=== PATIENT | male | born 1945 | race Caucasian/White ===

== ENCOUNTER 2017-12-27 14:37 | Inpatient (IN) | payer OTHER ==
[~2017-12-27] VITALS: Ht 177.8 cm; Wt 113.0 kg
[~2017-12-27 14:37] MED LIST: ALL300 PO; ASPEC81 PO; ATEN-175 PO; CRS20 PO; FRS/40 PO; LRTUNK PO; LVT/20 PO; OMEP40CA PO; POTA10CA28 PO; RNXER500 PO; XNX25 PO
--- NOTE | 2017-12-27 15:09 | DIAGNOSTIC IMAGING REPORT ---
SINGLE VIEW CHEST CLINICAL HISTORY: Atypical chest pain. FINDINGS: An AP, portable, upright chest radiograph is obtained. No prior studies are available for comparison at the time of dictation. The examination is degraded by portable technique and patient rotation. The patient is status post midline sternotomy. The heart is enlarged and there is atherosclerotic calcification of the thoracic aorta. There is pulmonary vascular congestion. Bilateral airspace opacities are identified, greatest in the right midlung. Small pleural effusions are suspected. No pneumothorax is seen. The skeletal structures are osteopenic. Advanced arthritic change is seen in the shoulders and thoracic spine. There is chronic posttraumatic deformity of the right clavicle. IMPRESSION: 1. Cardiomegaly with evidence of congestive failure. 2. There are bilateral airspace opacities, asymmetrically greater on the right. This could represent a component of interstitial edema versus superimposed pneumonia. Clinical correlation will be required. 3. Suspect small pleural effusions. Electronically signed by: Rafa Boyd M.D. 12/27/2017 3:08 PM Dictated Date/Time: 12/27/2017 3:06 PM
[2017-12-27] MEDS ORDERED: ASPIRIN 81 MG CHEW PO STA (15:18)
[2017-12-27 15:24] LABS: BASO % 0.2 %; BASO ABS # 0.03 K/uL (0-0.2); EOS % 0.1 %; EOS ABS # 0.01 K/uL (0-0.5); HEMATOCRIT 37.5 % (42-52); HEMOGLOBIN 13.4 g/dL (14.0-18.0); IG# 0.07 K/uL (0.00-0.02); LYMPH % 7.7 %; LYMPH ABS # 1.14 K/uL (1.2-3.4); MEAN CELL VOLUME 90.1 fL (80-100); MEAN CORPUSCULAR HEMOGLOBIN 32.2 pg (25-34); MEAN CORPUSCULAR HGB CONC 35.7 g/dl (32-36); MEAN PLATELET VOLUME 9.6 fL (7.4-10.4); MONO % 8.4 %; MONO ABS # 1.24 K/uL (0.11-0.59); NEUT % 83.1 %; NEUT ABS # 12.26 K/uL (1.4-6.5); PLATELET COUNT 223 K/uL (130-400); RED CELL DISTRIBUTION WIDTH CV 13.6 % (11.5-14.5); RED CELL DISTRIBUTION WIDTH SD 44.3 fL (36.4-46.3); WHITE BLOOD COUNT 14.75 K/uL (4.8-10.8)
[2017-12-27 15:40] LABS: BLOOD UREA NITROGEN 16 mg/dl (7-18); CALCIUM 9.4 mg/dl (8.5-10.1); CARBON DIOXIDE 28 mmol/L (21-32); CREATININE 1.37 mg/dl (0.60-1.40); GLUCOSE 162 mg/dl (70-99); POTASSIUM 3.1 mmol/L (3.5-5.1); SODIUM 132 mmol/L (136-145)
[2017-12-27] MEDS ORDERED: COEN30CA8 PO (15:44)
[2017-12-27] MEDS ORDERED: ROSU40TA PO (15:44)
[2017-12-27] MEDS ORDERED: ASPI-232 PO (15:44)
[2017-12-27] MEDS ORDERED: ALL300 PO (15:44)
[2017-12-27] MEDS ORDERED: ALPR0.25 PO (15:44)
[2017-12-27] MEDS ORDERED: OMEP40CA41 PO (15:44)
[2017-12-27] MEDS ORDERED: ATEN50TA PO ×2 (15:44)
[2017-12-27] MEDS ORDERED: RNXER500 PO (15:44)
[2017-12-27] MEDS ORDERED: HYDR-5803 PO (15:44)
[2017-12-27 15:45] LABS: CKMB < 0.5 ng/ml (0.5-3.6)
[2017-12-27] MEDS ORDERED: LEVAQUIN 750MG / 150ML D5W IV STA (16:07)
[2017-12-27] MEDS ORDERED: SODIUM CHLORIDE 0.9% 1000ML 1,000 ML IV STA (16:07)
[2017-12-27] MEDS ORDERED: OPTIRAY 320 IV PRN (16:30)
--- NOTE | 2017-12-27 17:21 | DIAGNOSTIC IMAGING REPORT ---
CT ANGIOGRAM OF THE CHEST CLINICAL HISTORY: Atypical chest pain. COMPARISON STUDY: Chest x-ray dated 12/27/2017. TECHNIQUE: Following the IV administration of 97 cc of Optiray 320, CT angiogram of the chest was performed from the upper abdomen to the thoracic inlet utilizing the pulmonary embolus protocol. Images are reviewed in the axial, sagittal, and coronal planes. 3-D MIPS images are created and assessed. IV contrast was administered without complication. A dose lowering technique was utilized adhering to the principles of ALARA. The examination is degraded by streak artifact from the left arm which could not be elevated above the chest. CT DOSE: 671.53 mGy.cm FINDINGS: Thyroid: Imaged portions of the thyroid gland are normal in size and attenuation. Thoracic aorta: There is atherosclerotic calcification of the thoracic aorta, which is normal in caliber and demonstrates bovine variant arch anatomy. No dissection is seen. Pulmonary vasculature: The pulmonary trunk is normal in caliber. There are no filling defects identified in main, lobar, or segmental pulmonary branches to suggest pulmonary embolus. Heart: The patient is status post midline sternotomy. The heart is enlarged and without pericardial effusion. The coronary arteries are densely calcified. Lungs and pleural spaces: Advanced emphysema is identified. The trachea and central airways are clear. No pleural effusion is seen. There is multifocal groundglass consolidation seen throughout the right lung as well as in the left upper lobe. A more nodular focus of consolidation is seen at the right lung base on image #75 and measures up to 1.4 cm. Mediastinum: There are scattered subcentimeter mediastinal lymph nodes. These are not pathologically enlarged by size criteria. Ava: Mildly enlarged right hilar nodes measure up to 14 mm in short axis. Axillae: There is no axillary lymphadenopathy. Upper abdomen: There is a small hiatal hernia. Partially visualized upper abdominal viscera is otherwise within normal limits. Gynecomastia is noted. Skeletal structures: The skeletal structures are osteopenic. Degenerative change and hyperkyphosis are noted in the thoracic spine. No lytic or blastic bony lesions are seen. Advanced arthritic change is noted in the left shoulder. There is chronic posttraumatic deformity of the right clavicle. IMPRESSION: 1. There is no evidence of pulmonary embolus in the main, lobar, or segmental pulmonary arteries. 2. Cardiomegaly and advanced emphysema. 3. There is multifocal groundglass consolidation seen throughout the right lung and in the left upper lobe. The appearance is most typical for an infectious/inflammatory pneumonitis. Edema or hemorrhage is considered less likely. Clinical correlation will be required. 4. There is a more nodular focus of consolidative change at the right lung base measuring up to 1.4 cm. Again, this is likely on an infectious/inflammatory basis. A follow-up chest CT in 3-4 months is recommended to document resolution. 5. A mildly enlarged right hilar node is likely on a reactive basis. 6. Additional findings as above. Electronically signed by: Rafa Boyd M.D. 12/27/2017 5:19 PM Dictated Date/Time: 12/27/2017 5:12 PM
--- NOTE | 2017-12-27 17:51 | EMERGENCY ROOM VISIT NOTE ---
History Report prepared by Sheila: Suzi Carroll Under the Supervision of: Dr. Fernando Mcnamara D.O. First contact with patient: 14:47 Chief Complaint: SHORTNESS OF BREATH Stated Complaint: SHORTNESS OF BREATH History of Present Illness The patient is a 72 year old male who presents to the Emergency Room with complaints of intermittent shortness of breath beginning Wednesday, six days ago. The patient reports his shortness of breath worsens with exertion. He also notes intermittent left sided chest pressure beginning 6 months ago which has more recently been worsening with exertion. His pain is relieved with resting. Presently, The patient reports a history of stable angina. The patient has a history of a heart attack and stents in 1999. He also notes a cough which is been present for the past 2 days. He has been coughing up a green productive sputum. No fevers. He denies any new swelling in his legs. The patient takes a baby aspirin daily. Pt denies headache, change in vision, fevers, nausea, vomiting, diarrhea, pain with urination, and melena. Source of History: patient Onset: 6 days ago Position: other (generalized) Quality: other (shortness of breath) Timing: intermittent Modifying Factors (Worsening): exertion Associated Symptoms: + cough, + chest pain, + SOB, No fevers, No nausea, No vomiting, No diarrhea, No urinary symptoms Review of Systems See HPI for pertinent positives & negatives. A total of 10 systems reviewed and were otherwise negative. Past Medical & Surgical Medical Problems: (1) Heart attack Surgical Problems: (1) H/O heart artery stent Family History Patient reports no known family medical history. Social History Smoking Status: Former Smoker Marital Status: Housing Status: lives with significant other Occupation Status: retired Current/Historical Medications Scheduled Allopurinol (Allopurinol), 1 TAB PO DAILY Aspirin (Aspir-81), 1 TAB PO DAILY Atenolol (Tenormin), 1 TAB PO PM Atenolol (Tenormin), 100 MG PO QAM Coenzyme Q10 (Ubidecarenone) (Coq-10), 120 MG PO DAILY Furosemide (Lasix), 40 MG PO DAILY Omeprazole (Prilosec), 40 MG PO DAILY Potassium Chloride (Micro-K Ext Rel), 10 MEQ PO DAILY Ranolazine (Ranexa), 1 TAB PO BID Rosuvastatin Calcium (Crestor), 40 MG PO DAILY Vardenafil (Levitra), 20 MG PO DIRECTED Scheduled PRN Alprazolam (Xanax), 0.25 MG PO TID PRN for Anxiety Hydrocodone-Acetaminophen (Hydrocodone Bitartrate/AC 7.5-325 mg), 1 TAB PO Q6H PRN for Pain Allergies Coded Allergies: Sulfa Drugs (Verified Allergy, Unknown, 12/27/17) Physical Exam Vital Signs Date Time Temp Pulse Resp B/P (MAP) Pulse Ox O2 Delivery O2 Flow Rate FiO2 12/27/17 16:40 74 17 112/58 91 Room Air 12/27/17 14:44 36.7 86 20 127/79 91 Room Air Physical Exam GENERAL: Sitting up in bed, alert, ill appearing, well nourished, no distress, non-toxic EYE EXAM: normal conjunctiva. OROPHARYNX: no exudate, no erythema, lips, buccal mucosa, and tongue normal and mucous membranes are moist NECK: supple, no nuchal rigidity, no adenopathy, non-tender LUNGS: Clear to auscultation. Normal chest wall mechanics HEART: no murmurs, S1 normal and S2 normal ABDOMEN: abdomen soft, non-tender, normo-active bowel sounds, no masses, no rebound or guarding. BACK: Back is symmetrical on inspection and there is no deformity, no midline tenderness, no CVA tenderness. SKIN: no rashes and no bruising UPPER EXTREMITIES: upper extremities are grossly normal. LOWER EXTREMITIES: No pitting edema. Calves equal bilaterally. NEURO EXAM: Normal sensorium, cranial nerves II-XII grossly intact, normal speech, no gross weakness of arms, no gross weakness of legs. Medical Decision & Procedures ER Provider Diagnostic Interpretation: Radiology results as stated below per my review and the radiologist's interpretation: SINGLE VIEW CHEST FINDINGS: An AP, portable, upright chest radiograph is obtained. No prior studies are available for comparison at the time of dictation. The examination is degraded by portable technique and patient rotation. The patient is status post midline sternotomy. The heart is enlarged and there is atherosclerotic calcification of the thoracic aorta. There is pulmonary vascular congestion. Bilateral airspace opacities are identified, greatest in the right midlung. Small pleural effusions are suspected. No pneumothorax is seen. The skeletal structures are osteopenic. Advanced arthritic change is seen in the shoulders and thoracic spine. There is chronic posttraumatic deformity of the right clavicle. IMPRESSION: 1. Cardiomegaly with evidence of congestive failure. 2. There are bilateral airspace opacities, asymmetrically greater on the right. This could represent a component of interstitial edema versus superimposed pneumonia. Clinical correlation will be required. 3. Suspect small pleural effusions. Electronically signed by: Rafa Boyd M.D. CT ANGIOGRAM OF THE CHEST FINDINGS: Thyroid: Imaged portions of the thyroid gland are normal in size and attenuation. Thoracic aorta: There is atherosclerotic calcification of the thoracic aorta, which is normal in caliber and demonstrates bovine variant arch anatomy. No dissection is seen. Pulmonary vasculature: The pulmonary trunk is normal in caliber. There are no filling defects identified in main, lobar, or segmental pulmonary branches to suggest pulmonary embolus. Heart: The patient is status post midline sternotomy. The heart is enlarged and without pericardial effusion. The coronary arteries are densely calcified. Lungs and pleural spaces: Advanced emphysema is identified. The trachea and central airways are clear. No pleural effusion is seen. There is multifocal groundglass consolidation seen throughout the right lung as well as in the left upper lobe. A more nodular focus of consolidation is seen at the right lung base on image #75 and measures up to 1.4 cm. Mediastinum: There are scattered subcentimeter mediastinal lymph nodes. These are not pathologically enlarged by size criteria. Ava: Mildly enlarged right hilar nodes measure up to 14 mm in short axis. Axillae: There is no axillary lymphadenopathy. Upper abdomen: There is a small hiatal hernia. Partially visualized upper abdominal viscera is otherwise within normal limits. Gynecomastia is noted. Skeletal structures: The skeletal structures are osteopenic. Degenerative change and hyperkyphosis are noted in the thoracic spine. No lytic or blastic bony lesions are seen. Advanced arthritic change is noted in the left shoulder. There is chronic posttraumatic deformity of the right clavicle. IMPRESSION: 1. There is no evidence of pulmonary embolus in the main, lobar, or segmental pulmonary arteries. 2. Cardiomegaly and advanced emphysema. 3. There is multifocal groundglass consolidation seen throughout the right lung and in the left upper lobe. The appearance is most typical for an infectious/inflammatory pneumonitis. Edema or hemorrhage is considered less likely. Clinical correlation will be required. 4. There is a more nodular focus of consolidative change at the right lung base measuring up to 1.4 cm. Again, this is likely on an infectious/inflammatory basis. A follow-up chest CT in 3-4 months is recommended to document resolution. 5. A mildly enlarged right hilar node is likely on a reactive basis. 6. Additional findings as above. Electronically signed by: Rafa Boyd M.D. Laboratory Results 12/27/17 15:13 Red Blood Count 4.16, Mean Corpuscular Volume 90.1, Mean Corpuscular Hemoglobin 32.2, Mean Corpuscular Hemoglobin Concent 35.7, Mean Platelet Volume 9.6, Neutrophils (%) (Auto) 83.1, Lymphocytes (%) (Auto) 7.7, Monocytes (%) (Auto) 8.4, Eosinophils (%) (Auto) 0.1, Basophils (%) (Auto) 0.2, Neutrophils # (Auto) 12.26, Lymphocytes # (Auto) 1.14, Monocytes # (Auto) 1.24, Eosinophils # (Auto) 0.01, Basophils # (Auto) 0.03 12/27/17 15:13 Test 12/27/17 15:13 White Blood Count 14.75 K/uL (4.8-10.8) Red Blood Count 4.16 M/uL (4.7-6.1) Hemoglobin 13.4 g/dL (14.0-18.0) Hematocrit 37.5 % (42-52) Mean Corpuscular Volume 90.1 fL (80-100) Mean Corpuscular Hemoglobin 32.2 pg (25-34) Mean Corpuscular Hemoglobin Concent 35.7 g/dl (32-36) Platelet Count 223 K/uL (130-400) Mean Platelet Volume 9.6 fL (7.4-10.4) Neutrophils (%) (Auto) 83.1 % Lymphocytes (%) (Auto) 7.7 % Monocytes (%) (Auto) 8.4 % Eosinophils (%) (Auto) 0.1 % Basophils (%) (Auto) 0.2 % Neutrophils # (Auto) 12.26 K/uL (1.4-6.5) Lymphocytes # (Auto) 1.14 K/uL (1.2-3.4) Monocytes # (Auto) 1.24 K/uL (0.11-0.59) Eosinophils # (Auto) 0.01 K/uL (0-0.5) Basophils # (Auto) 0.03 K/uL (0-0.2) RDW Standard Deviation 44.3 fL (36.4-46.3) RDW Coefficient of Variation 13.6 % (11.5-14.5) Immature Granulocyte % (Auto) 0.5 % Immature Granulocyte # (Auto) 0.07 K/uL (0.00-0.02) D-Dimer 1530 ug/L FEU (0-500) Anion Gap 12.0 mmol/L (3-11) Estimated GFR () 60.1 Estimated GFR (Non- 51.9 BUN/Creatinine Ratio 11.9 (10-20) Calcium Level 9.4 mg/dl (8.5-10.1) Total Creatine Kinase 46 U/L (39-308) Creatine Kinase MB < 0.5 ng/ml (0.5-3.6) Creatine Kinase MB Ratio (0-3.0) Troponin I < 0.015 ng/ml (0-0.045) Laboratory results per my review. Medications Administered Medications (Trade) Dose Ordered Sig/Janine Route Start Time Stop Time Status Last Admin Dose Admin Aspirin (Aspirin Chew) 324 mg NOW STAT PO 12/27/17 15:18 12/27/17 15:19 DC 12/27/17 15:33 324 MG Sodium Chloride 1,000 ml @ 999 mls/hr Q1H1M STAT IV 12/27/17 16:07 12/27/17 17:07 DC 12/27/17 16:44 999 MLS/HR Levofloxacin (Levaquin / D5W) 750 mg NOW STAT IV 12/27/17 16:07 12/27/17 16:08 DC 12/27/17 16:45 750 MG ECG Per My Interpretation Indication: SOB/dyspnea Rate (beats per minute): 84 Rhythm: sinus rhythm Findings: T-wave inversion (Anterior and inferior), other (prolonged QT) Comparison ECG Date: 02/16/06 Change: changes are new ED Course ED COURSE: Vital signs were reviewed and showed hypoxic The patients medical record was reviewed The above diagnostic studies were performed and reviewed. ED treatments and interventions as stated above. 1448: The patient was evaluated in room C4. A complete history and physical examination was performed. 1518: Ordered Aspirin 324 mg PO. 1605: The patient is now reporting a green productive cough over past two days. 1607: Ordered Levofloxacin 750 mg IV, Sodium Chloride 1000 ml @ 999 mls/hr IV. 1722: I reviewed the patient's case with Paulette Echavarria. She will evaluate the patient for further management. 1726: Upon reevaluation, the patient is resting comfortably.I discussed my findings with the patient and he understands and agrees with the treatment plan. Based on the patients age, coexisting illnesses, exam and lab findings the decision to treat as an inpatient was made. The patient remained stable while under my care. The patient will be evaluated for further management. Medical Decision Differential diagnoses includes but is not limited to acute coronary syndrome, myocardial infarction, pericarditis, pulmonary embolus, aortic dissection, pneumonia, pneumothorax, musculoskeletal, shingles, esophageal. Patient is a 72-year-old male that presents to ER for shortness of breath with exertion associated with worsening chest pain with exertion over the past 6 months. CBC shows a mild leukocytosis of 14,000. BMP shows a potassium of 3.1. Troponin was negative. Chest x-ray shows likely bilateral pneumonia. Patient was given IV antibiotics with. With the elevated d-dimer and slight hypoxia with pulse ox of 89-91% patient was sent for CT PE which did show bilateral pneumonia. Updated patient at bedside. Discussed with internal medicine. He was admitted for further workup. EKG did show new T-wave changes which I do favor secondary to infection. Medication Reconcilliation Current Medication List: was personally reviewed by me Blood Pressure Screening Patient's blood pressure: Normal blood pressure Consults Time Called: 171 Consulting Physician: Paulette Echavarria Returned Call: [phone] I reviewed the patient's case with Paulette Echavarria. She will evaluate the patient for further management. Impression Primary Impression: Bilateral pneumonia Additional Impression: Hypoxia Scribe Attestation The scribe's documentation has been prepared under my direction and personally reviewed by me in its entirety. I confirm that the note above accurately reflects all work, treatment, procedures, and medical decision making performed by me. Departure Information Dispostion Being Evaluated By Hospitalist Referrals Hernando Arroyo D.O. (PCP) Patient Instructions My [facility] Problem Qualifiers Primary Impression: Bilateral pneumonia Pneumonia type: due to unspecified organism Lung location: unspecified part of lung Qualified Codes: J18.9 - Pneumonia, unspecified organism
[2017-12-27] MEDS ORDERED: ACETAMINOPHEN 325 MG TAB PO PRN (18:30)
[2017-12-27] MEDS ORDERED: ONDANSETRON INJ 2 MG/ML 2 ML VIAL IV PRN (18:30)
[2017-12-27] MEDS ORDERED: ALUMINUM/MAGNESIUM/SIMETH (MAALOX MAX) 30 ML UDC PO PRN (18:30)
[2017-12-27] MEDS ORDERED: ALBUT/IPRATROP 3MG/0.5MG NEB 3 ML VIAL INH PRN (18:30)
[2017-12-27] MEDS ORDERED: POLYETHYLENE (MIRALAX) 17 GM PACK PO PRN (18:30)
[2017-12-27] MEDS ORDERED: HYDR-5688 PO (18:34)
[2017-12-27] MEDS ORDERED: ALPR0.5T PO (18:34)
[2017-12-27] MEDS ORDERED: OMEP20CA9 PO (18:51)
[2017-12-27] MEDS ORDERED: CLR10 PO (18:51)
[2017-12-27] MEDS ORDERED: METO2.5T PO (18:51)
[2017-12-27] MEDS ORDERED: DEXT30TA7 PO (18:51)
[2017-12-27] MEDS ORDERED: SILD100T PO (18:51)
[2017-12-27] MEDS ORDERED: CHOL1TAB79 PO (18:51)
[2017-12-27] MEDS ORDERED: HYDROCODONE/ACETAMIN 5/325MG TAB PO PRN (19:00)
[2017-12-27] MEDS ORDERED: LORATADINE 10 MG TAB PO PRN (19:00)
[2017-12-27] MEDS ORDERED: GUAIFENESIN 600 MG TABCR PO PRN (19:00)
[2017-12-27] MEDS ORDERED: ALPRAZOLAM 0.5 MG TAB PO PRN (19:00)
--- NOTE | 2017-12-27 19:03 | History and Physical ---
History & Physical Date & Time of Service: Dec 27, 2017 at 18:54 Chief Complaint: Shortness Of Breath Primary Care Physician: Hernando Arroyo D.O. History of Present Illness Source: patient, clinic records, hospital records Patient is a 72-year-old male with the PMH of mixed systolic and diastolic CHF, CAD (CABG in ', stents in '), stable angina, h/o bladder cancer and other medical problems listed below who presents with worsening SOB 2 weeks. Patient is normally able to climb a flight of stairs without becoming SOB but has been unable to do that over the past few weeks. Endorses low-grade fever, chills and productive cough with green sputum over the past few days. Feels fatigued and endorses orthopnea. Denies weight gain, PND or LE swelling. Does not require home O2. Has been taking all medications as prescribed. Has been experiencing intermittent left-sided chest pain with exertion that is relieved with rest. States that this pain is no different than bouts of stable angina experienced in the past. Currently denies fever, chills, lightheadedness, headache, near syncope, visual changes, chest pain, palpitations, abdominal pain , nausea, vomiting, bowel or bladder changes or LE swelling. Past Medical/Surgical History Medical Problems: (1) Anxiety Status: Chronic (2) CAD (coronary artery disease) Permanent Comment: s/p CABG x 3 in 1993, stents x 3 in 1999, 2009 cardiac cath without worsening disease Status: Chronic (3) Gout Status: Chronic (4) H/O carcinoma of bladder Status: Chronic (5) HLD (hyperlipidemia) Status: Chronic (6) Left carotid stenosis Status: Chronic (7) Osteoarthritis Status: Chronic (8) Systolic and diastolic CHF, chronic Status: Chronic Surgical Problems: (1) H/O heart artery stent Status: Chronic Family History Diabetes mellitus FH: heart disease Social History Smoking Status: Former Smoker Alcohol Use: none Marital Status: Housing status: lives with significant other Occupational Status: retired Immunizations History of Tetanus Vaccine?: 2004 History of Pneumococcal: 2002 History of Hepatitis B Vaccine: No Allergies Coded Allergies: Sulfa Antibiotics (Verified Allergy, Unknown, ., 12/27/17) Home Medications Scheduled Allopurinol (Allopurinol), 1 TAB PO DAILY Aspirin (Aspir-81), 1 TAB PO DAILY Atenolol (Tenormin), 1 TAB PO PM Atenolol (Tenormin), 100 MG PO QAM Cholecalciferol (D3 2000), 1 TAB PO HS Coenzyme Q10 (Ubidecarenone) (Coq-10), 120 MG PO DAILY Furosemide (Lasix), 40 MG PO DAILY Metolazone (Zaroxolyn), 2.5 MG PO Black Omeprazole (Prilosec), 20 MG PO DAILY Potassium Chloride (Micro-K Ext Rel), 10 MEQ PO BID Ranolazine (Ranexa), 1 TAB PO BID Rosuvastatin Calcium (Crestor), 40 MG PO HS Sildenafil Citrate (Viagra), 100 MG PO PRN Scheduled PRN Alprazolam (Xanax), 1 TAB PO TID PRN for Anxiety/Insomnia Dextromethorphan-Guaifenesin (Mucinex Dm), 1 TAB PO Q12 PRN for Cough Hydrocodone/Acetaminophen 5MG/325MG (Whatley 5MG/325MG), 1 TABLET PO Q6H PRN for Pain Loratadine (Claritin), 10 MG PO DAILY PRN for Seasonal Allergies Review of Systems Constitutional: + fever, + chills, + fatigue Eyes: No worsening of vision, No diplopia ENT: + nasal symptoms, No hearing loss, No sore throat, No tinnitus Respiratory: + cough, + sputum, + wheezing, + shortness of breath, + dyspnea on exertion, No dyspnea at rest Cardiovascular: + orthopnea, No chest pain, No PND, No edema, No palpitations Abdomen: No pain, No nausea, No vomiting, No diarrhea, No constipation Genitourinary - Male: No hematuria, No dysuria Neurologic: No weakness, No numbness/tingling Integumentary: No rash, No itch, No new/changing skin lesions Physical Exam Vital Signs Date Time Temp Pulse Resp B/P (MAP) Pulse Ox O2 Delivery O2 Flow Rate FiO2 12/27/17 18:24 74 20 113/52 90 Room Air 12/27/17 16:40 74 17 112/58 91 Room Air 12/27/17 14:44 36.7 86 20 127/79 91 Room Air General Appearance: WD/WN, no apparent distress Head: normocephalic, atraumatic Eyes: normal inspection, PERRL, sclerae normal ENT: normal ENT inspection, hearing grossly normal, pharynx normal (dry mucous membranes ), + nasal congestion Neck: supple, thyroid normal, no JVD, trachea midline Respiratory/Chest: chest non-tender, no respiratory distress, no accessory muscle use, + crackles (bibasilar crackles. No wheezing or rhonchi ), + pertinent finding (Normal O2 saturation on room air ) Cardiovascular: regular rate, rhythm, no murmur, normal peripheral pulses, + pertinent finding (Trace BLE edema) Abdomen/GI: non tender, soft, no organomegaly Back: normal inspection Extremities/Musculoskelatal: normal inspection, no calf tenderness, no pedal edema Neurologic/Psych: no motor/sensory deficits, alert, normal mood/affect, oriented x 3 Skin: normal color, warm/dry Diagnostics Laboratory Results Results Past 24 Hours Test 12/27/17 15:13 12/27/17 18:44 Range/Units White Blood Count 14.75 4.8-10.8 K/uL Red Blood Count 4.16 4.7-6.1 M/uL Hemoglobin 13.4 14.0-18.0 g/dL Hematocrit 37.5 42-52 % Mean Corpuscular Volume 90.1 80-100 fL Mean Corpuscular Hemoglobin 32.2 25-34 pg Mean Corpuscular Hemoglobin Concent 35.7 32-36 g/dl Platelet Count 223 130-400 K/uL Mean Platelet Volume 9.6 7.4-10.4 fL Neutrophils (%) (Auto) 83.1 % Lymphocytes (%) (Auto) 7.7 % Monocytes (%) (Auto) 8.4 % Eosinophils (%) (Auto) 0.1 % Basophils (%) (Auto) 0.2 % Neutrophils # (Auto) 12.26 1.4-6.5 K/uL Lymphocytes # (Auto) 1.14 1.2-3.4 K/uL Monocytes # (Auto) 1.24 0.11-0.59 K/uL Eosinophils # (Auto) 0.01 0-0.5 K/uL Basophils # (Auto) 0.03 0-0.2 K/uL RDW Standard Deviation 44.3 36.4-46.3 fL RDW Coefficient of Variation 13.6 11.5-14.5 % Immature Granulocyte % (Auto) 0.5 % Immature Granulocyte # (Auto) 0.07 0.00-0.02 K/uL D-Dimer 1530 0-500 ug/L FEU Sodium Level 132 136-145 mmol/L Potassium Level 3.1 3.5-5.1 mmol/L Chloride Level 92 98-107 mmol/L Carbon Dioxide Level 28 21-32 mmol/L Anion Gap 12.0 3-11 mmol/L Blood Urea Nitrogen 16 7-18 mg/dl Creatinine 1.37 0.60-1.40 mg/dl Estimated GFR () 60.1 Estimated GFR (Non- 51.9 BUN/Creatinine Ratio 11.9 10-20 Random Glucose 162 70-99 mg/dl Calcium Level 9.4 8.5-10.1 mg/dl Total Creatine Kinase 46 39-308 U/L Creatine Kinase MB < 0.5 0.5-3.6 ng/ml Creatine Kinase MB Ratio 0-3.0 Troponin I < 0.015 0-0.045 ng/ml Pro-B-Type Natriuretic Peptide 1147 0-900 pg/ml Procalcitonin 0.11 0-0.5 ng/ml Microbiology Results 12/27/17 Blood Culture, Ordered Pending 12/27/17 Blood Culture, Ordered Pending Diagnostic Radiology CXR: IMPRESSION: 1. Cardiomegaly with evidence of congestive failure. 2. There are bilateral airspace opacities, asymmetrically greater on the right. This could represent a component of interstitial edema versus superimposed pneumonia. Clinical correlation will be required. 3. Suspect small pleural effusions. Chest/thorax CTA: IMPRESSION: 1. There is no evidence of pulmonary embolus in the main, lobar, or segmental pulmonary arteries. 2. Cardiomegaly and advanced emphysema. 3. There is multifocal groundglass consolidation seen throughout the right lung and in the left upper lobe. The appearance is most typical for an infectious/inflammatory pneumonitis. Edema or hemorrhage is considered less likely. Clinical correlation will be required. 4. There is a more nodular focus of consolidative change at the right lung base measuring up to 1.4 cm. Again, this is likely on an infectious/inflammatory basis. A follow-up chest CT in 3-4 months is recommended to document resolution. 5. A mildly enlarged right hilar node is likely on a reactive basis. 6. Additional findings as above. EKG Normal sinus rhythm, Nonspecific ST and T wave abnormality, Prolonged QT Impression Assessment and Plan Patient is a 72-year-old male with the PMH of mixed systolic and diastolic CHF, CAD (CABG in , stents in ), stable angina, h/o bladder cancer and other medical problems listed below who presents with worsening SOB 2 weeks. Community acquired bilateral PNA: -Chest/thorax CTA with multifocal ground glass consolidation seen throughout the right lung and in the left upper lobe most consistent with infectious/inflammatory pneumonitis -Leukocytosis of 12.86. Afebrile, vitals are stable -Procalcitonin wnl. Lactate pending -Rocephin and azithromycin -Blood and sputum cultures pending -Nebs, mucinex PRN Mixed systolic and diastolic CHF: -Compensated on exam -Follows with Dr. Payan in clinic -Most recent echo in 2015 -EF 50-54% -Mid and apical septum hypokinesis -Grade I diastolic dysfunction -Repeat echo -Continue home diuretics CAD, stable angina: -CABG in , stents in -Cardiac cath in 2009 without progression of disease -Reports recent stable angina but no CP on exam -Repeat EKG in AM -Trop negative. Repeat x 1 -Cont Ranexa HLD: -Cont statin Gout: -Cont allopurinol H/o bladder cancer: -Follows with urology for annual maintenance cystoscopy Anxiety: -Stable -Xanax PRN Chronic MSK pain: -Whatley PRN Pulmonary nodule: -Finding on CTA chest/thorax. -Nodular focus of 1.4cm consolidative change at the right lung. Likely on an infectious/inflammatory basis. -Follow-up chest CT in 3-4 months is recommended to document resolution. DVT Ppx: SQ heparin Code status: FULL PCP: Cruz Dispo: Admit to telemetry. Plan to return home once medically stable. Patient seen in collaboration with Dr. Ruvalcaba. Please see addendum. Attending Note: Patient is a 72 yr male with PMH of CHF, CAD S/P CABG, COPD and other problems presents with history of worsening SOB with minimal exertion since 2 weeks duration. Reports associated low grade fever, chills, cough with greenish sputum , diaphoresis. Has chronic Orthopnea. Denies weight gain and states his legs swelling is well controlled when compared to his previous state. Denies sick contacts. Reports chronic anginal symptoms. CTA is suggestive of multifocal consolidation. Physical Exam: Vitals signs as noted above General Appearance:Moderately built and nourished, no apparent distress Head: normocephalic, Atraumatic Eyes: normal inspection, EOMI, PERRL Neck: supple, Trachea midline Respiratory/Chest: Normal breath sounds, Minimal Basal creps Cardiovascular: S1, S2, No murmur Abdomen/GI:Soft, Non tender, Bowel sounds present Extremities/Musculoskelatal:normal inspection, trace edema Neurologic/Psych:AAOX3, grossly no focal neurological deficits Skin:normal color,warm, Post CABG scar on chest Assessment and Plan: Multifocal Pneumonia: Clinically looks dehydrated though CXR suggestive of mild congestion IV Abx, Cultures ordered Gentle IV fluids given H/O CHF check lactate levels Hypokalemia: Replace and monitor check Mag levels I personally reviewed the record. Patient is interviewed and examined at bedside. Patient's care is coordinated with Paulette Cisneros PA-C. Please refer to the documentation above for details of patient's presentation and for discussion of other issues. Resuscitation Status VTE Prophylaxis Will order VTE Prophylaxis: Yes
--- NOTE | 2017-12-27 19:22 | DIAGNOSTIC IMAGING REPORT ---
BILATERAL LOWER EXTREMITY VENOUS DOPPLER CLINICAL HISTORY: r/o DVT COMPARISON STUDY: No previous studies for comparison. TECHNIQUE: Sonography of the deep venous system of the bilateral lower extremities was performed. Compression and augmentation were evaluated. FINDINGS: The common femoral, superficial femoral and popliteal veins were compressible. Augmentation was normal. Flow was shown within the deep calf vessels. Slow flow is incidentally noted. IMPRESSION: No evidence of deep venous thrombus within the bilateral lower extremities. Electronically signed by: Lele Vora M.D. 12/27/2017 7:21 PM Dictated Date/Time: 12/27/2017 7:19 PM
[2017-12-27 20:00] VITALS: BP 123/50; TEMP 36.6; O2SAT 96; Ht 177.8 cm; Wt 113.0 kg
[2017-12-27] MEDS ORDERED: POTASSIUM CHLORIDE 20 MEQ TABCR PO ONE (20:00)
[2017-12-27 20:07] VITALS: BP 123/50; PULSE 75; TEMP 36.6; O2SAT 96
[2017-12-27] MEDS: CEFTRIAXONE SOD INJ 2,000 MG in DEXTROSE 5% 50ML 50 ML IV SCH (20:11)
[2017-12-27] MEDS: AZITHROMYCIN IV 500 MG in DEXTROSE 5% 250ML 250 ML IV SCH (20:13)
[2017-12-27] MEDS: RANOLAZINE 500 MG ER TAB PO SCH (20:14)
[2017-12-27] MEDS: CHOLECALCIFEROL 1000 INTER.UNIT TAB PO SCH (20:16)
[2017-12-27] MEDS: ROSUVASTATIN CALCIUM 20 MG TAB PO SCH (20:16)
[2017-12-27 21:58] LABS: INR 1.3 (0.9-1.1)
[2017-12-27] MEDS: HEPARIN SOD 5000 UNIT/0.5 ML CARP SQ SCH (22:00)
[2017-12-27 23:47] VITALS: BP 106/46; PULSE 76; TEMP 36.8; O2SAT 91
[2017-12-28] VITALS (8 sets, daily range): BP systolic 118–136; BP diastolic 55–72; PULSE 65–79; TEMP 36.3–37.1; O2SAT 91–98
[2017-12-28] MEDS ORDERED: SODIUM CHLORIDE 0.9% 1000ML 500 ML IV ONE (00:15)
[2017-12-28] MEDS: HEPARIN SOD 5000 UNIT/0.5 ML CARP SQ SCH ×3 (05:47→21:26)
[2017-12-28 05:57] LABS: HEMOGLOBIN 11.9 g/dL (14.0-18.0); MEAN CELL VOLUME 91.2 fL (80-100); MEAN CORPUSCULAR HEMOGLOBIN 31.9 pg (25-34); PLATELET COUNT 195 K/uL (130-400); RED CELL DISTRIBUTION WIDTH CV 13.7 % (11.5-14.5); RED CELL DISTRIBUTION WIDTH SD 45.2 fL (36.4-46.3); WHITE BLOOD COUNT 10.73 K/uL (4.8-10.8)
[2017-12-28 06:32] LABS: CALCIUM 8.9 mg/dl (8.5-10.1); CREATININE 1.12 mg/dl (0.60-1.40); POTASSIUM 3.4 mmol/L (3.5-5.1)
[2017-12-28] MEDS: PANTOprazole SOD 40 MG TAB PO SCH (07:55)
[2017-12-28] MEDS: ALLOPURINOL 300 MG TAB PO SCH (07:56)
[2017-12-28] MEDS: FUROSEMIDE 40 MG TAB PO SCH (07:56)
[2017-12-28] MEDS ORDERED: PERFLUTREN LIPID MICROSPHERE (DEFINITY) IV ONE (07:56)
[2017-12-28] MEDS: RANOLAZINE 500 MG ER TAB PO SCH ×2 (07:57→20:22)
[2017-12-28] MEDS: POTASSIUM CHLORIDE 10 MEQ TABCR PO SCH ×2 (07:57→20:24)
[2017-12-28] MEDS: ASPIRIN 81 MG ECTAB PO SCH (07:57)
--- NOTE | 2017-12-28 08:56 | ECHOCARDIOGRAM REPORT ---
*NOTICE TO RECEIVING DEMOCRAT AGENCY This information is strictly Confidential and protected under [place] law. [place] law prohibits you from making any further disclosure of this information unless further disclosure is expressly permitted by the written consent of the person to whom it pertains or is authorized by law. A general authorization for the release of medical or other information is not sufficient for this purpose. Hospital accepts no responsibility if the information is made available to any other person, INCLUDING THE PATIENT. Interpretation Summary * Name: ZINA SHAFER Study Date: 12/28/2017 06:40 AM BP: 119/55 mmHg * Patient Location: C.2E\S\E206\S\1 HR: 65 * : 1945 (M/d/yyyy) Gender: Male Height: 72 in * Age: 72 yrs Ethnicity: [place] Weight: 250 lb * Ordering Physician: Paulette Cisneros * Referring Physician: Hernando Arroyo D.O. * Performed By: Miriam Brar RCS * * Reason For Study: CHF * BSA: 2.3 m2 * -- Conclusions -- * No significant change compared to previous study of 11/18/15. * Normal LV chamber size with mild concentric LVH. * Low normal LV systolic function with hypokinesis of the mid to apical anteroseptal and inferoseptal watkins, EF 50-55%. * Grade II diastolic dysfunction. * Aortic valve sclerosis mild, without significant aortic valvular stenosis. * Mild mitral regurgitaiton. * Moderate left atrial enlargement. Procedure Details * A complete two-dimensional transthoracic echocardiogram was performed (2D, M-mode, Doppler and color flow Doppler). * A contrast injection of Definity was performed to improve assessment of LV function. * Contrast was injected into an intravenous site in the left arm. * One vial of Definity ultrasound contrast was diluted in normal saline to a total volume of 10 ml. A total of '1' ml of solution was administered during imaging. * Lot # [id number] of Definity utilized for procedure. * Expiration date 1APR19. * The attending nurse who injected the contrast agent was Solis Bro RN. Left Ventricle * The left ventricle is normal in size. * There is mild concentric left ventricular hypertrophy. * Ejection Fraction = 50-55%. * Left ventricular systolic function is normal. * No segmental left ventricular wall motion abnormalities are noted. * The left ventricular wall motion is normal. Right Ventricle * The right ventricular cavity size is normal (basal dimension <4.2 cm in right ventricular apical 4-chamber view). * The right ventricular systolic function is normal as assessed by tricuspid annular plane systolic excursion (TAPSE) (normal >1.5 cm). Atria * The left atrium is moderately dilated. * Right atrial size is normal. * No ASD detected; PFO is not assessed. Mitral Valve * The mitral valve anatomy is normal. * There is no mitral valve stenosis. * There is mild mitral regurgitation. Tricuspid Valve * The tricuspid valve is normal in structure and function. Aortic Valve * The aortic valve is trileaflet. * Aortic valve sclerosis mild, without significant aortic valvular stenosis. * There is no significant aortic regurgitation. Pulmonic Valve * The pulmonary valve is not well seen, but the Doppler examination is normal without significant regurgitation or stenosis. Great Vessels * The aortic root and proximal ascending aorta are normal sized. Pericardium/Pleural * There is no pericardial effusion. Left Ventricular Diastolic Function * Diastolic dysfunction, Grade II (pseudonormalization pattern). MMode 2D Measurements and Calculations IVSd 1.0 cm IVSs 1.3 cm LVIDd 6.4 cm LVIDs 5.4 cm LVPWd 1.0 cm LVPWs 1.3 cm IVS/LVPW 1.0 FS 16.1 % EDV(Teich) 207.2 ml ESV(Teich) 138.7 ml EF(Teich) 33.1 % EDV(cubed) 259.9 ml ESV(cubed) 153.7 ml EF(cubed) 40.9 % % IVS thick 23.2 % % LVPW thick 27.7 % LV mass(C)d 281.0 grams LV mass(C)dI 120.0 grams/m\S\2 LV mass(C)s 284.8 grams LV mass(C)sI 121.6 grams/m\S\2 SV(Teich) 68.5 ml SI(Teich) 29.2 ml/m\S\2 SV(cubed) 106.2 ml SI(cubed) 45.3 ml/m\S\2 Ao root diam 3.7 cm Ao root area 10.7 cm\S\2 ACS 1.6 cm LA dimension 5.2 cm asc Aorta Diam 3.7 cm LA/Ao 1.4 EDV(MOD-sp4) 90.4 ml ESV(MOD-sp4) 60.2 ml EF(MOD-sp4) 33.4 % EDV(MOD-sp2) 77.3 ml ESV(MOD-sp2) 43.0 ml EF(MOD-sp2) 44.3 % SV(MOD-sp4) 30.1 ml SI(MOD-sp4) 12.9 ml/m\S\2 SV(MOD-sp2) 34.2 ml SI(MOD-sp2) 14.6 ml/m\S\2 Doppler Measurements and Calculations MV E max magdalene 89.0 cm/sec MV A max magdalene 77.5 cm/sec MV E/A 1.1 MV P1/2t max magdalene 97.4 cm/sec MV P1/2t 80.9 msec MVA(P1/2t) 2.7 cm\S\2 MV dec slope 352.4 cm/sec\S\2 MV dec time 0.20 sec Ao V2 max 122.2 cm/sec Ao max PG 6.0 mmHg Ao max PG (full) 2.1 mmHg LV V1 max PG 3.8 mmHg LV V1 max 97.9 cm/sec PA V2 max 110.1 cm/sec PA max PG 4.8 mmHg PI max magdalene 244.8 cm/sec PI max PG 24.0 mmHg PI dec slope 241.9 cm/sec\S\2 PI P1/2t 296.4 msec TR max magdalene 314.4 cm/sec
--- NOTE | 2017-12-28 10:55 | Progress Note ---
Medicine Progress Note Date & Time of Visit: Dec 28, 2017 at 10:47. Subjective 72-year-old man admitted for treatment of pneumonia. Patient denies fevers, chills, breathing issues and is not on supplemental oxygen this morning. He reports overall clinical improvement since yesterday. He denies any sick contacts or recent travel history. He is tolerating p.o. He reports ambulating without assistance device at baseline Objective Last 8 Hrs Date Time Temp Pulse Resp B/P (MAP) Pulse Ox O2 Delivery O2 Flow Rate FiO2 12/28/17 08:29 37.0 79 18 118/63 (81) 98 12/28/17 08:00 Room Air 12/28/17 04:00 96 Room Air 12/28/17 03:43 37.1 65 18 119/55 (76) 91 Room Air Physical Exam: GEN: WNWD, in no acute distress, alert and appropriate HEENT: NC/AT, pupils are equal and round bilaterally, normal sclerae, MMM CARDIO: reg rate, S1/2 heard without m/g/r LUNGS: coarse rhonchi scattered, good air movement auscultated. ABD: soft, non-tender, non-distended, no rebound or guarding, +BS EXTREMITY: RP and DP palpable 2+ bilat, no LE swelling or edema, extremities are warm and well-perfused NEURO: CN 2-12 grossly intact, no gross focal deficits. MUSC: 5/5 strength throughout, no gross focal deficits SKIN: warm and dry Laboratory Results: 12/28/17 05:48 12/28/17 05:48 Test 12/27/17 15:13 12/27/17 21:12 12/28/17 05:48 Immature Granulocyte % (Auto) 0.5 % White Blood Count 14.75 K/uL (4.8-10.8) Red Blood Count 4.16 M/uL (4.7-6.1) 3.73 M/uL (4.7-6.1) Hemoglobin 13.4 g/dL (14.0-18.0) Hematocrit 37.5 % (42-52) Mean Corpuscular Volume 90.1 fL (80-100) 91.2 fL (80-100) Mean Corpuscular Hemoglobin 32.2 pg (25-34) 31.9 pg (25-34) Mean Corpuscular Hemoglobin Concent 35.7 g/dl (32-36) 35.0 g/dl (32-36) Platelet Count 223 K/uL (130-400) Mean Platelet Volume 9.6 fL (7.4-10.4) 9.0 fL (7.4-10.4) Neutrophils (%) (Auto) 83.1 % Lymphocytes (%) (Auto) 7.7 % Monocytes (%) (Auto) 8.4 % Eosinophils (%) (Auto) 0.1 % Basophils (%) (Auto) 0.2 % Neutrophils # (Auto) 12.26 K/uL (1.4-6.5) Lymphocytes # (Auto) 1.14 K/uL (1.2-3.4) Monocytes # (Auto) 1.24 K/uL (0.11-0.59) Eosinophils # (Auto) 0.01 K/uL (0-0.5) Basophils # (Auto) 0.03 K/uL (0-0.2) Immature Granulocyte # (Auto) 0.07 K/uL (0.00-0.02) D-Dimer 1530 ug/L FEU (0-500) Total Creatine Kinase 46 U/L (39-308) Creatine Kinase MB < 0.5 ng/ml (0.5-3.6) Creatine Kinase MB Ratio (0-3.0) Pro-B-Type Natriuretic Peptide 1147 pg/ml (0-900) Procalcitonin 0.11 ng/ml (0-0.5) Prothrombin Time 13.1 SECONDS (9.0-12.0) Prothromb Time International Ratio 1.3 (0.9-1.1) Troponin I < 0.015 ng/ml (0-0.045) RDW Standard Deviation 45.2 fL (36.4-46.3) RDW Coefficient of Variation 13.7 % (11.5-14.5) Anion Gap 9.0 mmol/L (3-11) Est Creatinine Clear Calc Drug Dose 77.3 ml/min Estimated GFR () 76.7 Estimated GFR (Non- 66.2 BUN/Creatinine Ratio 14.1 (10-20) Lactic Acid Level 1.6 mmol/L (0.4-2.0) Calcium Level 8.9 mg/dl (8.5-10.1) Magnesium Level 1.9 mg/dl (1.8-2.4) Date/Time Source Procedure Growth Status 12/27/17 21:21 Blood Blood Culture Pending Received Last 24 Hours Test 12/27/17 15:13 12/27/17 21:12 12/28/17 05:48 White Blood Count 14.75 K/uL 10.73 K/uL Red Blood Count 4.16 M/uL 3.73 M/uL Hemoglobin 13.4 g/dL 11.9 g/dL Hematocrit 37.5 % 34.0 % Mean Corpuscular Volume 90.1 fL 91.2 fL Mean Corpuscular Hemoglobin 32.2 pg 31.9 pg Mean Corpuscular Hemoglobin Concent 35.7 g/dl 35.0 g/dl Platelet Count 223 K/uL 195 K/uL Mean Platelet Volume 9.6 fL 9.0 fL Neutrophils (%) (Auto) 83.1 % Lymphocytes (%) (Auto) 7.7 % Monocytes (%) (Auto) 8.4 % Eosinophils (%) (Auto) 0.1 % Basophils (%) (Auto) 0.2 % Neutrophils # (Auto) 12.26 K/uL Lymphocytes # (Auto) 1.14 K/uL Monocytes # (Auto) 1.24 K/uL Eosinophils # (Auto) 0.01 K/uL Basophils # (Auto) 0.03 K/uL RDW Standard Deviation 44.3 fL 45.2 fL RDW Coefficient of Variation 13.6 % 13.7 % Immature Granulocyte % (Auto) 0.5 % Immature Granulocyte # (Auto) 0.07 K/uL D-Dimer 1530 ug/L FEU Sodium Level 132 mmol/L 135 mmol/L Potassium Level 3.1 mmol/L 3.4 mmol/L Chloride Level 92 mmol/L 99 mmol/L Carbon Dioxide Level 28 mmol/L 28 mmol/L Anion Gap 12.0 mmol/L 9.0 mmol/L Blood Urea Nitrogen 16 mg/dl 16 mg/dl Creatinine 1.37 mg/dl 1.12 mg/dl Estimated GFR () 60.1 76.7 Estimated GFR (Non- 51.9 66.2 BUN/Creatinine Ratio 11.9 14.1 Random Glucose 162 mg/dl 133 mg/dl Calcium Level 9.4 mg/dl 8.9 mg/dl Total Creatine Kinase 46 U/L Creatine Kinase MB < 0.5 ng/ml Creatine Kinase MB Ratio Troponin I < 0.015 ng/ml < 0.015 ng/ml Pro-B-Type Natriuretic Peptide 1147 pg/ml Procalcitonin 0.11 ng/ml Prothrombin Time 13.1 SECONDS Prothromb Time International Ratio 1.3 Lactic Acid Level 2.2 mmol/L 1.6 mmol/L Est Creatinine Clear Calc Drug Dose 77.3 ml/min Magnesium Level 1.9 mg/dl Date/Time Source Procedure Growth Status 12/27/17 21:21 Blood Blood Culture Pending Received 12/27/17 21:13 Blood Blood Culture Pending Received Assessment & Plan 72-year-old man admitted for treatment of pneumonia. Patient denies fevers, chills, breathing issues and is not on supplemental oxygen this morning. He reports overall clinical improvement since yesterday. He denies any sick contacts or recent travel history. He is tolerating p.o. He reports ambulating without assistance device at baseline 1. Immune acquired bilateral pneumonia-leukocytosis has resolved with antibiotics. Continue Rocephin and azithromycin pending blood and sputum cultures. Lactate resolved to normal. 2. Chronic diastolic CHF-compensated. Follows with Dr. Payan in clinic. Repeat echo reveals EF 50-55% with grade 2 diastolic dysfunction. Continue Lasix 40 mg p.o. daily 3. CAD status post CABG and PCI-stable continue medical management with aspirin 81, atenolol 50 every afternoon, 100 2 AM, Crestor 40 nightly, Ranexa ER 500 p.o. twice daily. Of note patient has history of stable angina which is unchanged. Of note patient had a negative serial troponin, and EKG revealing sinus rhythm at 81 bpm, telemetry review overnight revealed sinus rhythm rhythm in the 70s. 4. Gout-continue allopurinol for chronic prophylaxis. 5. History of bladder cancer-follows with urology for annual maintenance cystoscopy 6. Anxiety-stable. Xanax as needed 7. Chronic muscular skeletal pain-[place] as needed 8. Pulmonary [id number] chest CT in 3-4 months recommended as outpatient DVT prophylaxis- heparin Full code Disposition to home in next 1-2 days Мария Russ DO [facility] hospitalist Current Inpatient Medications: Current Inpatient Medications Medications (Trade) Dose Ordered Sig/Janine Route Start Time Stop Time Status Last Admin Dose Admin Ioversol (Optiray 320) 111 ml UD PRN IV 12/27/17 16:30 12/31/17 16:29 Heparin Sodium (Porcine) (Heparin Sq 5000 Unit/0.5ml) 5,000 unit Q8 SQ 12/27/17 22:00 01/26/18 21:59 12/28/17 05:47 5,000 UNIT Acetaminophen (Tylenol Tab) 650 mg Q4H PRN PO 12/27/17 18:30 01/26/18 18:29 Al Hydrox/Mg Hydrox/Simethicone (Maalox Max Susp) 15 ml Q4H PRN PO 12/27/17 18:30 01/26/18 18:29 Ondansetron HCl (Zofran Inj) 4 mg Q6H PRN IV 12/27/17 18:30 01/26/18 18:29 Polyethylene (Miralax Powder Packet) 17 gm DAILY PRN PO 12/27/17 18:30 01/26/18 18:29 Ceftriaxone Sodium 2000 mg/ Dextrose 70 ml @ 100 mls/hr Q24H IV 12/27/17 20:00 01/03/18 19:59 12/27/17 20:11 100 MLS/HR Azithromycin 500 mg/Dextrose 255 ml @ 250 mls/hr Q24H IV 12/27/17 21:00 01/01/18 20:59 12/27/17 20:13 250 MLS/HR Albuterol/ Ipratropium (Duoneb) 3 ml Q4R PRN INH 12/27/17 18:30 01/26/18 18:29 Allopurinol (Zyloprim Tab) 300 mg DAILY PO 12/28/17 09:00 01/27/18 08:59 12/28/17 07:56 300 MG Alprazolam (Xanax Tab) 0.5 mg TID PRN PO 12/27/17 19:00 01/26/18 18:59 Aspirin (Ecotrin Tab) 81 mg DAILY PO 12/28/17 09:00 01/27/18 08:59 12/28/17 07:57 81 MG Atenolol (Tenormin Tab) 50 mg PM PO 12/27/17 21:00 01/26/18 20:59 Atenolol (Tenormin Tab) 100 mg QAM PO 12/28/17 09:00 01/27/18 08:59 12/28/17 07:56 100 MG Furosemide (Lasix Tab) 40 mg DAILY PO 12/28/17 09:00 01/27/18 08:59 12/28/17 07:56 40 MG Acetaminophen/ Hydrocodone Bitart ([place] 5/325 Tab) 1 tab Q6H PRN PO 12/27/17 19:00 01/10/18 18:59 Loratadine (Claritin Tab) 10 mg DAILY PRN PO 12/27/17 19:00 01/26/18 18:59 Potassium Chloride (Klor-Con M10) 10 meq BID PO 12/28/17 09:00 01/27/18 08:59 12/28/17 07:57 10 MEQ Ranolazine (Ranexa ER Tab) 500 mg BID PO 12/27/17 21:00 01/26/18 20:59 12/28/17 07:57 500 MG Rosuvastatin Calcium (Crestor Tab) 40 mg HS PO 12/27/17 21:00 01/26/18 20:59 12/27/17 20:16 40 MG Cholecalciferol (Vitamin D Tab) 2,000 inter.unit HS PO 12/27/17 21:00 01/26/18 20:59 12/27/17 20:16 2,000 INTER.UNIT Pantoprazole Sodium (Protonix Tab) 40 mg QAM PO 12/28/17 09:00 01/27/18 08:59 12/28/17 07:55 40 MG Guaifenesin (Mucinex Contr Rel Tab) 600 mg Q12 PRN PO 12/27/17 19:00 01/26/18 18:59
[2017-12-28] MEDS: CEFTRIAXONE SOD INJ 2,000 MG in DEXTROSE 5% 50ML 50 ML IV SCH (20:20)
[2017-12-28] MEDS: ROSUVASTATIN CALCIUM 20 MG TAB PO SCH (20:23)
[2017-12-28] MEDS: CHOLECALCIFEROL 1000 INTER.UNIT TAB PO SCH (20:23)
[2017-12-28] MEDS: AZITHROMYCIN IV 500 MG in DEXTROSE 5% 250ML 250 ML IV SCH (21:22)
[2017-12-29] MEDS: HEPARIN SOD 5000 UNIT/0.5 ML CARP SQ SCH ×2 (06:27→13:50)
[2017-12-29 07:17] VITALS: BP 105/55; PULSE 75; TEMP 37.5; O2SAT 90
[2017-12-29] MEDS: RANOLAZINE 500 MG ER TAB PO SCH (07:52)
[2017-12-29] MEDS: PANTOprazole SOD 40 MG TAB PO SCH (07:52)
[2017-12-29] MEDS: FUROSEMIDE 40 MG TAB PO SCH (07:52)
[2017-12-29] MEDS: ASPIRIN 81 MG ECTAB PO SCH (07:52)
[2017-12-29] MEDS: POTASSIUM CHLORIDE 10 MEQ TABCR PO SCH (07:52)
[2017-12-29] MEDS: ALLOPURINOL 300 MG TAB PO SCH (07:53)
[2017-12-29] MEDS ORDERED: METO2.5T PO (14:51)
[2017-12-29] MEDS ORDERED: LEVO-18 PO (14:51)
--- NOTE | 2017-12-29 15:02 | Discharge Summary ---
Discharge Summary Date of Service Dec 29, 2017. Discharge Summary Admission Date: Dec 27, 2017 at 18:13 Discharge Date: Dec 29, 2017 Discharge Disposition: Home Principal Diagnosis: CAP Procedures: TTE Pending Studies/Follow-Up: see instructions below Medication Reconciliation New Medications: Levofloxacin (Levaquin) 750 Mg Tab 750 MG PO DAILY for 5 Days, #5 TAB Changed Medications: Metolazone (Zaroxolyn) 2.5 Mg Tab 2.5 MG PO WK for 90 Days, #12 TAB (Changed from: Black) Take one every Wednesday Continued Medications: Allopurinol (Allopurinol) 300 Mg Tab 1 TAB PO DAILY Alprazolam (Xanax) 0.5 Mg Tab 1 TAB PO TID PRN for Anxiety/Insomnia for 30 Days, #90 TAB Aspirin (Aspir-81) 81 Mg Tab 1 TAB PO DAILY for 90 Days, #90 TAB 3 Refills Atenolol (Tenormin) 50 Mg Tab 1 TAB PO PM Atenolol (Tenormin) 50 Mg Tab 100 MG PO QAM, TAB Cholecalciferol (D3 2000) 2,000 Unit Tab 1 TAB PO HS Coenzyme Q10 (Ubidecarenone) (Coq-10) 30 Mg Cap 120 MG PO DAILY Furosemide (Lasix) 40 Mg Tab 40 MG PO DAILY, 0 Refills Hydrocodone/Acetaminophen 5MG/325MG ([place] 5MG/325MG) Tab 1 TABLET PO Q6H PRN for Pain, TAB Loratadine (Claritin) 10 Mg Tab 10 MG PO DAILY PRN for Seasonal Allergies, TAB Omeprazole (Prilosec) 20 Mg Cap 20 MG PO DAILY, CAP Potassium Chloride (Micro-K Ext Rel) 10 Meq Capcr 10 MEQ PO BID, 0 Refills Ranolazine (Ranexa) 500 Mg Tabcr 1 TAB PO BID Rosuvastatin Calcium (Crestor) 40 Mg Tab 40 MG PO HS, TAB Sildenafil Citrate (Viagra) 100 Mg Tab 100 MG PO PRN, TAB Discontinued Medications: Dextromethorphan-Guaifenesin (Mucinex Dm) 1 Tab Tab 1 TAB PO Q12 PRN for Cough for 10 Days, #20 TAB Admission Information HPI (per Admitting provider): Patient is a 72-year-old male with the PMH of mixed systolic and diastolic CHF, CAD (CABG in , stents in '00), stable angina, h/o bladder cancer and other medical problems listed below who presents with worsening SOB 2 weeks. Patient is normally able to climb a flight of stairs without becoming SOB but has been unable to do that over the past few weeks. Endorses low-grade fever, chills and productive cough with green sputum over the past few days. Feels fatigued and endorses orthopnea. Denies weight gain, PND or LE swelling. Does not require home O2. Has been taking all medications as prescribed. Has been experiencing intermittent left-sided chest pain with exertion that is relieved with rest. States that this pain is no different than bouts of stable angina experienced in the past. Currently denies fever, chills, lightheadedness, headache, near syncope, visual changes, chest pain, palpitations, abdominal pain , nausea, vomiting, bowel or bladder changes or LE swelling. Physical Exam (per Admitting): General Appearance: WD/WN, no apparent distress Head: normocephalic, atraumatic Eyes: normal inspection, PERRL, sclerae normal ENT: normal ENT inspection, hearing grossly normal, pharynx normal (dry mucous membranes ), + nasal congestion Neck: supple, thyroid normal, no JVD, trachea midline Respiratory/Chest: chest non-tender, no respiratory distress, no accessory muscle use, + crackles (bibasilar crackles. No wheezing or rhonchi ), + pertinent finding (Normal O2 saturation on room air ) Cardiovascular: regular rate, rhythm, no murmur, normal peripheral pulses, + pertinent finding (Trace BLE edema) Abdomen/GI: non tender, soft, no organomegaly Back: normal inspection Extremities/Musculoskelatal: normal inspection, no calf tenderness, no pedal edema Neurologic/Psych: no motor/sensory deficits, alert, normal mood/affect, oriented x 3 Skin: normal color, warm/dry Hospital Course 72-year-old man admitted for treatment of pneumonia. Patient denies fevers, chills, breathing issues and is not on supplemental oxygen this morning. He reports overall clinical improvement since yesterday. He denies any sick contacts or recent travel history. He is tolerating p.o. He reports ambulating without assistance device at baseline 1. Immune acquired bilateral pneumonia-leukocytosis has resolved with antibiotics. Continue Rocephin and azithromycin pending blood and sputum cultures. Lactate resolved to normal. 2. Chronic diastolic CHF-compensated. Follows with Dr. Payan in clinic. Repeat echo reveals EF 50-55% with grade 2 diastolic dysfunction. Continue Lasix 40 mg p.o. daily 3. CAD status post CABG and PCI-stable continue medical management with aspirin 81, atenolol 50 every afternoon, 100 2 AM, Crestor 40 nightly, Ranexa ER 500 p.o. twice daily. Of note patient has history of stable angina which is unchanged. Of note patient had a negative serial troponin, and EKG revealing sinus rhythm at 81 bpm, telemetry review overnight revealed sinus rhythm rhythm in the 70s. 4. Gout-continue allopurinol for chronic prophylaxis. 5. History of bladder cancer-follows with urology for annual maintenance cystoscopy 6. Anxiety-stable. Xanax as needed 7. Chronic muscular skeletal pain-[place] as needed 8. Pulmonary [id number] chest CT in 3-4 months recommended as outpatient DVT prophylaxis- heparin Full code Disposition to home in next 1-2 days Мария Russ DO [facility] hospitalist Total time spent on discharge = 60 minutes This includes examination of the patient, discharge planning, medication reconciliation, and communication with other providers. [place] [address] Discharge Medical Patient Name: Yinka Verdin Unit Number: [id number] Date of : 1945 Patient Status: Admitted Inpatient Attending Doctor: Мария Russ DO DI: Medical v5 Discharge Instructions Date of Service Dec 29, 2017. Admission Reason for Admission: Bilateral Pneumonia Discharge Discharge Diagnosis / Problem: CAP Discharge Goals Goal(s): Prevent Disease Progression Activity Recommendations Activity Limitations: per Instructions/Follow-up section . Instructions / Follow-Up Instructions / Follow-Up Please take all medications as instructed on discharge list. It is recommended that you get a repeat chest x-ray within 4-6 weeks to ensure complete resolution of pneumonia. This can be ordered by your primary care physician. The CT scan you underwent in the hospital revealed a nodular focus of consolidative change at the right lung base measuring up to 1.4 cm. A follow-up chest CT in 3-4 months is recommended to document resolution. This can be ordered by your primary care physician. You have a follow-up appointment with Dr. Arroyo on 01/05 @ 11:05am for follow-up from this hospitalization. It was a pleasure taking care of you! Call if you have any questions or problems. You can reach a [facility] hospitalist on duty at [facility] 24 hours a day by calling [phone]. Take care of yourself. Мария Russ DO [facility] Hospitalist Current Hospital Diet Patient's current hospital diet: AHA Diet (Heart Healthy) Discharge Diet Recommended Diet: AHA Diet (Heart Healthy) Procedures Procedures Performed: TTE Pending Studies Studies pending at discharge: yes List of pending studies: preliminary blood cultures are negative with final reading pending at discharge. Medical Emergencies . Who to Call and When: Medical Emergencies: If at any time you feel your situation is an emergency, please call 911 immediately. . Non-Emergent Contact Non-Emergency issues call your: Primary Care Provider . . "Provider Documentation" section prepared by Мария Russ. . Additional Copies To Hernando Arroyo D.O.
[2017-12-29 15:09] VITALS: BP 105/55; PULSE 75; TEMP 37.5; O2SAT 90
[2017-12-29] MEDS ORDERED: AZITHROMYCIN 250 MG TAB PO SCH (18:00)
== END 2017-12-29 15:25 | disposition home or self-care (01) | DRG 194 ==
LOC: C.EDB 14:39 → C.2E 18:13 → ENRESERV 18:22 → EDBEDREQ 18:36 → ENRESERV 12-28 11:27 → C.MS2W 12-28 13:18
PROVIDERS: ADMIT Internal Medicine; ATTEND Hospitalist
DX: J18.9 Pneumonia, unspecified organism (principal); I50.32 Chronic diastolic (congestive) heart failure; E87.6 Hypokalemia; Z88.2 Allergy status to sulfonamides; Z95.818 Presence of other cardiac implants and grafts; Z79.82 Long term (current) use of aspirin; R09.02 Hypoxemia; Z85.51 Personal history of malignant neoplasm of bladder; R91.1 Solitary pulmonary nodule; E78.5 Hyperlipidemia, unspecified; M19.90 Unspecified osteoarthritis, unspecified site; Z87.891 Personal history of nicotine dependence; I25.10 Atherosclerotic heart disease of native coronary artery without angina pectoris; M10.9 Gout, unspecified

== ENCOUNTER 2018-01-11 11:55 | Inpatient (IN) | payer OTHER ==
[2018-01-11] VITALS (8 sets, daily range): BP systolic 106–164; BP diastolic 62–89; PULSE 55–90; TEMP 36.6–36.8; O2SAT 93–96; Ht 177.8 cm; Wt 100.5 kg
[~2018-01-11] VITALS: Ht 177.8 cm; Wt 100.5 kg
[~2018-01-11 11:55] MED LIST changes: +ALPR0.5T PO; -ASPEC81 PO; +ASPI-232 PO; -ATEN-175 PO; +ATEN50TA PO; +CHOL1TAB79 PO; +CLR10 PO; +COEN30CA8 PO; -CRS20 PO; +HYDR-5688 PO; -LRTUNK PO; -LVT/20 PO; +METO2.5T PO; +OMEP20CA9 PO; -OMEP40CA PO; +ROSU40TA PO; +SILD100T PO; -XNX25 PO
[2018-01-11] MEDS ORDERED: ICU PROTOCOL FOR HYPERGLYCEMIA PRN (17:15)
[2018-01-11] MEDS ORDERED: FUROSEMIDE INJ 40 MG in SYRINGE 0 ML IV ONE (17:15)
--- NOTE | 2018-01-11 17:20 | History and Physical ---
History & Physical Date & Time of Service: Jan 11, 2018 at 17:19 Chief Complaint: Pneumonia W/ Hypoxia Primary Care Physician: Hernando Arroyo D.O. History of Present Illness Source: patient 72 year old M who was recently [facility] was treated for pneumonia with also echocardiogram of grade 2 diastolic dysfunction and discharged with oral antibiotic and patient reports that was was doing and finished antibiotic course when he became very short of breath. Patient then admitted to [facility] on 01/05/18 in the ICU setting for acute respiratory failure with hypoxia. Patient had echocardiogram there that also showed grade diastolic dysfunction. Patient was treated for acute on chronic congestive heart failure and also received antibiotics at [facility] for pneumonia coverage. Apparently the patient's oxygen requirements recently increased to need high flow nasal cannula and [facility] hospitalist was contacted to accept the patient to the ICU for additional pulmonary support services. [facility] hospitalist accepted the patient the ICU at [facility]. [facility] management of the patient. Patient seen and examined in the ICU and did not appear to be in acute respiratory distress and is on regular nasal cannula. The patient speaks comfortably and reports that he does not use oxygen at baseline. Lung exam significant for some crackles. Patient has some bilateral lower extremity edema. Patient agrees to further care in the [facility] ICU for now. Past Medical/Surgical History Medical Problems: (1) Acute respiratory failure with hypoxia (2) Anxiety (3) Bilateral pneumonia (4) CAD (coronary artery disease) (5) Gout (6) H/O carcinoma of bladder (7) HLD (hyperlipidemia) (8) Left carotid stenosis (9) Osteoarthritis (10) Systolic and diastolic CHF, chronic Surgical Problems: (1) H/O heart artery stent Family History Diabetes mellitus FH: heart disease Social History Smoking Status: Former Smoker Marital Status: Housing status: lives with significant other Occupational Status: retired Immunizations History of Tetanus Vaccine?: 2004 History of Pneumococcal: 2002 History of Hepatitis B Vaccine: No Allergies Coded Allergies: Sulfa Antibiotics (Verified Allergy, Unknown, ., 12/27/17) Home Medications Scheduled Allopurinol (Allopurinol), 1 TAB PO DAILY Aspirin (Aspir-81), 1 TAB PO DAILY Atenolol (Tenormin), 1 TAB PO PM Atenolol (Tenormin), 100 MG PO QAM Cholecalciferol (D3 2000), 1 TAB PO HS Coenzyme Q10 (Ubidecarenone) (Coq-10), 120 MG PO DAILY Furosemide (Lasix), 40 MG PO DAILY Metolazone (Zaroxolyn), 2.5 MG PO WK Omeprazole (Prilosec), 20 MG PO DAILY Potassium Chloride (Micro-K Ext Rel), 10 MEQ PO BID Ranolazine (Ranexa), 1 TAB PO BID Rosuvastatin Calcium (Crestor), 40 MG PO HS Sildenafil Citrate (Viagra), 100 MG PO PRN Scheduled PRN Alprazolam (Xanax), 1 TAB PO TID PRN for Anxiety/Insomnia Hydrocodone/Acetaminophen 5MG/325MG ([place] 5MG/325MG), 1 TABLET PO Q6H PRN for Pain Loratadine (Claritin), 10 MG PO DAILY PRN for Seasonal Allergies Review of Systems Constitutional: No fever Eyes: No worsening of vision, No eye pain, No redness, No discharge, No diplopia, No problem reported ENT: No hearing loss, No unusual epistaxis, No nasal symptoms, No sore throat, No tinnitus, No dental problems, No trouble swallowing, No problem reported Respiratory: + shortness of breath, No cough, No sputum, No wheezing, No hemoptysis Cardiovascular: + edema, No chest pain, No orthopnea, No PND, No claudication, No palpitations, No problem reported Abdomen: No pain, No nausea, No vomiting, No diarrhea, No constipation, No GI bleeding, No problem reported Genitourinary - Male: No hematuria, No dysuria, No urinary frequency, No urinary urgency, No urinary hesitancy, No urinary retention, No urinary incontinence, No penile discharge, No lesions, No impotence, No problem reported Neurologic: No memory loss, No paralysis, No weakness, No numbness/tingling, No vertigo, No balance problems, No problem reported Endocrine: No fatigue, No excessive thirst, No excessive urination, No problem reported Hematologic / Lymphatic: No abnormal bleeding/bruising, No clotting problems, No swollen lymph nodes, No night sweats, No problem reported Integumentary: No rash, No itch, No new/changing skin lesions, No color change , No bleeding, No problem reported Physical Exam Vital Signs Date Time Temp Pulse Resp B/P (MAP) Pulse Ox O2 Delivery O2 Flow Rate FiO2 01/11/18 16:45 36.8 90 18 164/73 93 Nasal Cannula 4.0 General Appearance: no apparent distress Head: normocephalic, atraumatic Eyes: normal inspection, EOMI, sclerae normal ENT: normal ENT inspection, hearing grossly normal, pharynx normal Neck: supple, no JVD, trachea midline Respiratory/Chest: chest non-tender, lungs clear, no respiratory distress, no accessory muscle use, + crackles Cardiovascular: regular rate, rhythm, no JVD, normal peripheral pulses, + pertinent finding (bilateral 1+ lower extremity edema of lower extremities) Abdomen/GI: normal bowel sounds, non tender, soft Back: normal inspection, no muscle spasm, normal range of motion Extremities/Musculoskelatal: normal inspection, no calf tenderness, non-tender , + pedal edema, + swelling (bilateral 1+ edema of lower extremities) Neurologic/Psych: alert, normal mood/affect, oriented x 3 Skin: normal color, warm/dry, no rash Diagnostics Laboratory Results Results Past 24 Hours Test 01/11/18 16:49 Range/Units Microbiology Results 01/11/18 MRSA DNA Surveillance Screen, Received Pending Impression Assessment and Plan 72 year old M who was recently discharged from [facility] on 12/29/17 under [facility] hospitalist group after he was treated for pneumonia with also echocardiogram of grade 2 diastolic dysfunction and discharged with oral antibiotic and transferred for [facility] for worsening acute respiratory failure and transferred to the ICU of [facility] and is being acutely treated for likely CHF exacerbation currently on nasal cannula grade 2 diastolic dysfunction on recent echocardiograms ICU physician to repeat echocardiogram ICU physician has ordered IV diuretics because patient has already been treated with multiple antibiotic for pneumonia coverage, agree with ICU physician that antibiotics is not needed at this time patient has smoking history in the past and a known Right lower lobe nodule in the superior segment measuring approximately less than a centimeter. Cardiac history of CAD with CABG and PCI -aspirin, atenolol, statin DVT ppx heparin Full Code family: Kristyn [phone], Advanced Directives Existing Living Will: No Existing Power of General Handling Supervisor: No Resuscitation Status VTE Prophylaxis Will order VTE Prophylaxis: Yes
--- NOTE | 2018-01-11 17:24 | Critical Care Consultation ---
Critical Care Consultation Date of Consultation: Jan 11, 2018. Attending Physician: Gee Vasquez MD. Reason for Consultation: Acute respiratory failure. History of Present Illness Dear Dr. Vasquez: Thank you for your kind referral Mr. Verdin to critical care service. This is 72-year-old gentleman with a history of coronary artery disease, status post CABG in 1993, two-vessel disease, the patient has been in his usual status of health, has not had a history of pneumonia ever, he quit smoking back in 1993, he does have a history of bladder CA, history of hypertension, unclear to me if the patient has history of daily alcohol drinking, the patient was seen in our institution and admitted on December 27, 2017 with diagnosis of pneumonia and treated with broad-spectrum antibiotics. The patient was discharged on Levaquin which he took the pill for 5 days according to him. Afterward the patient started having increasing shortness of breath accompanied with persistent cough nonproductive. No hemoptysis was reported. The patient noted increased swelling in his lower extremities. The patient was seen at [facility] [place]. And he was admitted on January 05, 2018. The diagnosis was incomplete treatment of pneumonia and he was started empirically on Vanco and Zosyn. Solu-Medrol was added due to persistent shortness of breath. The patient oxygen requirement has increased over the past few days to the point that they Place the patient on high flow oxygen. Due to the lack of pulmonary service at that institution they decided to transfer the patient to our institution. I have discussed the case with Dr. Romero and accepted the patient in the ICU. Patient was transferred to us for further management. When the patient arrived to our institution, he was appeared less short of breath, speaks in full sentences, his O2 saturation be reported at 94% on 4 L. He denies any persistent cough or shortness of breath. He did not require additional high flow oxygen. No fever was reported and his blood pressure was 160/90. He denies any nausea or vomiting, no epigastric pain, he feels that his leg edema has been reduced. No change in bowel movements or urine habits. All his data from the other institution as well as his imaging were reviewed personally. Family History Diabetes mellitus FH: heart disease Social History Smoking Status: Former Smoker Marital Status: Housing Status: lives with significant other Occupation Status: retired Allergies Coded Allergies: Sulfa Antibiotics (Verified Allergy, Unknown, ., 12/27/17) Home Medications Scheduled Allopurinol (Allopurinol), 1 TAB PO DAILY Aspirin (Aspir-81), 1 TAB PO DAILY Atenolol (Tenormin), 1 TAB PO PM Atenolol (Tenormin), 100 MG PO QAM Cholecalciferol (D3 2000), 1 TAB PO HS Coenzyme Q10 (Ubidecarenone) (Coq-10), 120 MG PO DAILY Furosemide (Lasix), 40 MG PO DAILY Metolazone (Zaroxolyn), 2.5 MG PO WK Omeprazole (Prilosec), 20 MG PO DAILY Potassium Chloride (Micro-K Ext Rel), 10 MEQ PO BID Ranolazine (Ranexa), 1 TAB PO BID Rosuvastatin Calcium (Crestor), 40 MG PO HS Sildenafil Citrate (Viagra), 100 MG PO PRN Scheduled PRN Alprazolam (Xanax), 1 TAB PO TID PRN for Anxiety/Insomnia Hydrocodone/Acetaminophen 5MG/325MG ([place] 5MG/325MG), 1 TABLET PO Q6H PRN for Pain Loratadine (Claritin), 10 MG PO DAILY PRN for Seasonal Allergies Current Inpatient Medications Current Inpatient Medications Medications (Trade) Dose Ordered Sig/Janine Route Start Time Stop Time Status Last Admin Dose Admin Furosemide 40 mg/ Syringe 4 ml @ 4 mls/min NOW ONCE IV 01/11/18 17:15 01/11/18 17:16 Allopurinol (Zyloprim Tab) 300 mg DAILY PO 01/12/18 09:00 02/11/18 08:59 Aspirin (Ecotrin Tab) 81 mg QAM PO 01/12/18 09:00 02/11/18 08:59 Atorvastatin Calcium (Lipitor Tab) 40 mg QAM PO 01/12/18 09:00 02/11/18 08:59 Atenolol (Tenormin Tab) 50 mg BID PO 01/11/18 21:00 02/11/18 08:59 UNV Ranolazine (Ranexa ER Tab) 500 mg BID PO 01/11/18 21:00 02/10/18 20:59 UNV Thiamine HCl (Vitamin B-1 Tab) 100 mg QAM PO 01/12/18 09:00 02/11/18 08:59 UNV Folic Acid (Folvite Tab) 1 mg QAM PO 01/12/18 09:00 02/11/18 08:59 UNV Review of Systems Constitutional: No fever, No chills, No sweats, No weight loss, No weakness, No fatigue, No problem reported Eyes: No worsening of vision, No eye pain, No redness, No discharge, No diplopia, No problem reported ENT: No hearing loss, No unusual epistaxis, No nasal symptoms, No sore throat, No tinnitus, No dental problems, No trouble swallowing, No problem reported Respiratory: + cough, + shortness of breath Cardiovascular: No chest pain, No orthopnea, No PND, No edema, No claudication , No palpitations, No problem reported Abdomen: No pain, No nausea, No vomiting, No diarrhea, No constipation, No GI bleeding, No problem reported Musculoskeletal: No joint pain, No muscle pain, No swelling, No calf pain, No problem reported Neurologic: No memory loss, No paralysis, No weakness, No numbness/tingling, No vertigo, No balance problems, No problem reported Psychiatric: No depression symptoms, No anhedonism, No anxiety, No insomnia, No substance abuse, No problem reported Hematologic / Lymphatic: No abnormal bleeding/bruising, No clotting problems, No swollen lymph nodes, No night sweats, No problem reported Physical Exam General Appearance: well-appearing, no apparent distress Eyes: PERRLA, EOMI Neck: trachea midline Respiratory: rales (Bilaterally) Cardiovasular: regular rate/rhythm (Occasional PVCs), normal S1S2, no M/G/R, no murmur Abdomen: non tender, no guarding Lower Extremities: edema (2+ bilaterally) Neuro: alert, oriented x 3, normal motor exam Psychiatric: normal affect Laboratory Results Last 24 Hours Test 01/11/18 16:49 Diagnostic Results All other records from the other institution has been reviewed including labs which showed leukocytosis, stable BUN/creatinine, there is a left shift with no bandemia, no micro-profile to reveal a pathogen, chest x-ray was consistent with CHF. Cardiomegaly and previous sternotomy from CABG. Assessment & Plan 1. CHF with exacerbation. The patient recently had pneumonia and likely had fluid retention. Also treated with steroids which increase the fluid retention. 2. In review of his previous CAT scan, the patient does have multiple fibrotic changes concerning for ongoing developing interstitial lung disease. 3. The patient treated with adequate courses of antibiotics at this point, and the pneumonia likely resolved. 4. Right lower lobe nodule in the superior segment measuring approximately less than a centimeter. 5. The patient had a history of smoking in the past with [id number] history only quit in 1993. 6. Hypertension. 7. CHF treated with Lasix and Zaroxolyn. 8. Possible non-ST elevation [place], cannot be excluded. 9. Bladder CA, I am not sure how far the workup and management is in this patient. Plan: 1. I would hold off on antibiotics. 2. Lasix 40 mg IV every 12 hours. 3. I will hold off on Zaroxolyn. 4. Obtain echocardiogram. Most recent echo showed EF of 55% with pulmonary artery pressure of 53. There is akinetic apex. 5. If the above did not resolve and patient improvement, evaluation for interstitial lung disease with high-resolution CAT scan of the chest. 6. DVT prophylaxis with subcu heparin. 7. If patient troponin returned elevated, I will start the patient on heparin drip instead. 8. Obtain proBNP and pro calcitonin. 9. I will hold off on steroids at this point. 10. CODE STATUS is a full code. 11. Discussed in details with the staff. 12. Critical care time spent with the patient was 45 minutes coordinating the above.
[2018-01-11] MEDS ORDERED: FUROSEMIDE 10 MG/ML 10 ML VIAL ONE (17:32)
[2018-01-11 18:02] LABS: BASO % 0.1 %; BASO ABS # 0.01 K/uL (0-0.2); EOS % 0.1 %; EOS ABS # 0.01 K/uL (0-0.5); HEMATOCRIT 41.2 % (42-52); HEMOGLOBIN 13.5 g/dL (14.0-18.0); IG# 0.13 K/uL (0.00-0.02); LYMPH % 8.1 %; LYMPH ABS # 1.34 K/uL (1.2-3.4); MEAN CELL VOLUME 93.8 fL (80-100); MEAN CORPUSCULAR HEMOGLOBIN 30.8 pg (25-34); MEAN CORPUSCULAR HGB CONC 32.8 g/dl (32-36); MONO % 4.2 %; NEUT % 86.7 %; NEUT ABS # 14.39 K/uL (1.4-6.5); PLATELET COUNT 212 K/uL (130-400); RED CELL DISTRIBUTION WIDTH CV 14.2 % (11.5-14.5); RED CELL DISTRIBUTION WIDTH SD 48.3 fL (36.4-46.3); WHITE BLOOD COUNT 16.58 K/uL (4.8-10.8)
[2018-01-11 18:23] LABS: ALBUMIN 2.4 gm/dl (3.4-5.0); CALCIUM 8.8 mg/dl (8.5-10.1); CREATININE 1.15 mg/dl (0.60-1.40); POTASSIUM 3.6 mmol/L (3.5-5.1)
[2018-01-11 18:25] LABS: TOTAL PROTEIN 8.6 gm/dl (6.4-8.2)
[2018-01-11] MEDS: RANOLAZINE 500 MG ER TAB PO SCH (20:50)
[2018-01-11] MEDS: HEPARIN SOD 5000 UNIT/0.5 ML CARP SQ SCH (20:51)
--- NOTE | 2018-01-11 21:54 | DIAGNOSTIC IMAGING REPORT ---
CHEST ONE VIEW PORTABLE CLINICAL HISTORY: Congestive failure COMPARISON STUDY: 12/27/2017 FINDINGS: The heart remains enlarged. There are postsurgical changes of midline sternotomy. There is diffuse interstitial thickening/edema with progressive right lung airspace opacities underlying emphysema is suspected. There are no significant pleural effusions.[ There is an old right clavicular fracture IMPRESSION: 1. Persistent cardiomegaly and interstitial thickening/edema 2. Progressive right lung airspace opacities 3. Emphysema Electronically signed by: Boris Graves M.D. 01/11/2018 9:53 PM Dictated Date/Time: 01/11/2018 9:51 PM
[2018-01-12] VITALS (32 sets, daily range): BP systolic 97–165; BP diastolic 53–93; PULSE 54–73; TEMP 36.3–36.7; O2SAT 79–98
[2018-01-12 01:13] LABS: CALCIUM 8.7 mg/dl (8.5-10.1); CREATININE 1.07 mg/dl (0.60-1.40); POTASSIUM 3.4 mmol/L (3.5-5.1)
[2018-01-12] MEDS ORDERED: POTASSIUM CHLR 10 MEQ / WTR 10 MEQ in PREMIXED WATER 100 ML IV STA (01:23)
[2018-01-12] MEDS ORDERED: POTASSIUM CHLORIDE 20 MEQ TABCR PO STA (01:23)
[2018-01-12 05:26] LABS: BASO % 0.1 %; BASO ABS # 0.01 K/uL (0-0.2); EOS % 0.1 %; EOS ABS # 0.02 K/uL (0-0.5); HEMATOCRIT 36.3 % (42-52); HEMOGLOBIN 11.7 g/dL (14.0-18.0); IG# 0.16 K/uL (0.00-0.02); LYMPH % 20.5 %; LYMPH ABS # 3.19 K/uL (1.2-3.4); MEAN CELL VOLUME 93.6 fL (80-100); MEAN CORPUSCULAR HEMOGLOBIN 30.2 pg (25-34); MEAN CORPUSCULAR HGB CONC 32.2 g/dl (32-36); MEAN PLATELET VOLUME 9.5 fL (7.4-10.4); MONO % 7.3 %; MONO ABS # 1.14 K/uL (0.11-0.59); NEUT ABS # 11.04 K/uL (1.4-6.5); PLATELET COUNT 192 K/uL (130-400); RED CELL DISTRIBUTION WIDTH CV 14.4 % (11.5-14.5); RED CELL DISTRIBUTION WIDTH SD 48.6 fL (36.4-46.3); WHITE BLOOD COUNT 15.56 K/uL (4.8-10.8)
[2018-01-12 05:55] LABS: ALBUMIN 2.1 gm/dl (3.4-5.0); CALCIUM 8.6 mg/dl (8.5-10.1); CREATININE 1.07 mg/dl (0.60-1.40)
[2018-01-12 06:11] LABS: PHOSPHORUS 3.6 mg/dl (2.5-4.9); TOTAL PROTEIN 7.1 gm/dl (6.4-8.2)
--- NOTE | 2018-01-12 06:32 | Critical Care Progress Note ---
Critical Care Progress Note Date of Service Jan 12, 2018. Critical Care Progress Note I was approached by nursing staff as the patient was having increasing frequency of PVCs. On review of patient's record, he had received intravenous Lasix with significant diuresis overnight. At this point, repeat labs were obtained which demonstrated a potassium of 3.4. Patient was repleted with 10 mg IV and 40 mg orally. He did have some significant improvement of frequent PVCs. We will continue to monitor for any ectopy.
[2018-01-12] MEDS ORDERED: PERFLUTREN LIPID MICROSPHERE (DEFINITY) IV ONE (07:04)
--- NOTE | 2018-01-12 07:13 | Clinical Documentation Query ---
ALEXANDER Bansal : CLINICAL DOCUMENTATION QUERY Patient is a 72 year old male accepted in transfer from outside acute care hospital for likely acute diastolic CHF exacerbation. Noted increased oxygen requirements prompting transfer to [facility]. Shortness of breath reported and noted tachypnea to 28 breaths/minute. Patient currently being provided 5 L/min supplemental O2, noting no oxygen use at baseline. As appropriate, consider documentation as suggested below in order to capture the acuity, severity of illness, and associated risk of mortality associated with this important clinical diagnosis. Thank you. In your clinical opinion is this patient being managed for: ( ) Acute respiratory failure with hypoxia on admission, resolved ( x) Not Agree ( ) Other explanation of clinical findings (Please Explain) ( ) Unable to determine (Please Define) ( ) Need to Discuss The patient arrived still needing oxygen and is therefore still hypoxic The medical record reflects the following clinical findings, treatment, and risk factors. 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 Terms such as "probable", "suspected", "likely", "questionable", "possible", or "still to be ruled out" are acceptable. IF IN AGREEMENT, YOU MUST DOCUMENT ABOVE DIAGNOSTIC STATEMENT IN DAILY PROGRESS NOTES AND DISCHARGE SUMMARY. This document is not part of the patient's record. Thank You, Benedict Hobson, CHASE [id number]
[2018-01-12] MEDS: RANOLAZINE 500 MG ER TAB PO SCH ×2 (07:44→19:59)
[2018-01-12] MEDS: ALLOPURINOL 300 MG TAB PO SCH (07:44)
[2018-01-12] MEDS: ASPIRIN 81 MG ECTAB PO SCH (07:44)
[2018-01-12] MEDS: PANTOprazole SOD 40 MG TAB PO SCH (07:45)
[2018-01-12] MEDS: HEPARIN SOD 5000 UNIT/0.5 ML CARP SQ SCH ×2 (07:46→20:00)
[2018-01-12] MEDS ORDERED: THIAMINE HCL 100 MG TAB PO SCH (09:00)
[2018-01-12] MEDS ORDERED: ATORVASTATIN 40 MG TAB PO SCH (09:00)
[2018-01-12] MEDS ORDERED: FUROSEMIDE 40 MG TAB PO SCH (09:00)
--- NOTE | 2018-01-12 09:21 | ECHOCARDIOGRAM REPORT ---
*NOTICE TO RECEIVING CONSTITUTION PARTY AGENCY This information is strictly Confidential and protected under [place] law. [place] law prohibits you from making any further disclosure of this information unless further disclosure is expressly permitted by the written consent of the person to whom it pertains or is authorized by law. A general authorization for the release of medical or other information is not sufficient for this purpose. Hospital accepts no responsibility if the information is made available to any other person, INCLUDING THE PATIENT. Interpretation Summary * Name: ZINA SHAFER Study Date: 01/12/2018 06:40 AM BP: 122/68 mmHg * Patient Location: .MSICU\S\E110\S\1 HR: 64 * : 1945 (M/d/yy) Gender: Male Height: 71 in * Age: 72 yrs Ethnicity: CA Weight: 220 lb * Ordering Physician: Isaac Dang * Referring Physician: No Doctor, Assigned * Performed By: Gaby Christine RDCS * * Reason For Study: CHF * BSA: 2.2 m2 * -- Conclusions -- * A focused study was performed for reassessment of biventricular systolic function, left ventricular wall motion, pulmonary hypertension, and diastolic indices. Patient had a recent previous full echocardiogram performed at this facility on 12/28/17. * Study was technically difficult and therefore technically limited. * Compared to the prior study dated 12/28/17, the anteroseptal wall motion abnormality is chronic and unchanged. The inferoseptal wall motion abnormality appears worse with hypokinesis to akinesis. There is a subtle decline in the overall left ventricular ejection fraction which is graded to be 50-55% on the prior study and 40-45% on the present study. * Doppler findings do not suggest pulmonary hypertension. Procedure Details * A contrast injection of Definity was performed to improve assessment of LV function. * Contrast was injected into an intravenous site in the left arm. * One vial of Definity ultrasound contrast was diluted in normal saline to a total volume of 10 ml. A total of '1' ml of solution was administered during imaging. * Lot # [id number] of Definity utilized for procedure. * Expiration date JAN 13. * The attending nurse who injected the contrast agent was CHASE CRISTOBAL. Left Ventricle * The left ventricle is normal in size. * There is mild concentric left ventricular hypertrophy. * Left ventricular systolic function is mildly reduced. * Ejection Fraction = 40-45%. * There is a moderate sized septal and anteroseptal wall motion abnormality with hypokinesis to akinesis of the segments. Right Ventricle * The right ventricular chamber size and systolic function are grossly normal on limited visualization. Atria * The left atrium is mildly dilated. Tricuspid Valve * Doppler findings do not suggest pulmonary hypertension. Left Ventricular Diastolic Function * Grade I diastolic dysfunction, (abnormal relaxation pattern). MMode 2D Measurements and Calculations IVSd 1.0 cm IVSs 1.3 cm LVIDd 4.9 cm LVIDs 3.8 cm LVPWd 1.5 cm LVPWs 2.0 cm IVS/LVPW 0.67 FS 22.2 % EDV(Teich) 111.5 ml ESV(Teich) 61.7 ml EF(Teich) 44.7 % EDV(cubed) 115.9 ml ESV(cubed) 54.6 ml EF(cubed) 52.9 % % IVS thick 22.5 % % LVPW thick 30.9 % LV mass(C)d 249.0 grams LV mass(C)dI 113.4 grams/m\S\2 LV mass(C)s 250.9 grams LV mass(C)sI 114.3 grams/m\S\2 SV(Teich) 49.8 ml SI(Teich) 22.7 ml/m\S\2 SV(cubed) 61.3 ml SI(cubed) 27.9 ml/m\S\2 LVAd ap4 37.0 cm\S\2 LVLd ap4 9.6 cm EDV(MOD-sp4) 118.5 ml EDV(sp4-el) 121.3 ml LVAs ap4 23.4 cm\S\2 LVLs ap4 7.9 cm ESV(MOD-sp4) 62.3 ml ESV(sp4-el) 58.7 ml EF(MOD-sp4) 47.4 % EF(sp4-el) 51.6 % LVAd ap2 35.4 cm\S\2 LVLd ap2 9.5 cm EDV(MOD-sp2) 111.8 ml EDV(sp2-el) 111.9 ml LVAs ap2 20.4 cm\S\2 LVLs ap2 7.1 cm ESV(MOD-sp2) 49.7 ml ESV(sp2-el) 49.5 ml EF(MOD-sp2) 55.6 % EF(sp2-el) 55.8 % LVLd %diff -0.39 % EDV(MOD-bp) 114.2 ml LVLs %diff -11.22 % ESV(MOD-bp) 57.4 ml EF(MOD-bp) 49.7 % SV(MOD-sp4) 56.2 ml SI(MOD-sp4) 25.6 ml/m\S\2 SV(MOD-sp2) 62.1 ml SI(MOD-sp2) 28.3 ml/m\S\2 SV(MOD-bp) 56.8 ml SI(MOD-bp) 25.9 ml/m\S\2 SV(sp4-el) 62.6 ml SI(sp4-el) 28.5 ml/m\S\2 SV(sp2-el) 62.4 ml SI(sp2-el) 28.4 ml/m\S\2 Doppler Measurements and Calculations TR max magdalene 230.8 cm/sec
[2018-01-12] MEDS ORDERED: SPIRONOLACTONE 25 MG TAB PO ONE (10:15)
--- NOTE | 2018-01-12 10:33 | Cardiology Consultation ---
Cardiology Consultation Date of Consultation: Jan 12, 2018 History of Present Illness Yinka Verdin is a 72 year old male seen in cardiology consultation per the request of Dr Dang for the evaluation of congestive heart failure, elevation in troponin, with history of chronic coronary heart disease. The patient's primary line patrolman is Dr. Juliano Payan of our practice with him the patient has followed with closely. The patient's recent history dates back to earlier this month when he was hospitalized at [facility] and treated for community-acquired pneumonia. He describes that at that time he had a cough and shortness of breath and he had vague left-sided chest discomfort that was not reminiscent of his prior long standing history of stable exertional angina. His symptoms subsequently improved, but he felt worse at home. He was subsequently readmitted but this time at [facility] in [facility] on 08/14. He was initially treated for additional pneumonia symptoms with antibiotics, inhaled bronchodilators and corticosteroids. He was also determined that he had superimposed congestive heart failure and received diuretic therapy. He was transferred to [facility] yesterday 01/11/18 for pulmonary consultation. At present, the patient is comfortable. He was seen and examined in ICU room 110. Telemetry reveals stable sinus rhythm with occasional PVCs. He denies any chest discomfort. He states that he feels much improved compared to what he felt when he was initially hospitalized in [place]. History Past Medical History: 1. Diffuse atherosclerotic coronary disease, status post coronary bypass -grafting in 1993, receiving a ALONSO graft to LAD, right internal mammary -graft to the right coronary artery. 2. Stenting of the left main in 1999 for progressive angina, with repeat -cardiac catheterization last performed 2009, demonstrating no progressive -disease. 3. Chronic angina pectoris, class II-III. 4. Chronic anxiety. 5. Congestive heart failure, Class 2 mixed systolic, diastolic 6. History of bladder carcinoma initially diagnosed about 6 years ago per the patient for which he typically has an annual cystoscopy 7. History of asymptomatic carotid disease, most recent carotid duplex on file is from June 2016 at which time the right internal carotid artery was noted to have a less than 50% stenosis, the left internal carotid artery had a moderate 50-69% stenosis 8. Dyslipidemia Past Surgical History: 1. Coronary artery bypass grafting, 1983 as outlined above 2. Multiple cardiac catheterizations as outlined above 3. Multiple cystoscopy procedures Social History: The patient is a former cigarette smoker having quit in 1993 He occasionally drinks alcohol, but not on a routine basis Family History: Father with history of heart disease, details unknown, and diabetes Review Of Systems 10 point review of systems is reviewed and is negative with the exception of that above. In addition the patient denies hematuria. Allergies Coded Allergies: Sulfa Antibiotics (Verified Allergy, Unknown, ., 12/27/17) Medications Reported Home Medications Medications Dose Route/Sig Max Daily Dose Days Date Category Dose Instructions Zaroxolyn (Metolazone) 2.5 Mg Tab 2.5 Mg PO WK 90 12/29/17 Rx Take one every Wednesday Viagra (Sildenafil Citrate) 100 Mg Tab 100 Mg PO PRN 12/27/17 Reported D3 2000 (Cholecalciferol) 2,000 Unit Tab 1 Tab PO HS 12/27/17 Reported Prilosec (Omeprazole) 20 Mg Cap 20 Mg PO DAILY 12/27/17 Reported Claritin (Loratadine) 10 Mg Tab 10 Mg PO DAILY PRN 12/27/17 Reported [place] 5MG/325MG (Acetaminophen/Hydrocodone Bitart) Tab 1 Tablet PO Q6H PRN 12/27/17 Reported Xanax (Alprazolam) 0.5 Mg Tab 1 Tab PO TID PRN 30 12/27/17 Reported Crestor (Rosuvastatin Calcium) 40 Mg Tab 40 Mg PO HS 12/27/17 Reported Ranexa (Ranolazine) 500 Mg Tabcr 1 Tab PO BID 12/27/17 Reported Aspir-81 (Aspirin) 81 Mg Tab 1 Tab PO DAILY 90 12/27/17 Reported Allopurinol 300 Mg Tab 1 Tab PO DAILY 12/27/17 Reported Coq-10 (Coenzyme Q10 (Ubidecarenone)) 30 Mg Cap 120 Mg PO DAILY 12/27/17 Reported Tenormin (Atenolol) 50 Mg Tab 100 Mg PO QAM 12/27/17 Reported Tenormin (Atenolol) 50 Mg Tab 1 Tab PO PM 12/27/17 Reported Micro-K Ext Rel (Potassium Chloride) 10 Meq Capcr 10 Meq PO BID 05/19/11 Reported Lasix (Furosemide) 40 Mg Tab 40 Mg PO DAILY 05/19/11 Reported Physical Exam Vital Signs (Last 8hrs): Last 8 Hrs Date Time Temp Pulse Resp B/P (MAP) Pulse Ox O2 Delivery O2 Flow Rate FiO2 01/12/18 08:00 Nasal Cannula 6.0 01/12/18 05:01 55 21 122/68 (86) 94 Nasal Cannula 5.0 01/12/18 04:01 36.3 55 20 125/64 (84) 95 Nasal Cannula 5.0 01/12/18 04:00 93 Nasal Cannula 5.0 01/12/18 03:01 65 23 128/67 (87) 94 Nasal Cannula 5.0 01/12/18 02:01 54 22 118/71 (87) 94 Nasal Cannula 5.0 01/12/18 01:24 54 21 117/61 (79) 96 Nasal Cannula 5.0 01/12/18 01:01 55 20 117/61 (79) 96 Nasal Cannula 5.0 General Appearance: Alert and Oriented x3. NAD. Head: Normocephalic Atraumatic. Eyes: PERRLA, EOMI, conjunctiva and sclera clear Neck: Supple. No carotid bruits noted. No JVD. No HJD. Respiratory: Breath sounds clear to auscultation bilaterally. No w/r/r. Cardiovascular: Reg rate and rhythm. S1 and S2 noted. No murmurs, rubs, gallops. PMI non displace. Abdomen: Normal bowel sounds, soft nontender. no abdominal bruits. Extremities: No edema, no clubbing or cyanosis. distal pulses 2/4 bilaterally. Neuro: No focal deficits. Psychiatric: Normal affect. Data Last Resulted 01/12/18 05:16 Red Blood Count 3.88, Mean Corpuscular Volume 93.6, Mean Corpuscular Hemoglobin 30.2, Mean Corpuscular Hemoglobin Concent 32.2, Mean Platelet Volume 9.5, Neutrophils (%) (Auto) 71.0, Lymphocytes (%) (Auto) 20.5, Monocytes (%) (Auto) 7.3, Eosinophils (%) (Auto) 0.1, Basophils (%) (Auto) 0.1, Neutrophils # (Auto) 11.04, Lymphocytes # (Auto) 3.19, Monocytes # (Auto) 1.14, Eosinophils # (Auto) 0.02, Basophils # (Auto) 0.01 Last Resulted 01/12/18 05:16 Past 24 Hours Test 01/11/18 21:58 01/12/18 05:16 Range/Units Troponin I 0.125 *H 0.122 *H 0-0.045 ng/ml Imaging: EKG performed on presentation to [facility] on 01/11/2018 at 1730 and reviewed independently: Sinus rhythm at 82 bpm, T-wave inversions in leads V1 to V4, suggestive of possible anterior ischemia, compared to the prior tracing dated 12/29/2017, T-wave inversions are more prominent, and a PVC is now present Repeat EKG performed this morning 01/12/2018 at 9:13 AM reveals sinus rhythm at 70 bpm with occasional PVCs, T-wave inversions noted in V1 to V4. Compared to her prior outpatient tracings dating back to 2017 as an outpatient, T-wave inversion was noted in lead V3 V4 at that time, but the new prominent T-wave inversions in V1 and V2 are new. Transthoracic echocardiogram performed this morning 01/12/18 are reviewed independently by the undersigned: There is an anteroseptal wall motion abnormality with hypokinesis to akinesis of the segments and extending to the apex. There is hypokinesis to akinesis of the inferoseptum. Mild left ventricular systolic dysfunction is present with a qualitative ejection fraction of 40-45%. Compared to the prior echocardiogram images performed on 12/28/17 which were reviewed in comparison inferoseptal wall motion appears to be worse and there has been a subtle decline in the ejection fraction. Most recent cardiac catheterization 04/18/[place] [facility] [place] 1. CORONARY ANGIOGRAPHY: ~ A) Left Main that showed a 30% distal~occlusion. ~ B) Small LAD with diffuse disease, but he had a ALONSO graft to the LAD which was widely patent and free of disease. ~ C) Left Circumflex was a moderate-size vessel that gave origin to a first obtuse marginal that had 50% calcification. ~ D) RCA was a moderate-size vessel that had a diffuse mid 30% lesion. ~The right was the dominant system. 2. HEMODYNAMICS: ~ Aortic 116/64. ~LV 108/6. ~LVP 156/21. ~AOP 31/-34. ~ Patient had stable heart rate and blood pressures and normal sinus rhythm throughout the procedure. 3. VENTRICULOGRAM: ~LV not dilated, ejection fraction 45%.~~Mild hypokinesis in the anterior wall and apex.~No mitral regurgitation. Assessment & Plan Impression: 72-year-old male 1. Acute systolic heart failure, mild volume overload, although it appears that this has trended toward improvement with previous diuretic therapy 2. Recent treatment for community acquired pneumonia, improving Discussion/recommendations: The patient does not have any symptoms suggestive of unstable angina at present. At the time of his initial cough illness earlier this month he described left-sided chest discomfort had occurred but it was not reminiscent of his angina. The patient as well as his outpatient records described that he has a long-standing history of class III exertional angina and has been treated medically for several years. His most recent cardiac catheterization was performed in 2009 and at that time his previously placed left main stent was patent. The patient is favored medication therapy rather than repeat cardiac catheterization over the last few years, as per my conversation with his primary line patrolman Dr. Payan today. A nuclear stress test performed in 2012 revealed an anteroseptal infarct pattern with mild norah-infarct ischemia. It does appear that the previously noted septal wall motion abnormality has now extended to include the inferoseptum, and this correlates with the findings of new T-wave inversions on his EKG. The patient does not have symptoms suggestive of an acute intra-coronary plaque rupture, and his troponin elevation is mild and blunted consistent with congestive heart failure. At this time I am going to hold off on systemic anticoagulation with unfractionated heparin will continue DVT prophylaxis dose heparin. Should he have a change in his symptoms or an increase in his troponin , this will be reconsidered. It is a possibility that his recent pneumonia episode has unmasked progression of his underlying coronary artery disease with resultant heart failure and EKG changes consistent with ischemia. At present, I recommend that we continue IV diuretics for now. In addition to furosemide 40 mg 2 times per day I am going to add spironolactone. He does have occasional PVCs. Given his left ventricular systolic dysfunction I am going to transition him from atenolol to metoprolol succinate which is an evidence based beta-mari for systolic heart failure with dose of 50 mg twice daily for now. We will continue his prior metolazone dose of 5 mg every Wednesday. We will continue his chronic treatment with ranolazine. Otherwise patient is to remain on aspirin. He is typically on rosuvastatin 40mg , and therefore will transition him back to that rather than atorvastatin. At present we will continue medication management. I spoke with the patient regarding potential role of repeat cardiac catheterization to see if there is a role in revascularizing him to help prevent future heart failure decompensations. At present the patient would like to think about things and continue with medication treatment. Per discussion with Dr. Payan, this is in line with the patient's chronic previously expressed wishes. And he has done quite well considering his initial coronary artery bypass grafting was performed in his late 40s 24 years ago.
--- NOTE | 2018-01-12 14:23 | Progress Note ---
Progress Note Date of Service Jan 12, 2018. Progress Note Subjective Patient seen and examined at bedside in the ICU. Patient breathing on nasal cannula. Denies worsening shortness of breath Physical exam General; no acute distress Head: Normocephalic Atraumatic. Eyes: EOMI, conjunctiva and sclera clear Neck: Supple.No JVD. Respiratory: No wheezing, fair air entry Cardiovascular: Reg rate and rhythm. S1 and S2 noted. No murmurs, rubs, gallops Abdomen: Normal bowel sounds, soft nontender. no abdominal bruits. Extremities: trace edema of lower extremities Neuro: No focal deficits. 72 year old M who was recently discharged from [facility] on 12/29/17 [facility] after he was treated for pneumonia with also echocardiogram of grade 2 diastolic dysfunction and discharged with oral antibiotic and transferred [facility] for worsening acute [facility] failure [facility]IR[facility]ORY / CARDIAC -Acute respiratory failure with hypoxia secondary to CHF exacerbation -Echocardiogram 01/12/18 There is an anteroseptal wall motion abnormality with hypokinesis to akinesis of the segments and extending to the apex. There is hypokinesis to akinesis of the inferoseptum. Mild left ventricular systolic dysfunction is present with a qualitative ejection fraction of 40-45%. Compared to the prior echocardiogram images performed on 12/28/17 which were reviewed in comparison inferoseptal wall motion appears to be worse and there has been a subtle decline in the ejection fraction. - on IV Lasix for the CHF exacerbation - cardiology service following the patient: "troponin elevation is mild and blunted consistent with congestive heart failure" - cardiology service has added spironolactone, cardiology service has changed atenolol to metoprolol succinate which is an evidence based beta-mari for systolic heart failure with dose of 50 mg twice daily for now, continue prior metolazone dose of 5 mg every Wednesday, continue ranolazine. Other Cardiac history of CAD with CABG and PCI -aspirin, statin, beta mari Previous treatment for Community acquired Pneumonia on [facility] admission -Because patient has already been treated with multiple antibiotic for pneumonia coverage, agree with ICU physician that antibiotics is not needed at this time Patient has smoking history in the past and a known Right lower lobe nodule in the superior segment measuring approximately less than a centimeter. -outpatient follow up -DVT ppx heparin Full Code family: Kristyn [phone],
--- NOTE | 2018-01-12 16:15 | Critical Care Progress Note ---
Critical Care Progress Note Date of Service Jan 12, 2018. Attending Dr. Dang Subjective The patient is feeling better however he continues to have oxygen requirement up to 4 L. His O2 saturation is difficult to measure due to cold periphery. He denies any cough no sputum production. Uneventful night. Objective Physical exam on 01/12/2018 revealed stable vital signs at the moment, positive JVP, S1-S2 regular rate and rhythm with systolic ejection murmur, crackles mainly at the right base greater than left base. Abdomen is benign, edema in the periphery. Echocardiogram was reviewed which showed EF of 45% and inferoseptal dyskinesis that has been worsened from previous echocardiogram. Assessment & Plan 1. Ischemic cardiomyopathy, with decompensation, status post CABG in , the patient had ALONSO to LAD, the patient presented with CHF exacerbation appeared to be systolic, repeated echo showed EF of 40-45% compared to recent echo done 10 days ago which showed EF of 60% according to the records from [facility]. 2. Coronary artery disease status post CABG, appreciate Dr. Soliz input, apparently, the patient has been offered PCI in the past by Dr. Payan and the patient declined. And currently the patient also declining PCI and he would like only conservative management. 3. Recently treated pneumonia with adequate 12 days of broad-spectrum antibiotic. 4. 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 It needs to be addressed later. 5. Occasional PVCs possibly related to diuresis. Plan: 1. I will change Lasix to 40 mg p.o. twice daily. 2. Continue with oxygen. He may need it even at home. 3. Appreciate Dr. Soliz input. 4. Appreciate Dr. Vasquez input. 5. Metoprolol has been adjusted to 50 milligrams twice daily. 6. Patient used to take Zaroxolyn mean once a week, agree with the add on of Aldactone. 7. Steroids were stopped, although the patient might have had a history of COPD but he is not in exacerbation. 8. I will stop thiamine and folic acid. Case discussed on rounds with the staff. Critical care time spent with the patient was 35 minutes. Data Medications: Current Inpatient Medications Medications (Trade) Dose Ordered Sig/Janine Route Start Time Stop Time Status Last Admin Dose Admin Allopurinol (Zyloprim Tab) 300 mg DAILY PO 01/12/18 09:00 5/18/18 08:59 01/12/18 07:44 300 MG Aspirin (Ecotrin Tab) 81 mg QAM PO 01/12/18 09:00 02/11/18 08:59 01/12/18 07:44 81 MG Ranolazine (Ranexa ER Tab) 500 mg BID PO 01/11/18 21:00 02/10/18 20:59 01/12/18 07:44 500 MG Miscellaneous Information (Icu Protocol For Hyperglycemia) 1 ea PRN PRN N/A 01/11/18 17:15 01/13/18 17:14 Heparin Sodium (Porcine) (Heparin Sq 5000 Unit/0.5ml) 5,000 unit Q12 SQ 01/11/18 21:00 02/10/18 20:59 01/12/18 07:46 5,000 UNIT Pantoprazole Sodium (Protonix Tab) 40 mg QAM PO 01/12/18 09:00 02/11/18 08:59 01/12/18 07:45 40 MG Furosemide 40 mg/ Syringe 4 ml @ 4 mls/min BID17 IV 01/12/18 17:00 02/11/18 16:59 Metoprolol Succinate (Toprol Xl Tab) 50 mg BID PO 01/12/18 21:00 02/11/18 20:59 Spironolactone (Aldactone Tab) 25 mg QAM PO 01/13/18 09:00 02/12/18 08:59 Rosuvastatin Calcium (Crestor Tab) 40 mg QAM PO 01/13/18 09:00 02/12/18 08:59 I & O: 24-Hour Column 01/13/18 08:00 Intake Total 750 ml Output Total 500 ml Balance 250 ml Vital Signs: Date Time Temp Pulse Resp B/P (MAP) Pulse Ox O2 Delivery O2 Flow Rate FiO2 01/12/18 14:30 66 26 93 01/12/18 14:01 70 21 111/62 (78) 91 01/12/18 13:30 67 24 93 01/12/18 13:01 71 28 97/65 (76) 96 01/12/18 12:30 70 26 87 01/12/18 12:01 65 24 106/67 (80) 94 01/12/18 11:30 Nasal Cannula 5.0 01/12/18 11:30 72 17 93 01/12/18 11:30 36.4 67 22 105/56 (72) 93 Nasal Cannula 5.0 01/12/18 11:01 24 101/81 (88) 01/12/18 11:00 72 25 79 4 10:01 65 23 105/55 (72) 98 01/12/18 10:00 58 23 94 01/12/18 09:53 36.4 64 22 102/53 (69) 92 Nasal Cannula 5.0 01/12/18 09:01 102/53 (69) 01/12/18 09:00 70 25 86 01/12/18 08:01 67 19 120/69 (86) 89 01/12/18 08:00 36.4 65 22 112/62 (79) 94 Nasal Cannula 6.0 01/12/18 08:00 68 23 91 01/12/18 08:00 Nasal Cannula 6.0 01/12/18 07:01 67 24 112/62 (79) 96 01/12/18 07:00 68 22 01/12/18 05:01 55 21 122/68 (86) 94 Nasal Cannula 5.0 01/12/18 04:01 36.3 55 20 125/64 (84) 95 Nasal Cannula 5.0 01/12/18 04:00 93 Nasal Cannula 5.0 01/12/18 03:01 65 23 128/67 (87) 94 Nasal Cannula 5.0 01/12/18 02:01 54 22 118/71 (87) 94 Nasal Cannula 5.0 01/12/18 01:24 54 21 117/61 (79) 96 Nasal Cannula 5.0 01/12/18 01:01 55 20 117/61 (79) 96 Nasal Cannula 5.0 01/12/18 00:01 36.4 57 20 106/60 (75) 94 Nasal Cannula 5.0 01/11/18 23:59 93 Nasal Cannula 5.0 01/11/18 23:01 55 20 106/62 (77) 96 Nasal Cannula 5.0 01/11/18 21:01 83 28 136/85 (102) 94 Nasal Cannula 5.0 01/11/18 20:01 36.6 79 24 130/89 (103) 96 Nasal Cannula 5.0 01/11/18 20:00 93 Nasal Cannula 5.0 01/11/18 19:01 82 25 136/64 (88) 94 Nasal Cannula 5.0 01/11/18 18:00 81 22 136/64 (88) 94 Room Air 01/11/18 16:45 36.8 90 18 164/73 93 Nasal Cannula 4.0 Laboratory Results: Last 24 Hours Test 01/11/18 17:00 01/11/18 17:15 01/11/18 17:36 01/11/18 21:58 Bedside Glucose 175 mg/dl Urine Color YELLOW Urine Appearance TURBID Urine pH 8.5 Urine Specific [place] 1.015 Urine Protein NEG Urine Glucose (UA) NEG Urine Ketones NEG Urine Occult Blood NEG Urine Nitrite NEG Urine Bilirubin NEG Urine Urobilinogen NEG Urine Leukocyte Esterase NEG Urine WBC (Auto) 1-5 /hpf Urine RBC (Auto) 0-4 /hpf Urine Hyaline Casts (Auto) 1-5 /lpf Urine Epithelial Cells (Auto) 10-20 /lpf Urine Bacteria (Auto) NEG White Blood Count 16.58 K/uL Red Blood Count 4.39 M/uL Hemoglobin 13.5 g/dL Hematocrit 41.2 % Mean Corpuscular Volume 93.8 fL Mean Corpuscular Hemoglobin 30.8 pg Mean Corpuscular Hemoglobin Concent 32.8 g/dl Platelet Count 212 K/uL Mean Platelet Volume 10.0 fL Neutrophils (%) (Auto) 86.7 % Lymphocytes (%) (Auto) 8.1 % Monocytes (%) (Auto) 4.2 % Eosinophils (%) (Auto) 0.1 % Basophils (%) (Auto) 0.1 % Neutrophils # (Auto) 14.39 K/uL Lymphocytes # (Auto) 1.34 K/uL Monocytes # (Auto) 0.70 K/uL Eosinophils # (Auto) 0.01 K/uL Basophils # (Auto) 0.01 K/uL RDW Standard Deviation 48.3 fL RDW Coefficient of Variation 14.2 % Immature Granulocyte % (Auto) 0.8 % Immature Granulocyte # (Auto) 0.13 K/uL Sodium Level 136 mmol/L Potassium Level 3.6 mmol/L Chloride Level 105 mmol/L Carbon Dioxide Level 25 mmol/L Anion Gap 6.0 mmol/L Blood Urea Nitrogen 23 mg/dl Creatinine 1.15 mg/dl Est Creatinine Clear Calc Drug Dose 73.2 ml/min Estimated GFR () 74.3 Estimated GFR (Non- 64.1 BUN/Creatinine Ratio 19.7 Random Glucose 161 mg/dl Calcium Level 8.8 mg/dl Total Bilirubin 0.4 mg/dl Aspartate Amino Transf (AST/SGOT) 64 U/L Alanine Aminotransferase (ALT/SGPT) 86 U/L Alkaline Phosphatase 199 U/L Pro-B-Type Natriuretic Peptide 4346 pg/ml Total Protein 8.6 gm/dl Albumin 2.4 gm/dl Globulin 6.2 gm/dl Albumin/Globulin Ratio 0.4 Procalcitonin 0.20 ng/ml Troponin I 0.125 ng/ml Test 01/12/18 00:07 01/12/18 00:29 01/12/18 05:16 01/12/18 13:57 Bedside Glucose 147 mg/dl Sodium Level 141 mmol/L 140 mmol/L Potassium Level 3.4 mmol/L 4.0 mmol/L Chloride Level 107 mmol/L 108 mmol/L Carbon Dioxide Level 28 mmol/L 29 mmol/L Anion Gap 6.0 mmol/L 3.0 mmol/L Blood Urea Nitrogen 24 mg/dl 25 mg/dl Creatinine 1.07 mg/dl 1.07 mg/dl Est Creatinine Clear Calc Drug Dose 78.7 ml/min 78.7 ml/min Estimated GFR () 81.1 81.1 Estimated GFR (Non- 70.0 70.0 BUN/Creatinine Ratio 22.6 23.6 Random Glucose 150 mg/dl 123 mg/dl Calcium Level 8.7 mg/dl 8.6 mg/dl White Blood Count 15.56 K/uL Red Blood Count 3.88 M/uL Hemoglobin 11.7 g/dL Hematocrit 36.3 % Mean Corpuscular Volume 93.6 fL Mean Corpuscular Hemoglobin 30.2 pg Mean Corpuscular Hemoglobin Concent 32.2 g/dl Platelet Count 192 K/uL Mean Platelet Volume 9.5 fL Neutrophils (%) (Auto) 71.0 % Lymphocytes (%) (Auto) 20.5 % Monocytes (%) (Auto) 7.3 % Eosinophils (%) (Auto) 0.1 % Basophils (%) (Auto) 0.1 % Neutrophils # (Auto) 11.04 K/uL Lymphocytes # (Auto) 3.19 K/uL Monocytes # (Auto) 1.14 K/uL Eosinophils # (Auto) 0.02 K/uL Basophils # (Auto) 0.01 K/uL RDW Standard Deviation 48.6 fL RDW Coefficient of Variation 14.4 % Immature Granulocyte % (Auto) 1.0 % Immature Granulocyte # (Auto) 0.16 K/uL Phosphorus Level 3.6 mg/dl Magnesium Level 3.0 mg/dl Total Bilirubin 0.5 mg/dl Direct Bilirubin 0.1 mg/dl Aspartate Amino Transf (AST/SGOT) 55 U/L Alanine Aminotransferase (ALT/SGPT) 77 U/L Alkaline Phosphatase 149 U/L Troponin I 0.122 ng/ml 0.140 ng/ml Total Protein 7.1 gm/dl Albumin 2.1 gm/dl
[2018-01-12] MEDS: FUROSEMIDE INJ 40 MG in SYRINGE 0 ML IV SCH (17:00)
[2018-01-12] MEDS: METOPROLOL SUCC 50MG EXT REL TAB PO SCH (19:59)
[2018-01-13] VITALS (11 sets, daily range): BP systolic 108–141; BP diastolic 61–91; PULSE 47–78; TEMP 36.4–36.8; O2SAT 90–95
[2018-01-13 05:13] LABS: BASO % 0.2 %; BASO ABS # 0.02 K/uL (0-0.2); EOS ABS # 0.24 K/uL (0-0.5); HEMOGLOBIN 12.9 g/dL (14.0-18.0); IG# 0.27 K/uL (0.00-0.02); LYMPH % 24.1 %; LYMPH ABS # 2.86 K/uL (1.2-3.4); MEAN CELL VOLUME 92.8 fL (80-100); MEAN CORPUSCULAR HEMOGLOBIN 29.9 pg (25-34); MEAN CORPUSCULAR HGB CONC 32.3 g/dl (32-36); MEAN PLATELET VOLUME 9.1 fL (7.4-10.4); MONO % 8.8 %; MONO ABS # 1.04 K/uL (0.11-0.59); NEUT % 62.6 %; NEUT ABS # 7.42 K/uL (1.4-6.5); PLATELET COUNT 189 K/uL (130-400); RED CELL DISTRIBUTION WIDTH CV 14.5 % (11.5-14.5); RED CELL DISTRIBUTION WIDTH SD 49.3 fL (36.4-46.3); WHITE BLOOD COUNT 11.85 K/uL (4.8-10.8)
[2018-01-13 05:38] LABS: ALBUMIN 2.2 gm/dl (3.4-5.0); CALCIUM 8.5 mg/dl (8.5-10.1); CREATININE 1.24 mg/dl (0.60-1.40); POTASSIUM 3.9 mmol/L (3.5-5.1)
[2018-01-13 05:53] LABS: PHOSPHORUS 3.7 mg/dl (2.5-4.9); TOTAL PROTEIN 7.2 gm/dl (6.4-8.2)
--- NOTE | 2018-01-13 07:05 | DIAGNOSTIC IMAGING REPORT ---
CHEST ONE VIEW PORTABLE CLINICAL HISTORY: pna/chf dyspnea COMPARISON STUDY: 01/11/2018 FINDINGS: Unchanging diffuse right hemithoracic infiltrative change. Infiltrative change left base slightly progressive laterally. Mild stable cardiomegaly. IMPRESSION: Stable to slightly progressive parenchymal infiltrative change versus atypical pulmonary edema. The above report was generated using voice recognition software. It may contain grammatical, syntax or spelling errors. Electronically signed by: Magnus Lan M.D. 01/13/2018 7:04 AM Dictated Date/Time: 01/13/2018 7:02 AM
[2018-01-13] MEDS: METOPROLOL SUCC 50MG EXT REL TAB PO SCH ×2 (07:53→20:38)
[2018-01-13] MEDS: ALLOPURINOL 300 MG TAB PO SCH (07:53)
[2018-01-13] MEDS: RANOLAZINE 500 MG ER TAB PO SCH ×2 (07:53→20:38)
[2018-01-13] MEDS: PANTOprazole SOD 40 MG TAB PO SCH (07:54)
[2018-01-13] MEDS: ASPIRIN 81 MG ECTAB PO SCH (07:54)
[2018-01-13] MEDS: SPIRONOLACTONE 25 MG TAB PO SCH (07:55)
[2018-01-13] MEDS: ROSUVASTATIN CALCIUM 20 MG TAB PO SCH (07:55)
[2018-01-13] MEDS: FUROSEMIDE INJ 40 MG in SYRINGE 0 ML IV SCH ×2 (07:56→17:14)
--- NOTE | 2018-01-13 09:50 | Cardiology Follow-Up ---
Subjective General Date of Service: Jan 13, 2018. Chief Complaint: follow up shorteness of breath Pt evaluation today including: conversation w/ patient, physical exam History of Present Illness The patient is a 72 year old male seen in follow up. Patient feeling like he has more energy today. Await repeat EKG. Allergies Coded Allergies: Sulfa Antibiotics (Verified Allergy, Unknown, ., 12/27/17) Social History Smoking Status: Former Smoker Hx Tobacco Use In Past Year?: No Hx Alcohol Use - Type And Amou: Yes (2 cans of beer a day) Hx Substance Use - Type And Am: No Problem List Medical Problems: (1) Bilateral pneumonia Status: Acute Physical Exam Vital Signs Last Vital Signs Documentation Date Time Temp Pulse Resp B/P (MAP) Pulse Ox O2 Delivery O2 Flow Rate FiO2 01/13/18 08:01 36.4 77 26 141/74 (96) 92 Nasal Cannula 5.0 Physical Exam Constitutional: Level of Distress: NAD ENMT: hearing grossly normal Neck: supple Lungs: Auscultation: pertinent finding (mildly decreased BS at bases) Extremities: no edema Neurologic: Gait & Station: pertinent finding (no focal deficits ) Assessment and Plan Assessment and Plan Impression: 72-year-old male 1. Acute systolic heart failure, mild volume overload, although it appears that this has trended toward improvement with previous diuretic therapy 2. Recent treatment for community acquired pneumonia, improving Plan: Continue IV furosemide and aldactone. Continue metoprolol succinate. Continue aspirin, rosuvastatin, ranexa. Mild, blunt troponin elevation consistent with heart failure decompensation, however, has new anteroseptal T wave inversion in lead V2 . Echo reveals chronic anteroseptal WMA, now with extension to inferoseptum worse than earlier this month. Patient has history of complex , early onset aggressive coronary atherosclerosis , had CABG x 2 , 24 years ago in his late 40s, and subsequent protected left main stent. Most recent cath in 2009 revealed no culprit amenable for revascularization at that time, and grafts were patent. 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 Patient has done well with medical therapy for years. This is his first hospitalization for heart failure and comes after a pneumonia episode. At present, will continue medications. DC arcos, and optimize volume status. Discussed potential role of high risk cardiac cath with patient and his is agreeable but favors approach of medications first and would like to see how he feels in optimal medical therapy. I see no urgency for rushing to an invasive procedure at present. CHF symptoms are improving. BP stable. No arrhythmias on telemetry. No alycia angina ( although he is in bed). Will continue IV furosemide, optimize volume status and increase activity as tolerated. Likely ready for transfer to step down unit, 2 east bed. Await repeat EKG. Continue DVT prophylaxis SQ heparin. Laboratory Results Last 24 Hours Test 01/12/18 10:48 01/12/18 13:57 01/12/18 20:45 01/13/18 05:03 Bedside Glucose 110 mg/dl 138 mg/dl Troponin I 0.140 ng/ml 0.068 ng/ml White Blood Count 11.85 K/uL Red Blood Count 4.31 M/uL Hemoglobin 12.9 g/dL Hematocrit 40.0 % Mean Corpuscular Volume 92.8 fL Mean Corpuscular Hemoglobin 29.9 pg Mean Corpuscular Hemoglobin Concent 32.3 g/dl Platelet Count 189 K/uL Mean Platelet Volume 9.1 fL Neutrophils (%) (Auto) 62.6 % Lymphocytes (%) (Auto) 24.1 % Monocytes (%) (Auto) 8.8 % Eosinophils (%) (Auto) 2.0 % Basophils (%) (Auto) 0.2 % Neutrophils # (Auto) 7.42 K/uL Lymphocytes # (Auto) 2.86 K/uL Monocytes # (Auto) 1.04 K/uL Eosinophils # (Auto) 0.24 K/uL Basophils # (Auto) 0.02 K/uL RDW Standard Deviation 49.3 fL RDW Coefficient of Variation 14.5 % Immature Granulocyte % (Auto) 2.3 % Immature Granulocyte # (Auto) 0.27 K/uL Sodium Level 138 mmol/L Potassium Level 3.9 mmol/L Chloride Level 106 mmol/L Carbon Dioxide Level 29 mmol/L Anion Gap 3.0 mmol/L Blood Urea Nitrogen 31 mg/dl Creatinine 1.24 mg/dl Est Creatinine Clear Calc Drug Dose 67.2 ml/min Estimated GFR () 67.8 Estimated GFR (Non- 58.5 BUN/Creatinine Ratio 24.8 Random Glucose 124 mg/dl Calcium Level 8.5 mg/dl Phosphorus Level 3.7 mg/dl Magnesium Level 2.9 mg/dl Total Bilirubin 0.6 mg/dl Direct Bilirubin 0.2 mg/dl Aspartate Amino Transf (AST/SGOT) 49 U/L Alanine Aminotransferase (ALT/SGPT) 77 U/L Alkaline Phosphatase 137 U/L Total Protein 7.2 gm/dl Albumin 2.2 gm/dl
[2018-01-13] MEDS ORDERED: POTASSIUM CHLORIDE 10 MEQ TABCR PO STA (09:55)
[2018-01-13] MEDS: HEPARIN SOD 5000 UNIT/0.5 ML CARP SQ SCH ×2 (10:01→20:39)
--- NOTE | 2018-01-13 17:14 | Progress Note ---
Internal Med Progress Note Date of Service: Jan 13, 2018. Provider Documentation: Subjective When examined in the ICU, patient saturating in mid 80s after ambulating from commode to bed while on nasal cannula. Patient reports overall breathing is improved and less leg swelling. Patient was transferred to telemetry harris. Reports mostly being in the bed Physical exam General; no acute distress Head: Normocephalic Atraumatic. Eyes: EOMI, conjunctiva and sclera clear Neck: Supple.No JVD. Respiratory: No wheezing, fair air entry Cardiovascular: Reg rate and rhythm. S1 and S2 noted. No murmurs, rubs, gallops Abdomen: Normal bowel sounds, soft nontender. no abdominal bruits. Extremities: less edema of lower extremities compared to yesterday Neuro: No focal deficits. ASSESSMENT & PLAN: 72 year old M who was recently discharged from [facility] on 12/29/17 under [facility] hospitalist group after he was treated for pneumonia with also echocardiogram of grade 2 diastolic dysfunction and discharged with oral antibiotic and transferred from [facility] for worsening acute respiratory failure and transferred to the ICU of [facility] on 01/11/18. Transferred out of ICU on 01/13/18 -Echocardiogram 01/12/18 There is an anteroseptal wall motion abnormality with hypokinesis to akinesis of the segments and extending to the apex. There is hypokinesis to akinesis of the inferoseptum. Mild left ventricular systolic dysfunction is present with a qualitative ejection fraction of 40-45%. Compared to the prior echocardiogram images performed on 12/28/17 which were reviewed in comparison inferoseptal wall motion appears to be worse and there has been a subtle decline in the ejection fraction. -CXR 01/13/18: Unchanging diffuse right hemithoracic infiltrative change. Infiltrative change left base slightly progressive laterally. Mild stable cardiomegaly. IMPRESSION: Stable to slightly progressive parenchymal infiltrative change versus atypical pulmonary edema Plan: RESPIRATORY / CARDIAC -Acute respiratory failure with hypoxia secondary to CHF exacerbation CHF exacerbation - cardiology service following the patient:Mild, blunt troponin elevation consistent with heart failure decompensation, however, has new anteroseptal T wave inversion in lead V2 . Echo reveals chronic anteroseptal WMA, now with extension to inferoseptum worse than earlier this month. medical management at this time instead of cardiac cath - Continue IV furosemide and aldactone, Continue metoprolol succinate, Continue aspirin, rosuvastatin, ranexa. Other Cardiac history of CAD with CABG and PCI -aspirin, statin, beta mari Previous treatment for Community acquired Pneumonia on [facility] admission Patient has smoking history in the past and a known Right lower lobe nodule in the superior segment measuring approximately less than a centimeter. -outpatient follow up -DVT ppx heparin Full Code family: Kristyn [phone], Vital Signs: Date Time Temp Pulse Resp B/P (MAP) Pulse Ox O2 Delivery O2 Flow Rate FiO2 01/13/18 16:00 Nasal Cannula 2.0 01/13/18 15:22 36.7 73 18 108/70 (83) 94 Nasal Cannula 2.0 01/13/18 12:00 Nasal Cannula 2.0 01/13/18 11:01 36.4 76 25 95 6.0 01/13/18 10:00 76 25 134/85 (101) 95 Nasal Cannula 5.0 01/13/18 09:00 74 20 118/83 (95) 94 Nasal Cannula 5.0 01/13/18 08:01 36.4 77 26 141/74 (96) 92 Nasal Cannula 5.0 01/13/18 08:00 Nasal Cannula 5.0 01/13/18 07:00 47 25 112/61 (78) 91 Nasal Cannula 5.0 01/13/18 06:01 59 35 110/67 (81) 90 Nasal Cannula 5.0 01/13/18 04:01 68 20 125/76 (92) 93 Nasal Cannula 5.0 01/13/18 04:00 Nasal Cannula 5.0 01/13/18 02:01 69 24 134/75 (94) 93 Nasal Cannula 5.0 01/13/18 00:01 Nasal Cannula 5.0 01/13/18 00:01 36.8 67 25 127/91 (103) 94 Nasal Cannula 5.0 01/12/18 22:01 71 24 120/77 (91) 93 Nasal Cannula 5.0 01/12/18 20:01 36.7 73 26 155/93 (113) 97 Nasal Cannula 5.0 01/12/18 20:00 Nasal Cannula 5.0 01/12/18 18:01 72 25 165/88 (113) 94 Nasal Cannula 5.0 Lab Results: Results Past 24 Hours Test 01/12/18 20:45 01/13/18 05:03 Range/Units Bedside Glucose 138 70-99 mg/dl White Blood Count 11.85 4.8-10.8 K/uL Red Blood Count 4.31 4.7-6.1 M/uL Hemoglobin 12.9 14.0-18.0 g/dL Hematocrit 40.0 42-52 % Mean Corpuscular Volume 92.8 80-100 fL Mean Corpuscular Hemoglobin 29.9 25-34 pg Mean Corpuscular Hemoglobin Concent 32.3 32-36 g/dl Platelet Count 189 130-400 K/uL Mean Platelet Volume 9.1 7.4-10.4 fL Neutrophils (%) (Auto) 62.6 % Lymphocytes (%) (Auto) 24.1 % Monocytes (%) (Auto) 8.8 % Eosinophils (%) (Auto) 2.0 % Basophils (%) (Auto) 0.2 % Neutrophils # (Auto) 7.42 1.4-6.5 K/uL Lymphocytes # (Auto) 2.86 1.2-3.4 K/uL Monocytes # (Auto) 1.04 0.11-0.59 K/uL Eosinophils # (Auto) 0.24 0-0.5 K/uL Basophils # (Auto) 0.02 0-0.2 K/uL RDW Standard Deviation 49.3 36.4-46.3 fL RDW Coefficient of Variation 14.5 11.5-14.5 % Immature Granulocyte % (Auto) 2.3 % Immature Granulocyte # (Auto) 0.27 0.00-0.02 K/uL Sodium Level 138 136-145 mmol/L Potassium Level 3.9 3.5-5.1 mmol/L Chloride Level 106 98-107 mmol/L Carbon Dioxide Level 29 21-32 mmol/L Anion Gap 3.0 3-11 mmol/L Blood Urea Nitrogen 31 7-18 mg/dl Creatinine 1.24 0.60-1.40 mg/dl Est Creatinine Clear Calc Drug Dose 67.2 ml/min Estimated GFR () 67.8 Estimated GFR (Non- 58.5 BUN/Creatinine Ratio 24.8 10-20 Random Glucose 124 70-99 mg/dl Calcium Level 8.5 8.5-10.1 mg/dl Phosphorus Level 3.7 2.5-4.9 mg/dl Magnesium Level 2.9 1.8-2.4 mg/dl Total Bilirubin 0.6 0.2-1 mg/dl Direct Bilirubin 0.2 0-0.2 mg/dl Aspartate Amino Transf (AST/SGOT) 49 15-37 U/L Alanine Aminotransferase (ALT/SGPT) 77 12-78 U/L Alkaline Phosphatase 137 45-117 U/L Troponin I 0.068 0-0.045 ng/ml Total Protein 7.2 6.4-8.2 gm/dl Albumin 2.2 3.4-5.0 gm/dl
--- NOTE | 2018-01-13 20:58 | Pulmonology Progress Note ---
Pulmonary Progress Note Date of Service Jan 13, 2018. Attending Dr. Dang Subjective The patient continued to do well overnight, he continued to use also oxygen at 4 L nasal cannula which he did not have at home. The patient denies any chest pain, he has occasional cough with no sputum production. No hemoptysis reported. Objective His physical exam on 01/13/2018 revealed vital signs were stable, O2 saturation 95% on 4 L at rest, heart examination S1-S2 regular rate and rhythm, basilar crackles were audible, abdomen is benign, 2+ edema in the periphery. No new imaging. His labs were reviewed as well. Assessment & Plan 1. Coronary artery disease status post CABG with cardiomyopathy and ejection fraction 40%. Apparently the patient would like to followed by Dr. Payan, he is not opposing to have a PCI but he would like it done by Dr. Payan as he has known him for many years. 2. Interstitial lung disease, etiology related to occupational exposure to chemicals in the past. 3. Right lower lobe superior segment nodule needs follow-up every 6 months. 4. Recently treated pneumonia with total of 12 days of broad-spectrum antibiotics. Plan: 1. Continue with diuresis and cardiac regimen. 2. Appreciate cardiology input. 3. Continue with oxygen and likely he will need it even to home. 4. PCI per cardiology, was Dr. Payan returned on service. 5. No further recommendations from pulmonary standpoint. We will follow as needed. Thank you for your kind referral. Data Medications: Current Inpatient Medications Medications (Trade) Dose Ordered Sig/Janine Route Start Time Stop Time Status Last Admin Dose Admin Allopurinol (Zyloprim Tab) 300 mg DAILY PO 01/12/18 09:00 02/11/18 08:59 01/13/18 07:53 300 MG Aspirin (Ecotrin Tab) 81 mg QAM PO 01/12/18 09:00 02/11/18 08:59 01/13/18 07:54 81 MG Ranolazine (Ranexa ER Tab) 500 mg BID PO 01/11/18 21:00 02/10/18 20:59 01/13/18 20:38 500 MG Heparin Sodium (Porcine) (Heparin Sq 5000 Unit/0.5ml) 5,000 unit Q12 SQ 01/11/18 21:00 02/10/18 20:59 01/13/18 20:39 5,000 UNIT Pantoprazole Sodium (Protonix Tab) 40 mg QAM PO 01/12/18 09:00 02/11/18 08:59 01/13/18 07:54 40 MG Furosemide 40 mg/ Syringe 4 ml @ 4 mls/min BID17 IV 01/12/18 17:00 02/11/18 16:59 01/13/18 17:14 4 MLS/MIN Metoprolol Succinate (Toprol Xl Tab) 50 mg BID PO 01/12/18 21:00 02/11/18 20:59 01/13/18 20:38 50 MG Spironolactone (Aldactone Tab) 25 mg QAM PO 01/13/18 09:00 02/12/18 08:59 01/13/18 07:55 25 MG Rosuvastatin Calcium (Crestor Tab) 40 mg QAM PO 01/13/18 09:00 02/12/18 08:59 01/13/18 07:55 40 MG Heparin Sodium (Porcine) (Heparin 10 Unit/ ml 5 ml Flush) 5 ml PRN PRN FLUSH 01/12/18 23:45 02/11/18 23:44 I & O: 24-Hour Column 01/14/18 08:00 Intake Total 150 ml Output Total 900 ml Balance -750 ml Vital Signs: Date Time Temp Pulse Resp B/P (MAP) Pulse Ox O2 Delivery O2 Flow Rate FiO2 01/13/18 19:09 36.4 78 20 136/83 (100) 90 Nasal Cannula 3.0 01/13/18 16:00 Nasal Cannula 2.0 01/13/18 15:22 36.7 73 18 108/70 (83) 94 Nasal Cannula 2.0 01/13/18 12:00 Nasal Cannula 2.0 01/13/18 11:01 36.4 76 25 95 6.0 01/13/18 10:00 76 25 134/85 (101) 95 Nasal Cannula 5.0 01/13/18 09:00 74 20 118/83 (95) 94 Nasal Cannula 5.0 01/13/18 08:01 36.4 77 26 141/74 (96) 92 Nasal Cannula 5.0 01/13/18 08:00 Nasal Cannula 5.0 01/13/18 07:00 47 25 112/61 (78) 91 Nasal Cannula 5.0 4/19/18 06:01 59 35 110/67 (81) 90 Nasal Cannula 5.0 01/13/18 04:01 68 20 125/76 (92) 93 Nasal Cannula 5.0 01/13/18 04:00 Nasal Cannula 5.0 01/13/18 02:01 69 24 134/75 (94) 93 Nasal Cannula 5.0 01/13/18 00:01 Nasal Cannula 5.0 01/13/18 00:01 36.8 67 25 127/91 (103) 94 Nasal Cannula 5.0 01/12/18 22:01 71 24 120/77 (91) 93 Nasal Cannula 5.0 Laboratory Results: Last 24 Hours Test 01/13/18 05:03 White Blood Count 11.85 K/uL Red Blood Count 4.31 M/uL Hemoglobin 12.9 g/dL Hematocrit 40.0 % Mean Corpuscular Volume 92.8 fL Mean Corpuscular Hemoglobin 29.9 pg Mean Corpuscular Hemoglobin Concent 32.3 g/dl Platelet Count 189 K/uL Mean Platelet Volume 9.1 fL Neutrophils (%) (Auto) 62.6 % Lymphocytes (%) (Auto) 24.1 % Monocytes (%) (Auto) 8.8 % Eosinophils (%) (Auto) 2.0 % Basophils (%) (Auto) 0.2 % Neutrophils # (Auto) 7.42 K/uL Lymphocytes # (Auto) 2.86 K/uL Monocytes # (Auto) 1.04 K/uL Eosinophils # (Auto) 0.24 K/uL Basophils # (Auto) 0.02 K/uL RDW Standard Deviation 49.3 fL RDW Coefficient of Variation 14.5 % Immature Granulocyte % (Auto) 2.3 % Immature Granulocyte # (Auto) 0.27 K/uL Sodium Level 138 mmol/L Potassium Level 3.9 mmol/L Chloride Level 106 mmol/L Carbon Dioxide Level 29 mmol/L Anion Gap 3.0 mmol/L Blood Urea Nitrogen 31 mg/dl Creatinine 1.24 mg/dl Est Creatinine Clear Calc Drug Dose 67.2 ml/min Estimated GFR () 67.8 Estimated GFR (Non- 58.5 BUN/Creatinine Ratio 24.8 Random Glucose 124 mg/dl Calcium Level 8.5 mg/dl Phosphorus Level 3.7 mg/dl Magnesium Level 2.9 mg/dl Total Bilirubin 0.6 mg/dl Direct Bilirubin 0.2 mg/dl Aspartate Amino Transf (AST/SGOT) 49 U/L Alanine Aminotransferase (ALT/SGPT) 77 U/L Alkaline Phosphatase 137 U/L Troponin I 0.068 ng/ml Total Protein 7.2 gm/dl Albumin 2.2 gm/dl
[2018-01-14] VITALS (10 sets, daily range): BP systolic 109–118; BP diastolic 64–76; PULSE 63–81; TEMP 36.4–36.7; O2SAT 94–95
[2018-01-14 06:01] LABS: HEMATOCRIT 40.4 % (42-52); HEMOGLOBIN 13.2 g/dL (14.0-18.0); MEAN CELL VOLUME 92.4 fL (80-100); MEAN CORPUSCULAR HEMOGLOBIN 30.2 pg (25-34); MEAN CORPUSCULAR HGB CONC 32.7 g/dl (32-36); MEAN PLATELET VOLUME 9.7 fL (7.4-10.4); PLATELET COUNT 211 K/uL (130-400); RED CELL DISTRIBUTION WIDTH CV 14.6 % (11.5-14.5); RED CELL DISTRIBUTION WIDTH SD 48.8 fL (36.4-46.3); WHITE BLOOD COUNT 9.94 K/uL (4.8-10.8)
[2018-01-14 06:31] LABS: ALBUMIN 2.2 gm/dl (3.4-5.0); CALCIUM 8.8 mg/dl (8.5-10.1); CREATININE 1.19 mg/dl (0.60-1.40); POTASSIUM 3.7 mmol/L (3.5-5.1)
[2018-01-14 06:34] LABS: TOTAL PROTEIN 7.4 gm/dl (6.4-8.2)
[2018-01-14] MEDS: ALLOPURINOL 300 MG TAB PO SCH (08:43)
[2018-01-14] MEDS: ROSUVASTATIN CALCIUM 20 MG TAB PO SCH (08:43)
[2018-01-14] MEDS: RANOLAZINE 500 MG ER TAB PO SCH ×2 (08:43→21:20)
[2018-01-14] MEDS: METOPROLOL SUCC 50MG EXT REL TAB PO SCH ×2 (08:44→21:20)
[2018-01-14] MEDS: SPIRONOLACTONE 25 MG TAB PO SCH (08:44)
[2018-01-14] MEDS: PANTOprazole SOD 40 MG TAB PO SCH (08:44)
[2018-01-14] MEDS: ASPIRIN 81 MG ECTAB PO SCH (08:44)
[2018-01-14] MEDS: FUROSEMIDE INJ 40 MG in SYRINGE 0 ML IV SCH ×2 (08:44→17:14)
[2018-01-14] MEDS: HEPARIN SOD 5000 UNIT/0.5 ML CARP SQ SCH ×2 (08:46→21:21)
--- NOTE | 2018-01-14 12:28 | Cardiology Follow-Up ---
Subjective General Date of Service: Jan 14, 2018. Chief Complaint: follow up shorteness of breath Pt evaluation today including: conversation w/ patient, physical exam History of Present Illness The patient is a 72 year old male seen in follow-up. Telemetry reveals sinus rhythm with occasional PVCs. He states improved. He believes he really turned the corner yesterday and started to feel improvement. He is now out of the intensive care unit and his Porter catheter has been discontinued. He remains on IV furosemide 40 mg 2 times per day. EKG performed this morning at 629 revealed sinus rhythm with resolution of the previously noted anteroseptal T- wave inversions. Allergies Coded Allergies: Sulfa Antibiotics (Verified Allergy, Unknown, ., 12/27/17) Social History Smoking Status: Former Smoker Hx Tobacco Use In Past Year?: No Hx Alcohol Use - Type And Amou: Yes (2 cans of beer a day) Hx Substance Use - Type And Am: No Problem List Medical Problems: (1) Bilateral pneumonia Status: Acute Physical Exam Vital Signs Last Vital Signs Documentation Date Time Temp Pulse Resp B/P (MAP) Pulse Ox O2 Delivery O2 Flow Rate FiO2 01/14/18 12:00 Nasal Cannula 3.0 01/14/18 10:33 36.6 70 17 111/68 (82) 95 Physical Exam Constitutional: Level of Distress: NAD ENMT: hearing grossly normal Neck: supple Lungs: Auscultation: pertinent finding (mildly decreased BS at bases) Extremities: no edema Neurologic: Gait & Station: pertinent finding (no focal deficits ) Assessment and Plan Assessment and Plan Impression: 72-year-old male 1. Acute systolic heart failure, underlying ischemic heart disease 2. Recent treatment for community acquired pneumonia, improving Plan: Continue IV furosemide for now. Spironolactone was a new medication this admission, and he has been transitioned from atenolol to the evidence based beta -mari metoprolol succinate. His home dose of furosemide was 40 mg by mouth daily with metolazone 5 mg 1 time per week on Sundays. That his volume status is improved, his previously noted ischemic EKG changes have also resolved. He has been on when he was seen on a chronic basis Patient increase activity as tolerated I am going to ask him to walk in the hallway as tolerated today. Dr. Fuentes is going to take over writing responsibilities this weekend. If patient has refractory symptoms to medication therapy, would have low threshold for proceeding with high risk cardiac catheterization with history of complex anatomy including CABG and remote left main stenting Continue DVT prophylaxis SQ heparin. Laboratory Results Last 24 Hours Test 01/14/18 05:27 White Blood Count 9.94 K/uL Red Blood Count 4.37 M/uL Hemoglobin 13.2 g/dL Hematocrit 40.4 % Mean Corpuscular Volume 92.4 fL Mean Corpuscular Hemoglobin 30.2 pg Mean Corpuscular Hemoglobin Concent 32.7 g/dl RDW Standard Deviation 48.8 fL RDW Coefficient of Variation 14.6 % Platelet Count 211 K/uL Mean Platelet Volume 9.7 fL Sodium Level 138 mmol/L Potassium Level 3.7 mmol/L Chloride Level 105 mmol/L Carbon Dioxide Level 28 mmol/L Anion Gap 5.0 mmol/L Blood Urea Nitrogen 30 mg/dl Creatinine 1.19 mg/dl Est Creatinine Clear Calc Drug Dose 68.7 ml/min Estimated GFR () 71.3 Estimated GFR (Non- 61.5 BUN/Creatinine Ratio 24.9 Random Glucose 132 mg/dl Calcium Level 8.8 mg/dl Magnesium Level 2.7 mg/dl Total Bilirubin 0.7 mg/dl Direct Bilirubin 0.1 mg/dl Aspartate Amino Transf (AST/SGOT) 46 U/L Alanine Aminotransferase (ALT/SGPT) 69 U/L Alkaline Phosphatase 129 U/L Total Protein 7.4 gm/dl Albumin 2.2 gm/dl
--- NOTE | 2018-01-14 18:13 | Progress Note ---
Internal Med Progress Note Date of Service: Jan 14, 2018. Provider Documentation: Subjective Patient denies worsening shortness of breath Physical exam General; no acute distress Head: Normocephalic Atraumatic. Eyes: EOMI, conjunctiva and sclera clear Neck: Supple.No JVD. Respiratory: No wheezing, fair air entry Cardiovascular: Reg rate and rhythm. S1 and S2 noted. No murmurs, rubs, gallops Abdomen: Normal bowel sounds, soft nontender. no abdominal bruits. Extremities: even less edema of lower extremities compared to yesterday Neuro: No focal deficits. ASSESSMENT & PLAN: 72 year old M who was recently discharged from [facility] on 12/29/17 under [facility]ist group after he was treated for pneumonia with also echocardiogram of grade 2 diastolic dysfunction and discharged with oral antibiotic and transferred from [facility] for worsening acute respiratory failure and transferred to the ICU of [facility] on 01/11/18. Transferred out of ICU on 01/13/18 -Echocardiogram 01/12/18 There is an anteroseptal wall motion abnormality with hypokinesis to akinesis of the segments and extending to the apex. There is hypokinesis to akinesis of the inferoseptum. Mild left ventricular systolic dysfunction is present with a qualitative ejection fraction of 40-45%. Compared to the prior echocardiogram images performed on 12/28/17 which were reviewed in comparison inferoseptal wall motion appears to be worse and there has been a subtle decline in the ejection fraction. -CXR 01/13/18: Unchanging diffuse right hemithoracic infiltrative change. Infiltrative change left base slightly progressive laterally. Mild stable cardiomegaly. IMPRESSION: Stable to slightly progressive parenchymal infiltrative change versus atypical pulmonary edema Plan: RESPIRATORY / CARDIAC -Acute respiratory failure with hypoxia secondary to CHF exacerbation CHF exacerbation - cardiology service following the patient:Mild, blunt troponin elevation consistent with heart failure decompensation, however, has new anteroseptal T wave inversion in lead V2 . Echo reveals chronic anteroseptal WMA, now with extension to inferoseptum worse than earlier this month. medical management at this time instead of cardiac cath - Continue IV furosemide and aldactone, Continue metoprolol succinate, Continue aspirin, rosuvastatin, ranexa. Other Cardiac history of CAD with CABG and PCI -aspirin, statin, beta mari Previous treatment for Community acquired Pneumonia on [facility] admission Patient has smoking history in the past and a known Right lower lobe nodule in the superior segment measuring approximately less than a centimeter. -outpatient follow up -DVT ppx heparin subcutaneous Full Code family: Kristyn [phone], Disposition: patient's hospital plan primarily unchanged as of yesterday as he is to remain in the hospital for IV furosemide as per cardiology service. (as per cardiology: If patient has refractory symptoms to medication therapy, would have low threshold for proceeding with high risk cardiac catheterization with history of complex anatomy including CABG and remote left main stenting) Vital Signs: Date Time Temp Pulse Resp B/P (MAP) Pulse Ox O2 Delivery O2 Flow Rate FiO2 01/14/18 16:00 Nasal Cannula 3.0 01/14/18 15:13 36.7 80 22 112/70 (84) 94 Nasal Cannula 3.0 01/14/18 12:00 Nasal Cannula 3.0 01/14/18 10:33 36.6 70 17 111/68 (82) 95 Nasal Cannula 3.0 01/14/18 08:00 36.4 76 16 115/71 (86) 94 Nasal Cannula 3.0 01/14/18 08:00 Nasal Cannula 3.0 01/14/18 04:00 94 Nasal Cannula 3.5 01/14/18 03:16 36.4 63 18 109/64 (79) 94 Nasal Cannula 3.0 01/14/18 00:00 36.5 67 24 111/76 (88) 95 Nasal Cannula 3.5 01/14/18 00:00 95 Nasal Cannula 3.5 01/13/18 20:00 Nasal Cannula 3.0 01/13/18 19:09 36.4 78 20 136/83 (100) 90 Nasal Cannula 3.0 Lab Results: Results Past 24 Hours Test 01/14/18 05:27 Range/Units White Blood Count 9.94 4.8-10.8 K/uL Red Blood Count 4.37 4.7-6.1 M/uL Hemoglobin 13.2 14.0-18.0 g/dL Hematocrit 40.4 42-52 % Mean Corpuscular Volume 92.4 80-100 fL Mean Corpuscular Hemoglobin 30.2 25-34 pg Mean Corpuscular Hemoglobin Concent 32.7 32-36 g/dl RDW Standard Deviation 48.8 36.4-46.3 fL RDW Coefficient of Variation 14.6 11.5-14.5 % Platelet Count 211 130-400 K/uL Mean Platelet Volume 9.7 7.4-10.4 fL Sodium Level 138 136-145 mmol/L Potassium Level 3.7 3.5-5.1 mmol/L Chloride Level 105 98-107 mmol/L Carbon Dioxide Level 28 21-32 mmol/L Anion Gap 5.0 3-11 mmol/L Blood Urea Nitrogen 30 7-18 mg/dl Creatinine 1.19 0.60-1.40 mg/dl Est Creatinine Clear Calc Drug Dose 68.7 ml/min Estimated GFR () 71.3 Estimated GFR (Non- 61.5 BUN/Creatinine Ratio 24.9 10-20 Random Glucose 132 70-99 mg/dl Calcium Level 8.8 8.5-10.1 mg/dl Magnesium Level 2.7 1.8-2.4 mg/dl Total Bilirubin 0.7 0.2-1 mg/dl Direct Bilirubin 0.1 0-0.2 mg/dl Aspartate Amino Transf (AST/SGOT) 46 15-37 U/L Alanine Aminotransferase (ALT/SGPT) 69 12-78 U/L Alkaline Phosphatase 129 45-117 U/L Total Protein 7.4 6.4-8.2 gm/dl Albumin 2.2 3.4-5.0 gm/dl
[2018-01-15] VITALS (12 sets, daily range): BP systolic 113–119; BP diastolic 57–76; PULSE 55–85; TEMP 36.5–37; O2SAT 92–95
[2018-01-15] MEDS: METOPROLOL SUCC 50MG EXT REL TAB PO SCH ×2 (07:35→21:31)
[2018-01-15] MEDS: RANOLAZINE 500 MG ER TAB PO SCH ×2 (07:36→21:30)
[2018-01-15] MEDS: PANTOprazole SOD 40 MG TAB PO SCH (07:36)
[2018-01-15] MEDS: ROSUVASTATIN CALCIUM 20 MG TAB PO SCH (07:36)
[2018-01-15] MEDS: ALLOPURINOL 300 MG TAB PO SCH (07:37)
[2018-01-15] MEDS: ASPIRIN 81 MG ECTAB PO SCH (07:37)
[2018-01-15] MEDS: SPIRONOLACTONE 25 MG TAB PO SCH (07:37)
[2018-01-15] MEDS: HEPARIN SOD 5000 UNIT/0.5 ML CARP SQ SCH ×2 (07:44→21:34)
[2018-01-15 09:07] LABS: ALBUMIN 2.7 gm/dl (3.4-5.0); CALCIUM 9.2 mg/dl (8.5-10.1); CREATININE 1.15 mg/dl (0.60-1.40); POTASSIUM 3.8 mmol/L (3.5-5.1)
[2018-01-15] MEDS: FUROSEMIDE INJ 40 MG in SYRINGE 0 ML IV SCH ×2 (09:43→16:51)
--- NOTE | 2018-01-15 09:45 | DIAGNOSTIC IMAGING REPORT ---
TWO VIEW CHEST CLINICAL HISTORY: Hypoxia. FINDINGS: PA and lateral chest radiographs are compared to study dated 01/13/2018 and correlated with chest CT dated 12/27/2017. The PA view is degraded by patient rotation. The patient is status post midline sternotomy. The heart is enlarged and there is atherosclerotic calcification of the thoracic aorta. There is mild pulmonary vascular congestion which has improved from 01/13/2018. Emphysema and chronic interstitial thickening are similar to previous. Patchy airspace opacities are seen in the mid to lower lungs. There is no pleural effusion or pneumothorax. The skeletal structures are osteopenic. There is a healed right clavicular fracture. IMPRESSION: 1. Cardiomegaly with mild pulmonary vascular congestion. This has improved from 01/13/2018. 2. Advanced emphysema. 3. Patchy airspace opacities are seen in the mid to lower lungs. This likely represents an infectious/inflammatory pneumonitis. Clinical correlation will be required. Electronically signed by: Rafa Boyd M.D. 01/15/2018 9:44 AM Dictated Date/Time: 01/15/2018 9:36 AM
--- NOTE | 2018-01-15 13:31 | Progress Note ---
Internal Med Progress Note Date of Service: Jan 15, 2018. Provider Documentation: Subjective Patient denies chest pain. Patient denies worsening shortness of breath. He is still on nasal cannula at rest. Physical exam General; no acute distress Head: Normocephalic Atraumatic. Eyes: EOMI, conjunctiva and sclera clear Neck: Supple.No JVD. Respiratory: No wheezing, fair air entry, some congestion of the mid lung field Cardiovascular: Reg rate and rhythm. S1 and S2 noted. No murmurs, rubs, gallops Abdomen: Normal bowel sounds, soft nontender. no abdominal bruits. Extremities: trace lower extremity edema Neuro: No focal deficits. ASSESSMENT & PLAN: 72 year old M who was recently discharged from [facility] on 12/29/17 under [facility] hospitalist group after he was treated for pneumonia with also echocardiogram of grade 2 diastolic dysfunction and discharged with oral antibiotic and transferred from [facility] for worsening acute respiratory failure and transferred to the ICU of [facility] on 01/11/18. Transferred out of ICU on 01/13/18 -Echocardiogram 01/12/18 There is an anteroseptal wall motion abnormality with hypokinesis to akinesis of the segments and extending to the apex. There is hypokinesis to akinesis of the inferoseptum. Mild left ventricular systolic dysfunction is present with a qualitative ejection fraction of 40-45%. Compared to the prior echocardiogram images performed on 12/28/17 which were reviewed in comparison inferoseptal wall motion appears to be worse and there has been a subtle decline in the ejection fraction. -CXR 01/13/18: "Unchanging diffuse right hemithoracic infiltrative change. Infiltrative change left base slightly progressive laterally. Mild stable cardiomegaly. IMPRESSION: Stable to slightly progressive parenchymal infiltrative change versus atypical pulmonary edema" CXR 01/15/18: "1. Cardiomegaly with mild pulmonary vascular congestion. This has improved from 01/13/2018. 2. Advanced emphysema. 3. Patchy airspace opacities are seen in the mid to lower lungs. This likely represents an infectious/ inflammatory pneumonitis. Clinical correlation will be required." Plan: RESPIRATORY / CARDIAC -Acute respiratory failure with hypoxia secondary to CHF exacerbation CHF exacerbation - cardiology service following the patient:Mild, blunt troponin elevation consistent with heart failure decompensation, however, has new anteroseptal T wave inversion in lead V2 . Echo reveals chronic anteroseptal WMA, now with extension to inferoseptum worse than earlier this month. medical management at this time instead of cardiac cath - Continue IV furosemide and aldactone, Continue metoprolol succinate, Continue aspirin, rosuvastatin, ranexa. - CXR on 01/15/18 shows greater decrease in pulmonary congestion and patient is losing water weight and reduced leg edema secondary to the IV Lasix. The patchy lung opacities in the mid to lower lung zamora is read radiographically as a pneumonitis. At issue is whether this infectious or inflammatory - the process is unlikely to be infectious given lack of fever and previous treatments prior to this hospital admission on antibiotics. - However the patient is still hypoxic and requiring nasal cannula oxygen and likely may desaturate while walking without oxygen - Ideally patient should be discharged from hospital stay and be on room air, but he may need portable oxygen if hypoxia does not improve - will continue diuresis, will monitor O2 saturation, will likely need 2 step test to determine oxygen needs - as per cardiology notes on 01/14/18: If patient has refractory symptoms to medication therapy, would have low threshold for proceeding with high risk cardiac catheterization with history of complex anatomy including CABG and remote left main stenting Other Cardiac history of CAD with CABG and PCI -aspirin, statin, beta mari Previous treatment for Community acquired Pneumonia on last [facility] admission Patient has smoking history in the past and a known Right lower lobe nodule in the superior segment measuring approximately less than a centimeter. -outpatient follow up -DVT ppx heparin subcutaneous Full Code family: Kristyn [phone], Vital Signs: Date Time Temp Pulse Resp B/P (MAP) Pulse Ox O2 Delivery O2 Flow Rate FiO2 01/15/18 12:04 95 Nasal Cannula 3.0 01/15/18 10:43 36.5 79 20 119/76 (90) 94 Nasal Cannula 3.0 01/15/18 08:00 95 Nasal Cannula 3.0 01/15/18 07:23 36.6 78 20 113/72 (86) 94 Nasal Cannula 3.0 01/15/18 04:00 95 Nasal Cannula 3.0 01/15/18 04:00 36.5 55 18 117/57 (77) 95 Nasal Cannula 3.0 4/21/18 00:00 94 Nasal Cannula 3.0 01/14/18 23:41 36.5 71 21 118/74 (89) 94 Nasal Cannula 3.0 01/14/18 21:19 80 109/64 (79) 01/14/18 20:00 95 Nasal Cannula 3.0 01/14/18 19:06 36.6 81 20 111/71 (84) 95 Nasal Cannula 3.0 01/14/18 16:00 Nasal Cannula 3.0 01/14/18 15:13 36.7 80 22 112/70 (84) 94 Nasal Cannula 3.0 Lab Results: Results Past 24 Hours Test 01/15/18 08:11 Range/Units Venous Blood pH 7.37 7.36-7.41 Venous Blood Partial Pressure CO2 57 38.0-50.0 mmHg Venous Blood Partial Pressure O2 18 mmHg Venous Blood HCO3 32 mmol/L Venous Blood Oxygen Saturation < 60.0 % Venous Blood Base Excess 4.9 mEq/L Sodium Level 139 136-145 mmol/L Potassium Level 3.8 3.5-5.1 mmol/L Chloride Level 103 98-107 mmol/L Carbon Dioxide Level 30 21-32 mmol/L Anion Gap 6.0 3-11 mmol/L Blood Urea Nitrogen 26 7-18 mg/dl Creatinine 1.15 0.60-1.40 mg/dl Est Creatinine Clear Calc Drug Dose 71.3 ml/min Estimated GFR () 74.3 Estimated GFR (Non- 64.1 BUN/Creatinine Ratio 22.8 10-20 Random Glucose 153 70-99 mg/dl Calcium Level 9.2 8.5-10.1 mg/dl Total Bilirubin 0.7 0.2-1 mg/dl Aspartate Amino Transf (AST/SGOT) 38 15-37 U/L Alanine Aminotransferase (ALT/SGPT) 65 12-78 U/L Alkaline Phosphatase 129 45-117 U/L Pro-B-Type Natriuretic Peptide 900 0-900 pg/ml Total Protein 8.0 6.4-8.2 gm/dl Albumin 2.7 3.4-5.0 gm/dl Globulin 5.3 2.5-4.0 gm/dl Albumin/Globulin Ratio 0.5 0.9-2
--- NOTE | 2018-01-15 15:33 | Cardiology Follow-Up ---
Subjective General Date of Service: Jan 15, 2018. Chief Complaint: follow up shorteness of breath Pt evaluation today including: conversation w/ patient, conversation w/ family , physical exam, chart review, lab review, review of studies, review of inpatient medication list History of Present Illness The patient is a 72 year old male seen in follow-up. Reports losing approximately 47 pounds over the past 3-4 weeks. Creatinine stable today. Receiving IV Lasix twice daily. Aldactone added this admission. Mildly elevated troponins noted. Recently treated for community-acquired pneumonia. is present at bedside. Patient ambulating in the halls without exertional chest discomfort or unusual shortness of breath. Allergies Coded Allergies: Sulfa Antibiotics (Verified Allergy, Unknown, ., 12/27/17) Social History Smoking Status: Former Smoker Hx Tobacco Use In Past Year?: No Hx Alcohol Use - Type And Amou: Yes (2 cans of beer a day) Hx Substance Use - Type And Am: No Problem List Medical Problems: (1) Bilateral pneumonia Status: Acute Review of Systems Respiratory: + cough, + dyspnea on exertion, No sputum, No wheezing, No shortness of breath, No dyspnea at rest, No hemoptysis Cardiac: + edema, No chest pain, No orthopnea, No PND, No claudication, No palpitations Physical Exam Vital Signs Last Vital Signs Documentation Date Time Temp Pulse Resp B/P (MAP) Pulse Ox O2 Delivery O2 Flow Rate FiO2 01/15/18 12:04 95 Nasal Cannula 3.0 01/15/18 10:43 36.5 79 20 119/76 (90) Physical Exam Constitutional: Level of Distress: NAD ENMT: hearing grossly normal Neck: supple Lungs: Auscultation: pertinent finding (mildly decreased BS at bases) Cardiovascular: Heart Auscultation: RRR, normal S1, normal S2, no murmurs Peripheral Pulses: Radial Pulse: normal on the right Abdomen: Inspection & Palpation: soft, non-distended, no tenderness, guarding & rebound Extremities: edema (Trace bilateral pedal edema) Neurologic: Gait & Station: pertinent finding (no focal deficits ) Assessment and Plan Assessment and Plan 1. Acute systolic heart failure, underlying complex ischemic heart disease 2. Recent treatment for community acquired pneumonia, improving Plan: Continue IV furosemide 40 mg twice daily. Continue Aldactone, metoprolol, aspirin, Ranexa, and Crestor. Monitor daily weight, fluid balance, and basic metabolic panel. Patient will increase activity as tolerated. Encouraged to ambulate in the halls. I will continue to follow closely during hospitalization. Laboratory Results Last 24 Hours Test 01/15/18 08:11 Venous Blood pH 7.37 Venous Blood Partial Pressure CO2 57 mmHg Venous Blood Partial Pressure O2 18 mmHg Venous Blood HCO3 32 mmol/L Venous Blood Oxygen Saturation < 60.0 % Venous Blood Base Excess 4.9 mEq/L Sodium Level 139 mmol/L Potassium Level 3.8 mmol/L Chloride Level 103 mmol/L Carbon Dioxide Level 30 mmol/L Anion Gap 6.0 mmol/L Blood Urea Nitrogen 26 mg/dl Creatinine 1.15 mg/dl Est Creatinine Clear Calc Drug Dose 71.3 ml/min Estimated GFR () 74.3 Estimated GFR (Non- 64.1 BUN/Creatinine Ratio 22.8 Random Glucose 153 mg/dl Calcium Level 9.2 mg/dl Total Bilirubin 0.7 mg/dl Aspartate Amino Transf (AST/SGOT) 38 U/L Alanine Aminotransferase (ALT/SGPT) 65 U/L Alkaline Phosphatase 129 U/L Pro-B-Type Natriuretic Peptide 900 pg/ml Total Protein 8.0 gm/dl Albumin 2.7 gm/dl Globulin 5.3 gm/dl Albumin/Globulin Ratio 0.5
[2018-01-16] VITALS (8 sets, daily range): BP systolic 100–127; BP diastolic 63–78; PULSE 73–87; TEMP 36.3–36.7; O2SAT 91–97
[2018-01-16 07:07] LABS: ALBUMIN 2.4 gm/dl (3.4-5.0); CREATININE 1.08 mg/dl (0.60-1.40); POTASSIUM 3.7 mmol/L (3.5-5.1)
[2018-01-16 07:09] LABS: TOTAL PROTEIN 7.4 gm/dl (6.4-8.2)
[2018-01-16] MEDS: HEPARIN SOD 5000 UNIT/0.5 ML CARP SQ SCH ×2 (08:15→20:45)
[2018-01-16] MEDS: ROSUVASTATIN CALCIUM 20 MG TAB PO SCH (08:16)
[2018-01-16] MEDS: METOPROLOL SUCC 50MG EXT REL TAB PO SCH ×2 (08:16→20:43)
[2018-01-16] MEDS: ASPIRIN 81 MG ECTAB PO SCH (08:17)
[2018-01-16] MEDS: PANTOprazole SOD 40 MG TAB PO SCH (08:17)
[2018-01-16] MEDS: ALLOPURINOL 300 MG TAB PO SCH (08:17)
[2018-01-16] MEDS: RANOLAZINE 500 MG ER TAB PO SCH ×2 (08:18→20:44)
[2018-01-16] MEDS: SPIRONOLACTONE 25 MG TAB PO SCH (08:18)
[2018-01-16] MEDS ORDERED: FUROSEMIDE 40 MG TAB PO SCH (09:00)
--- NOTE | 2018-01-16 11:32 | Cardiology Follow-Up ---
Subjective General Date of Service: Jan 16, 2018. Chief Complaint: follow up shorteness of breath Pt evaluation today including: conversation w/ patient, conversation w/ family , physical exam, chart review, lab review, review of studies, conversation w/ inside sales consultant, review of inpatient medication list History of Present Illness The patient is a 72 year old male seen in follow-up. Ambulating in the halls. Dyspnea on exertion improving, however continues to require oxygen supplementation at rest. Denies chest discomfort. Tolerating current medications. Telemetry demonstrates sinus rhythm with occasional premature ventricular complexes. Allergies Coded Allergies: Sulfa Antibiotics (Verified Allergy, Unknown, ., 12/27/17) Social History Smoking Status: Former Smoker Hx Tobacco Use In Past Year?: No Hx Alcohol Use - Type And Amou: Yes (2 cans of beer a day) Hx Substance Use - Type And Am: No Problem List Medical Problems: (1) Bilateral pneumonia Status: Acute Review of Systems Respiratory: + dyspnea on exertion, No cough, No sputum, No wheezing, No shortness of breath, No dyspnea at rest, No hemoptysis Cardiac: No chest pain, No orthopnea, No PND, No edema, No claudication, No palpitations Physical Exam Vital Signs Last Vital Signs Documentation Date Time Temp Pulse Resp B/P (MAP) Pulse Ox O2 Delivery O2 Flow Rate FiO2 01/16/18 08:00 Nasal Cannula 2.0 01/16/18 07:08 36.4 73 18 124/78 (93) 97 Physical Exam Constitutional: Level of Distress: NAD ENMT: hearing grossly normal Neck: supple Lungs: Auscultation: pertinent finding (mildly decreased BS at bases) Cardiovascular: Heart Auscultation: RRR, normal S1, normal S2, no murmurs Peripheral Pulses: Radial Pulse: normal on the right Abdomen: Inspection & Palpation: soft, non-distended, no tenderness, guarding & rebound Extremities: no cyanosis, no edema, no clubbing, no ulcers Neurologic: Gait & Station: pertinent finding (no focal deficits ) Assessment and Plan Assessment and Plan 1. Acute systolic heart failure, underlying complex ischemic heart disease 2. Recent treatment for community acquired pneumonia, improving 3. Hypoxia secondary to above Plan: Continue IV furosemide 40 mg twice daily. Continue Aldactone, metoprolol, aspirin, Ranexa, and Crestor. Monitor daily weight, fluid balance, and basic metabolic panel. Patient will increase activity as tolerated. Encouraged to ambulate in the halls. Laboratory Results Last 24 Hours Test 01/16/18 05:14 Sodium Level 139 mmol/L Potassium Level 3.7 mmol/L Chloride Level 104 mmol/L Carbon Dioxide Level 29 mmol/L Anion Gap 6.0 mmol/L Blood Urea Nitrogen 27 mg/dl Creatinine 1.08 mg/dl Est Creatinine Clear Calc Drug Dose 75.8 ml/min Estimated GFR () 80.2 Estimated GFR (Non- 69.2 BUN/Creatinine Ratio 25.0 Random Glucose 125 mg/dl Calcium Level 9.0 mg/dl Magnesium Level 2.4 mg/dl Total Bilirubin 0.7 mg/dl Aspartate Amino Transf (AST/SGOT) 43 U/L Alanine Aminotransferase (ALT/SGPT) 51 U/L Alkaline Phosphatase 106 U/L Total Protein 7.4 gm/dl Albumin 2.4 gm/dl Globulin 5.0 gm/dl Albumin/Globulin Ratio 0.5 Chemistry Specimen Hemolysis
--- NOTE | 2018-01-16 14:52 | Progress Note ---
Internal Med Progress Note Date of Service: Jan 16, 2018. Provider Documentation: Subjective Patient denies chest pain. Patient denies worsening shortness of breath. He is still on nasal cannula at rest. Physical exam General; no acute distress Head: Normocephalic Atraumatic. Eyes: EOMI, conjunctiva and sclera clear Neck: Supple.No JVD. Respiratory: No wheezing, fair air entry, mild congestion of the mid lung field Cardiovascular: Reg rate and rhythm. S1 and S2 noted. No murmurs, rubs, gallops Abdomen: Normal bowel sounds, soft nontender. no abdominal bruits. Extremities: trace lower extremity edema Neuro: No focal deficits. ASSESSMENT & PLAN: 72 year old M who was recently discharged from [facility] on 12/29/17 under [facility] hospitalist group after he was treated for pneumonia with also echocardiogram of grade 2 diastolic dysfunction and discharged with oral antibiotic and transferred from [facility] for worsening acute respiratory failure and transferred to the ICU of [facility] on 01/11/18. Transferred out of ICU on 01/13/18 -Echocardiogram 01/12/18 There is an anteroseptal wall motion abnormality with hypokinesis to akinesis of the segments and extending to the apex. There is hypokinesis to akinesis of the inferoseptum. Mild left ventricular systolic dysfunction is present with a qualitative ejection fraction of 40-45%. Compared to the prior echocardiogram images performed on 12/28/17 which were reviewed in comparison inferoseptal wall motion appears to be worse and there has been a subtle decline in the ejection fraction. -CXR 01/13/18: "Unchanging diffuse right hemithoracic infiltrative change. Infiltrative change left base slightly progressive laterally. Mild stable cardiomegaly. IMPRESSION: Stable to slightly progressive parenchymal infiltrative change versus atypical pulmonary edema" CXR 01/15/18: "1. Cardiomegaly with mild pulmonary vascular congestion. This has improved from 01/13/2018. 2. Advanced emphysema. 3. Patchy airspace opacities are seen in the mid to lower lungs. This likely represents an infectious/ inflammatory pneumonitis. Clinical correlation will be required." Plan: RESPIRATORY / CARDIAC -Acute respiratory failure with hypoxia secondary to CHF exacerbation CHF exacerbation - cardiology service following the patient:Mild, blunt troponin elevation consistent with heart failure decompensation, however, has new anteroseptal T wave inversion in lead V2 . Echo reveals chronic anteroseptal WMA, now with extension to inferoseptum worse than earlier this month. medical management at this time instead of cardiac cath - Continue IV furosemide and aldactone, Continue metoprolol succinate, Continue aspirin, rosuvastatin, ranexa. - CXR on 01/15/18 shows greater decrease in pulmonary congestion and patient is losing water weight and reduced leg edema secondary to the IV Lasix. The patchy lung opacities in the mid to lower lung zamora is read radiographically as a pneumonitis. At issue is whether this infectious or inflammatory - the process is unlikely to be infectious given lack of fever and previous treatments prior to this hospital admission on antibiotics. - as per cardiology notes on 01/14/18: If patient has refractory symptoms to medication therapy, would have low threshold for proceeding with high risk cardiac catheterization with history of complex anatomy including CABG and remote left main stenting - cardiology note 01/16/18: advises to continue with IV BID Lasix Other Cardiac history of CAD with CABG and PCI: aspirin, statin, beta mari Previous treatment for Community acquired Pneumonia on last [facility] admission Goal at this time is to continue to diuresis patient with hopes that this would improve the hypoxia Patient had a 2 Step test done by respiratory therapist on 01/15/18 and determined that if patient were to be discharged around this time, he would need home oxygen for rest and ambulation as written below: "2 Step Pre-exercise Comments SPO2 85% on room air HR 87. Icreased to 1 liter for SPO2 of 97% HR 89 Increased to 2 liters for SPO2 of 88% HR 87. Increased to 3 liters for SPO2 of 90% HR 80. 2 Step Exercise Comments Patient ambulated in ko for approximately 35 feet and dropped to 86% on 3 liters. Increased to 4 liters SPO2 ambulated 30 feet more and dropped to 87% Placed on 5 liters to maintain SPO2 of 89%. 2 Step Exercise Recovery Comments SPO2 94% at rest on 5 liters sitting in wheelchair. Decreased to 3 liters for SPO2 on 91% at rest sitting in bed. Results of 2 Step Exercise Test Patient requires 3 liiters at rest and 5 liters with exercise to maintain SPO2 of 89% or above." Patient has smoking history in the past and a known Right lower lobe nodule in the superior segment measuring approximately less than a centimeter. -outpatient follow up -DVT ppx heparin subcutaneous Full Code family: Kristyn [phone], Vital Signs: Date Time Temp Pulse Resp B/P (MAP) Pulse Ox O2 Delivery O2 Flow Rate FiO2 01/16/18 12:00 Nasal Cannula 2.0 01/16/18 11:49 36.7 84 20 127/76 (93) 91 Nasal Cannula 2.0 01/16/18 08:00 Nasal Cannula 2.0 01/16/18 07:08 36.4 73 18 124/78 (93) 97 Nasal Cannula 2.0 01/16/18 04:00 94 Nasal Cannula 01/16/18 03:45 36.4 77 22 117/72 (87) 97 Nasal Cannula 2.0 01/16/18 00:00 94 Nasal Cannula 01/15/18 22:43 36.6 77 21 119/71 (87) 94 Nasal Cannula 2.0 01/15/18 21:31 85 119/73 (88) 01/15/18 20:00 94 Nasal Cannula 01/15/18 19:24 36.7 70 20 118/70 (86) 94 Nasal Cannula 3.0 01/15/18 15:48 95 Nasal Cannula 3.0 01/15/18 15:41 37.0 80 20 113/75 (88) 92 Nasal Cannula 3.0 Lab Results: Results Past 24 Hours Test 01/16/18 05:14 Range/Units Sodium Level 139 136-145 mmol/L Potassium Level 3.7 3.5-5.1 mmol/L Chloride Level 104 98-107 mmol/L Carbon Dioxide Level 29 21-32 mmol/L Anion Gap 6.0 3-11 mmol/L Blood Urea Nitrogen 27 7-18 mg/dl Creatinine 1.08 0.60-1.40 mg/dl Est Creatinine Clear Calc Drug Dose 75.8 ml/min Estimated GFR () 80.2 Estimated GFR (Non- 69.2 BUN/Creatinine Ratio 25.0 10-20 Random Glucose 125 70-99 mg/dl Calcium Level 9.0 8.5-10.1 mg/dl Magnesium Level 2.4 1.8-2.4 mg/dl Total Bilirubin 0.7 0.2-1 mg/dl Aspartate Amino Transf (AST/SGOT) 43 15-37 U/L Alanine Aminotransferase (ALT/SGPT) 51 12-78 U/L Alkaline Phosphatase 106 45-117 U/L Total Protein 7.4 6.4-8.2 gm/dl Albumin 2.4 3.4-5.0 gm/dl Globulin 5.0 2.5-4.0 gm/dl Albumin/Globulin Ratio 0.5 0.9-2 Chemistry Specimen Hemolysis
[2018-01-16] MEDS: FUROSEMIDE INJ 40 MG in SYRINGE 0 ML IV SCH (16:43)
[2018-01-17] VITALS: O2SAT 95
[2018-01-17 03:15] VITALS: BP 135/76; PULSE 78; TEMP 36.6; O2SAT 91
[2018-01-17 04:00] VITALS: O2SAT 91
--- NOTE | 2018-01-17 05:07 | Progress Note ---
Post ICU Progress Note Date & Time Jan 17, 2018 at 05:04 Vital Signs Vital Signs Past 12 Hours Date Time Temp Pulse Resp B/P (MAP) Pulse Ox O2 Delivery O2 Flow Rate FiO2 01/17/18 03:15 36.6 78 21 135/76 (95) 91 Nasal Cannula 2.0 01/17/18 00:00 95 Nasal Cannula 2.0 01/16/18 23:40 36.6 73 20 123/72 (89) 95 Nasal Cannula 2.0 01/16/18 20:00 36.3 87 18 105/64 (78) 97 Nasal Cannula 2.0 01/16/18 20:00 97 Nasal Cannula 2.0 Notes Mental Status: alert / awake Nausea / Vomiting: adequately controlled Pain: adequately controlled Airway Patency, RR, SpO2: stable & adequate BP & HR: stable & adequate Patient is a 72-year-old male who was initially admitted to the ICU in acute respiratory distress secondary to CHF exacerbation. The patient has a history of recent pneumonia with diagnosis this facility. He presented to [facility] where he was treated for pneumonia as well. During his stay , he developed worsening shortness of breath and increasing O2 requirement. On evaluation at this facility, he was actively diuresed and received BiPAP with moderate improvement in symptoms. Eventually, the patient was downgraded from ICU status and is continued to progress nicely throughout his stay. On evaluation, the patient is awake, alert, and oriented. Patient reports feeling much better at this time and informs me that his oxygen has been turned down even further and he continues to tolerate it well. He offers no complaints at this point and reports feeling much better at this time. Consider outpatient follow up in 1 to 2 weeks with: [facility] Repeat imaging needed: CXR if change in oxygen requirements. Follow up cultures: None at this time. Reviewed progress notes, labs, and inpatient medication list Continue current management Additional recommendations: No further recommendations at this point. Thank you for allowing us to participate in the care of this patient. At this time, Critical Care Services will sign off on this case. Please feel free to reconsult as needed. Consults & Procedures Consultants: Veda - Martínez/Alfredo
[2018-01-17 07:36] VITALS: BP 124/74; PULSE 75; TEMP 36.8; O2SAT 96
[2018-01-17] MEDS: PANTOprazole SOD 40 MG TAB PO SCH (07:42)
[2018-01-17] MEDS: FUROSEMIDE INJ 40 MG in SYRINGE 0 ML IV SCH (07:42)
[2018-01-17] MEDS: METOPROLOL SUCC 50MG EXT REL TAB PO SCH (07:43)
[2018-01-17] MEDS: RANOLAZINE 500 MG ER TAB PO SCH (07:43)
[2018-01-17] MEDS: SPIRONOLACTONE 25 MG TAB PO SCH (07:43)
[2018-01-17] MEDS: ROSUVASTATIN CALCIUM 20 MG TAB PO SCH (07:44)
[2018-01-17] MEDS: ALLOPURINOL 300 MG TAB PO SCH (07:44)
[2018-01-17] MEDS: ASPIRIN 81 MG ECTAB PO SCH (07:44)
[2018-01-17] MEDS: HEPARIN SOD 5000 UNIT/0.5 ML CARP SQ SCH (07:50)
--- NOTE | 2018-01-17 10:48 | PROGRESS NOTE ---
DATE: 01/17/2018 CARDIOLOGY FOLLOWUP NOTE The patient was seen and examined. Chart, medications, telemetry reviewed. SUBJECTIVE: The patient notes improvement since hospitalization with marked diuresis. Notes he has now been ambulatory in the hallway without worsening shortness of breath. Denies any chest pains. Notes no tachy palpitations. Notes no dizziness or lightheadedness. Weight is down 6 kg. Notes no productive cough. Notes no fevers or chills. OBJECTIVE: VITAL SIGNS: Heart rate is 75, blood pressure is 124/74, O2 saturation is 96% on 2 L nasal cannula. NECK: Thick. There is no distinct jugular venous distention. LUNGS: Reveal mildly decreased basilar breath sounds, but otherwise clear air zamora. CARDIOVASCULAR EXAMINATION: Regular. There is no audible murmur or rub. There is no S3 gallop. ABDOMEN: Soft, nontender. EXTREMITIES: Without cyanosis or clubbing. There is trace pedal edema only. DATA: Telemetry reveals no arrhythmias. IMPRESSION: A 72-year-old male with issues as follows: Acute systolic heart failure with exacerbation secondary to underlying pulmonary issues as well with chronic ischemic heart disease. RECOMMENDATIONS: We will switch furosemide to oral, continue antianginal and standard cardiac medications. Oxygen supplementation will be reassessed. The patient trending towards return to home. Discussed options of management including medical management versus diagnostic cardiac catheterization and reassessment of coronary anatomy. The patient once again agrees medical management will be appropriate. We anticipate close clinical followup post-hospital discharge.
[2018-01-17 11:45] VITALS: BP 108/71; PULSE 83; TEMP 36.6; O2SAT 96
[2018-01-17] MEDS ORDERED: ASPI-320 PO (14:32)
[2018-01-17] MEDS ORDERED: TPRSR50 PO (14:32)
[2018-01-17] MEDS ORDERED: POTA10CA28 PO (14:32)
[2018-01-17] MEDS ORDERED: ROSU40TA PO (14:32)
[2018-01-17] MEDS ORDERED: RNXER500 PO (14:32)
[2018-01-17] MEDS ORDERED: LSX40 PO (14:32)
[2018-01-17] MEDS ORDERED: SPR25 PO (14:32)
--- NOTE | 2018-01-17 14:51 | Progress Note ---
Internal Med Progress Note Date of Service: Jan 17, 2018. Provider Documentation: Subjective Patient reports breathing is better today. He walked with the respiratory therapist and determined today that he while he still need oxygen with ambulation the patient does not require discharge home oxygen for when he is at rest. Patient also seen by cardiology and determined that he can be off IV Lasix. Lasix switch as oral form Physical exam General; no acute distress Head: Normocephalic Atraumatic. Eyes: EOMI, conjunctiva and sclera clear Neck: Supple.No JVD. Respiratory: no wheezing, no use of accessory muscles, mildly decreased basilar breath sounds, but otherwise clear air zamora. Cardiovascular: Reg rate and rhythm. S1 and S2 noted. No murmurs, rubs, gallops Abdomen: Normal bowel sounds, soft nontender. no abdominal bruits. Extremities: trace pedal edema only Neuro: No focal deficits ASSESSMENT & PLAN: 72 year old M who was recently discharged from [facility] on 12/29/17 under [facility] group after he was treated for pneumonia with also echocardiogram of grade 2 diastolic dysfunction and discharged with oral antibiotic and transferred from [facility] for worsening acute respiratory failure and transferred to the ICU of [facility] on 01/11/18. Transferred out of ICU on 01/13/18 -Echocardiogram 01/12/18 There is an anteroseptal wall motion abnormality with hypokinesis to akinesis of the segments and extending to the apex. There is hypokinesis to akinesis of the inferoseptum. Mild left ventricular systolic dysfunction is present with a qualitative ejection fraction of 40-45%. Compared to the prior echocardiogram images performed on 12/28/17 which were reviewed in comparison inferoseptal wall motion appears to be worse and there has been a subtle decline in the ejection fraction. -CXR 01/13/18: "Unchanging diffuse right hemithoracic infiltrative change. Infiltrative change left base slightly progressive laterally. Mild stable cardiomegaly. IMPRESSION: Stable to slightly progressive parenchymal infiltrative change versus atypical pulmonary edema" CXR 01/15/18: "1. Cardiomegaly with mild pulmonary vascular congestion. This has improved from 01/13/2018. 2. Advanced emphysema. 3. Patchy airspace opacities are seen in the mid to lower lungs. This likely represents an infectious/ inflammatory pneumonitis. Clinical correlation will be required." Plan: RESPIRATORY / CARDIAC -Acute respiratory failure with hypoxia secondary to CHF exacerbation CHF exacerbation - cardiology service following the patient:Mild, blunt troponin elevation consistent with heart failure decompensation, however, has new anteroseptal T wave inversion in lead V2 . Echo reveals chronic anteroseptal WMA, now with extension to inferoseptum worse than earlier this month. medical management at this time instead of cardiac cath - Continue IV furosemide and aldactone, Continue metoprolol succinate, Continue aspirin, rosuvastatin, ranexa. - CXR on 01/15/18 shows greater decrease in pulmonary congestion and patient is losing water weight and reduced leg edema secondary to the IV Lasix. The patchy lung opacities in the mid to lower lung zamora is read radiographically as a pneumonitis. At issue is whether this infectious or inflammatory - the process is unlikely to be infectious given lack of fever and previous treatments prior to this hospital admission on antibiotics. - as per cardiology notes on 01/14/18: If patient has refractory symptoms to medication therapy, would have low threshold for proceeding with high risk cardiac catheterization with history of complex anatomy including CABG and remote left main stenting - cardiology note 01/17/18: advises to switch to oral Lasix for discharge Other Cardiac history of CAD with CABG and PCI: continue aspirin, statin, beta mari Patient had a 2 Step test done by respiratory therapist on 01/15/18 and at that time it was determined that patient would need oxygen on both with ambulation and at rest. Another 2 step test performed on 01/17/18 showed improvements: Results of 2 Step Exercise Test "Pt requires 5L of oxygen during ambulation, None at rest" Patient has smoking history in the past and a known Right lower lobe nodule in the superior segment measuring approximately less than a centimeter. -outpatient follow up Discharge plans and instructions Patient is to be discharged with home oxygen to be used at 5 liter/minute with ambulation 01/21/2018 1:00 PM Magnus Schaefer PA-C Cardiology, [facility] 01/24/2018 3:00 PM Hernando Arroyo DO General Internal Medicine [facility] Patient should follow up with the primary care doctor and cardiology service for adjustment of home medications such as the 40 mg BID Lasix, will need potassium levels checked whiled on high dose Lasix, and right lower lobe nodule of the lung Vital Signs: Date Time Temp Pulse Resp B/P (MAP) Pulse Ox O2 Delivery O2 Flow Rate FiO2 01/17/18 12:00 Nasal Cannula 2.0 01/17/18 11:45 36.6 83 18 108/71 (83) 96 01/17/18 08:00 Nasal Cannula 2.0 01/17/18 07:36 36.8 75 18 124/74 (91) 96 01/17/18 04:00 91 Nasal Cannula 2.0 01/17/18 03:15 36.6 78 21 135/76 (95) 91 Nasal Cannula 2.0 01/17/18 00:00 95 Nasal Cannula 2.0 01/16/18 23:40 36.6 73 20 123/72 (89) 95 Nasal Cannula 2.0 01/16/18 20:00 36.3 87 18 105/64 (78) 97 Nasal Cannula 2.0 01/16/18 20:00 97 Nasal Cannula 2.0 01/16/18 16:00 Nasal Cannula 2.0 01/16/18 15:11 36.5 81 19 100/63 (75) 93 Nasal Cannula 2.0
--- NOTE | 2018-01-17 15:03 | Discharge Instructions ---
Discharge Instructions Date of Service Jan 17, 2018. Admission Reason for Admission: Acute Respiratory Failure With Hypoxia Discharge Discharge Diagnosis / Problem: acute respiratory failure with hypoxia, acute CHF Discharge Goals Goal(s): Decrease discomfort, Improve function, Increase independence, Improve disease control Activity Recommendations Activity Limitations: per Instructions/Follow-up section Shower/Bathe: no limitations . Instructions / Follow-Up Instructions / Follow-Up 72 year old M who was recently discharged from [facility] on 12/29/17 under [facility] hospitalist group after he was treated for pneumonia with also echocardiogram of grade 2 diastolic dysfunction and discharged with oral antibiotic and transferred from [facility] for worsening acute respiratory failure and transferred to the ICU of [facility] on 01/11/18. Transferred out of ICU on 01/13/18 -Echocardiogram 01/12/18 There is an anteroseptal wall motion abnormality with hypokinesis to akinesis of the segments and extending to the apex. There is hypokinesis to akinesis of the inferoseptum. Mild left ventricular systolic dysfunction is present with a qualitative ejection fraction of 40-45%. Compared to the prior echocardiogram images performed on 12/28/17 which were reviewed in comparison inferoseptal wall motion appears to be worse and there has been a subtle decline in the ejection fraction. -CXR 01/13/18: "Unchanging diffuse right hemithoracic infiltrative change. Infiltrative change left base slightly progressive laterally. Mild stable cardiomegaly. IMPRESSION: Stable to slightly progressive parenchymal infiltrative change versus atypical pulmonary edema" CXR 01/15/18: "1. Cardiomegaly with mild pulmonary vascular congestion. This has improved from 01/13/2018. 2. Advanced emphysema. 3. Patchy airspace opacities are seen in the mid to lower lungs. This likely represents an infectious/ inflammatory pneumonitis. Clinical correlation will be required." Plan: RESPIRATORY / CARDIAC -Acute respiratory failure with hypoxia secondary to CHF exacerbation CHF exacerbation - cardiology service following the patient:Mild, blunt troponin elevation consistent with heart failure decompensation, however, has new anteroseptal T wave inversion in lead V2 . Echo reveals chronic anteroseptal WMA, now with extension to inferoseptum worse than earlier this month. medical management at this time instead of cardiac cath - Continue IV furosemide and aldactone, Continue metoprolol succinate, Continue aspirin, rosuvastatin, ranexa. - CXR on 01/15/18 shows greater decrease in pulmonary congestion and patient is losing water weight and reduced leg edema secondary to the IV Lasix. The patchy lung opacities in the mid to lower lung zamora is read radiographically as a pneumonitis. At issue is whether this infectious or inflammatory - the process is unlikely to be infectious given lack of fever and previous treatments prior to this hospital admission on antibiotics. - as per cardiology notes on 01/14/18: If patient has refractory symptoms to medication therapy, would have low threshold for proceeding with high risk cardiac catheterization with history of complex anatomy including CABG and remote left main stenting - cardiology note 01/17/18: advises to switch to oral Lasix for discharge Other Cardiac history of CAD with CABG and PCI: continue aspirin, statin, beta mari Patient had a 2 Step test done by respiratory therapist on 01/15/18 and at that time it was determined that patient would need oxygen on both with ambulation and at rest. Another 2 step test performed on 01/17/18 showed improvements: Results of 2 Step Exercise Test "Pt requires 5L of oxygen during ambulation, None at rest" Patient has smoking history in the past and a known Right lower lobe nodule in the superior segment measuring approximately less than a centimeter. -outpatient follow up Discharge plans and instructions Patient is to be discharged with home oxygen to be used at 5 liter/minute with ambulation 01/21/2018 1:00 PM Magnus Schaefer PA-C Cardiology, [facility] 01/24/2018 3:00 PM Hernando Arroyo DO General Internal Medicine [facility] Patient should follow up with the primary care doctor and cardiology service for adjustment of home medications such as the 40 mg BID Lasix, will need potassium levels checked whiled on high dose Lasix, and right lower lobe nodule of the lung Call your Primary Care doctor if any of the following symptoms or problems start or get worse: * Shortness of breath or difficulty breathing * Wake up at night short of breath * Chest pain * Cough * Swelling of your hands, feet, or legs * More fatigued or tired with your normal activity * Palpitations - sudden fast heart beats WEIGHT * Weigh yourself every morning after using the bathroom. * Use the same scale. * Wear the same amount of clothing. * Write your weight down on a chart. * Call your Primary Care doctor if you gain more than 2-3 pounds in 1-2 days. MEDICATIONS * Use this discharge instruction sheet for medication instructions. * Take your medications at the time your doctor ordered. * Do not skip a dose of your medicines. * If you miss a dose of medicine, take it as soon as possible, but DO NOT DOUBLE A DOSE. * Read your medicine information when you get home. * Know all of the side effects of your medicine. If in doubt, ask your pharmacist * Call your Primary Care doctor's office if you have any side effects. * Be sure all of your doctors know what medicine and herbs you take (including cold, flu, and herbal medicine). Take the following with you to your follow-up doctor appointments: * Weight Chart * Medication List * List of questions Do not drink excessive alcohol, beer or wine. Current Hospital Diet Patient's current hospital diet: AHA Diet (Heart Healthy) Discharge Diet Recommended Diet: AHA Diet (Heart Healthy) Pending Studies Studies pending at discharge: no Laboratory Results 01/14/18 05:27 01/16/18 05:14 Test 01/11/18 17:15 01/11/18 17:36 01/12/18 20:45 01/13/18 05:03 Urine Color YELLOW Urine Appearance TURBID (CLEAR) Urine pH 8.5 (4.5-7.5) Urine Specific Mumford 1.015 (1.000-1.030) Urine Protein NEG (NEG) Urine Glucose (UA) NEG (NEG) Urine Ketones NEG (NEG) Urine Occult Blood NEG (NEG) Urine Nitrite NEG (NEG) Urine Bilirubin NEG (NEG) Urine Urobilinogen NEG (NEG) Urine Leukocyte Esterase NEG (NEG) Urine WBC (Auto) 1-5 /hpf (0-5) Urine RBC (Auto) 0-4 /hpf (0-4) Urine Hyaline Casts (Auto) 1-5 /lpf (0-5) Urine Epithelial Cells (Auto) 10-20 /lpf (0-5) Urine Bacteria (Auto) NEG (NEG) Procalcitonin 0.20 ng/ml (0-0.5) Bedside Glucose 138 mg/dl (70-99) Immature Granulocyte % (Auto) 2.3 % White Blood Count 11.85 K/uL (4.8-10.8) Red Blood Count 4.31 M/uL (4.7-6.1) Hemoglobin 12.9 g/dL (14.0-18.0) Hematocrit 40.0 % (42-52) Mean Corpuscular Volume 92.8 fL (80-100) Mean Corpuscular Hemoglobin 29.9 pg (25-34) Mean Corpuscular Hemoglobin Concent 32.3 g/dl (32-36) Platelet Count 189 K/uL (130-400) Mean Platelet Volume 9.1 fL (7.4-10.4) Neutrophils (%) (Auto) 62.6 % Lymphocytes (%) (Auto) 24.1 % Monocytes (%) (Auto) 8.8 % Eosinophils (%) (Auto) 2.0 % Basophils (%) (Auto) 0.2 % Neutrophils # (Auto) 7.42 K/uL (1.4-6.5) Lymphocytes # (Auto) 2.86 K/uL (1.2-3.4) Monocytes # (Auto) 1.04 K/uL (0.11-0.59) Eosinophils # (Auto) 0.24 K/uL (0-0.5) Basophils # (Auto) 0.02 K/uL (0-0.2) Immature Granulocyte # (Auto) 0.27 K/uL (0.00-0.02) Phosphorus Level 3.7 mg/dl (2.5-4.9) Troponin I 0.068 ng/ml (0-0.045) Test 01/14/18 05:27 01/15/18 08:11 01/16/18 05:14 Red Blood Count 4.37 M/uL (4.7-6.1) Mean Corpuscular Volume 92.4 fL (80-100) Mean Corpuscular Hemoglobin 30.2 pg (25-34) Mean Corpuscular Hemoglobin Concent 32.7 g/dl (32-36) RDW Standard Deviation 48.8 fL (36.4-46.3) RDW Coefficient of Variation 14.6 % (11.5-14.5) Mean Platelet Volume 9.7 fL (7.4-10.4) Direct Bilirubin 0.1 mg/dl (0-0.2) Venous Blood pH 7.37 (7.36-7.41) Venous Blood Partial Pressure CO2 57 mmHg (38.0-50.0) Venous Blood Partial Pressure O2 18 mmHg Venous Blood HCO3 32 mmol/L Venous Blood Oxygen Saturation < 60.0 % Venous Blood Base Excess 4.9 mEq/L Pro-B-Type Natriuretic Peptide 900 pg/ml (0-900) Anion Gap 6.0 mmol/L (3-11) Est Creatinine Clear Calc Drug Dose 75.8 ml/min Estimated GFR () 80.2 Estimated GFR (Non- 69.2 BUN/Creatinine Ratio 25.0 (10-20) Calcium Level 9.0 mg/dl (8.5-10.1) Magnesium Level 2.4 mg/dl (1.8-2.4) Total Bilirubin 0.7 mg/dl (0.2-1) Aspartate Amino Transf (AST/SGOT) 43 U/L (15-37) Alanine Aminotransferase (ALT/SGPT) 51 U/L (12-78) Alkaline Phosphatase 106 U/L (45-117) Total Protein 7.4 gm/dl (6.4-8.2) Albumin 2.4 gm/dl (3.4-5.0) Globulin 5.0 gm/dl (2.5-4.0) Albumin/Globulin Ratio 0.5 (0.9-2) Chemistry Specimen Hemolysis Date/Time Source Procedure Growth Status 01/11/18 16:50 Nasal MRSA DNA Surveillance Screen - Final Specimen Negative for MRSA by DNA Probe Complete Medical Emergencies . Who to Call and When: Call 911 or go to the Emergency Room if: * If at any time you feel your situation is an emergency * You have tightness or pain in your chest that does not go away with rest or Nitroglycerin * You are very short of breath even with rest . Non-Emergent Contact Non-Emergency issues call your: Primary Care Provider, [facility] Tender Sludge Call Non-Emergent contact if: you have any medication questions . . "Provider Documentation" section prepared by Gee Vasquez. .
--- NOTE | 2018-01-17 15:05 | Discharge Summary ---
Discharge Summary Date of Service Jan 17, 2018. Discharge Summary Admission Date: Jan 11, 2018 at 16:44 Discharge Date: Jan 17, 2018 Discharge Disposition: Home Principal Diagnosis: acute respiratory failure with hypoxia, acute CHF Secondary Diagnoses/Problems: Right lower lobe nodule in the superior segment measuring approximately less than a centimeter Medication Reconciliation New Medications: Aspirin (Aspirin EC Low Dose) 81 Mg Ectab 81 MG PO QAM for 30 Days, #30 Furosemide (Furosemide) 40 Mg Tab 40 MG PO BID@0700,1700 for 30 Days, #60 TAB Metoprolol Succinate (Metoprolol Succinate ER) 50 Mg Tabcr 50 MG PO BID for 30 Days, #60 Spironolactone (Spironolactone) 25 Mg Tab 25 MG PO QAM for 30 Days, #30 TAB Changed Medications: Potassium Chloride (Micro-K Ext Rel) 10 Meq Capcr 10 MEQ PO DAILY for 30 Days, #30 TAB 0 Refills (Changed from: BID) Continued Medications: Allopurinol (Allopurinol) 300 Mg Tab 1 TAB PO DAILY Alprazolam (Xanax) 0.5 Mg Tab 1 TAB PO TID PRN for Anxiety/Insomnia for 30 Days, #90 TAB Cholecalciferol (D3 2000) 2,000 Unit Tab 1 TAB PO HS Coenzyme Q10 (Ubidecarenone) (Coq-10) 30 Mg Cap 120 MG PO DAILY Loratadine (Claritin) 10 Mg Tab 10 MG PO DAILY PRN for Seasonal Allergies, TAB Omeprazole (Prilosec) 20 Mg Cap 20 MG PO DAILY, CAP Ranolazine (Ranexa) 500 Mg Tabcr 1 TAB PO BID for 30 Days, #60 TAB (This prescription has been renewed) Rosuvastatin Calcium (Crestor) 40 Mg Tab 40 MG PO HS for 30 Days, #30 TAB (This prescription has been renewed) Discontinued Medications: Aspirin (Aspir-81) 81 Mg Tab 1 TAB PO DAILY for 90 Days, #90 TAB 3 Refills Atenolol (Tenormin) 50 Mg Tab 1 TAB PO PM Atenolol (Tenormin) 50 Mg Tab 100 MG PO QAM, TAB Furosemide (Lasix) 40 Mg Tab 40 MG PO DAILY, 0 Refills Hydrocodone/Acetaminophen 5MG/325MG ([place] 5MG/325MG) Tab 1 TABLET PO Q6H PRN for Pain, TAB Metolazone (Zaroxolyn) 2.5 Mg Tab 2.5 MG PO WK for 90 Days, #12 TAB Take one every Wednesday Sildenafil Citrate (Viagra) 100 Mg Tab 100 MG PO PRN, TAB Admission Information HPI (per Admitting provider): 72 year old M who was recently discharged from [facility] after he was treated for pneumonia with also echocardiogram of grade 2 diastolic dysfunction and discharged with oral antibiotic and patient reports that was was doing and finished antibiotic course when he became very short of breath. Patient then admitted to [facility] on 01/05/18 in the ICU setting for acute respiratory failure with hypoxia. Patient had echocardiogram there that also showed grade diastolic dysfunction. Patient was treated for acute on chronic congestive heart failure and also received antibiotics at [facility] for pneumonia coverage. Apparently the patient's oxygen requirements recently increased to need high flow nasal cannula and [facility] hospitalist was contacted to accept the patient to the ICU for additional pulmonary support services. [facility] hospitalist accepted the patient the ICU at [facility]. [facility] was then contacted for further management of the patient. Patient seen and examined in the ICU and did not appear to be in acute respiratory distress and is on regular nasal cannula. The patient speaks comfortably and reports that he does not use oxygen at baseline. Lung exam significant for some crackles. Patient has some bilateral lower extremity edema. Patient agrees to further care in the [facility] ICU for now. Physical Exam (per Admitting): General Appearance: no apparent distress Head: normocephalic, atraumatic Eyes: normal inspection, EOMI, sclerae normal ENT: normal ENT inspection, hearing grossly normal, pharynx normal Neck: supple, no JVD, trachea midline Respiratory/Chest: chest non-tender, lungs clear, no respiratory distress, no accessory muscle use, + crackles Cardiovascular: regular rate, rhythm, no JVD, normal peripheral pulses, + pertinent finding (bilateral 1+ lower extremity edema of lower extremities) Abdomen/GI: normal bowel sounds, non tender, soft Back: normal inspection, no muscle spasm, normal range of motion Extremities/Musculoskelatal: normal inspection, no calf tenderness, non- tender, + pedal edema, + swelling (bilateral 1+ edema of lower extremities) Neurologic/Psych: alert, normal mood/affect, oriented x 3 Skin: normal color, warm/dry, no rash Hospital Course 72 year old M who was recently discharged from [facility] on 12/29/17 under [facility] hospitalist group after he was treated for pneumonia with also echocardiogram of grade 2 diastolic dysfunction and discharged with oral antibiotic and transferred from [facility] for worsening acute respiratory failure and transferred to the ICU of [facility] on 01/11/18. Transferred out of ICU on 01/13/18 -Echocardiogram 01/12/18 There is an anteroseptal wall motion abnormality with hypokinesis to akinesis of the segments and extending to the apex. There is hypokinesis to akinesis of the inferoseptum. Mild left ventricular systolic dysfunction is present with a qualitative ejection fraction of 40-45%. Compared to the prior echocardiogram images performed on 12/28/17 which were reviewed in comparison inferoseptal wall motion appears to be worse and there has been a subtle decline in the ejection fraction. -CXR 01/13/18: "Unchanging diffuse right hemithoracic infiltrative change. Infiltrative change left base slightly progressive laterally. Mild stable cardiomegaly. IMPRESSION: Stable to slightly progressive parenchymal infiltrative change versus atypical pulmonary edema" CXR 01/15/18: "1. Cardiomegaly with mild pulmonary vascular congestion. This has improved from 01/13/2018. 2. Advanced emphysema. 3. Patchy airspace opacities are seen in the mid to lower lungs. This likely represents an infectious/ inflammatory pneumonitis. Clinical correlation will be required." Plan: RESPIRATORY / CARDIAC -Acute respiratory failure with hypoxia secondary to CHF exacerbation CHF exacerbation - cardiology service following the patient:Mild, blunt troponin elevation consistent with heart failure decompensation, however, has new anteroseptal T wave inversion in lead V2 . Echo reveals chronic anteroseptal WMA, now with extension to inferoseptum worse than earlier this month. medical management at this time instead of cardiac cath - Continue IV furosemide and aldactone, Continue metoprolol succinate, Continue aspirin, rosuvastatin, ranexa. - CXR on 01/15/18 shows greater decrease in pulmonary congestion and patient is losing water weight and reduced leg edema secondary to the IV Lasix. The patchy lung opacities in the mid to lower lung zamora is read radiographically as a pneumonitis. At issue is whether this infectious or inflammatory - the process is unlikely to be infectious given lack of fever and previous treatments prior to this hospital admission on antibiotics. - as per cardiology notes on 01/14/18: If patient has refractory symptoms to medication therapy, would have low threshold for proceeding with high risk cardiac catheterization with history of complex anatomy including CABG and remote left main stenting - cardiology note 01/17/18: advises to switch to oral Lasix for discharge Other Cardiac history of CAD with CABG and PCI: continue aspirin, statin, beta mari Patient had a 2 Step test done by respiratory therapist on 01/15/18 and at that time it was determined that patient would need oxygen on both with ambulation and at rest. Another 2 step test performed on 01/17/18 showed improvements: Results of 2 Step Exercise Test "Pt requires 5L of oxygen during ambulation, None at rest" Patient has smoking history in the past and a known Right lower lobe nodule in the superior segment measuring approximately less than a centimeter. -outpatient follow up Discharge plans and instructions Patient is to be discharged with home oxygen to be used at 5 liter/minute with ambulation 01/21/2018 1:00 PM Magnus Schaefer PA-C Cardiology [facility] 01/24/2018 3:00 PM Hernando Arroyo DO General Internal Medicine [facility] Patient should follow up with the primary care doctor and cardiology service for adjustment of home medications such as the 40 mg BID Lasix, will need potassium levels checked whiled on high dose Lasix, and right lower lobe nodule of the lung Total time spent on discharge = 40 minutes This includes examination of the patient, discharge planning, medication reconciliation, and communication with other providers. Discharge Instructions Discharge plans and instructions Patient is to be discharged with home oxygen to be used at 5 liter/minute with ambulation 01/21/2018 1:00 PM LUIS Esparza [facility] 01/24/2018 3:00 PM Hernando Arroyo DO General Internal Medicine [facility] Patient should follow up with the primary care doctor and cardiology service for adjustment of home medications such as the 40 mg BID Lasix, will need potassium levels checked whiled on high dose Lasix, and right lower lobe nodule of the lung Call your Primary Care doctor if any of the following symptoms or problems start or get worse: Shortness of breath or difficulty breathing Wake up at night short of breath Chest pain Cough Swelling of your hands, feet, or legs More fatigued or tired with your normal activity Palpitations - sudden fast heart beats WEIGHT Weigh yourself every morning after using the bathroom. Use the same scale. Wear the same amount of clothing. Write your weight down on a chart. Call your Primary Care doctor if you gain more than 2-3 pounds in 1-2 days. MEDICATIONS Use this discharge instruction sheet for medication instructions. Take your medications at the time your doctor ordered. Do not skip a dose of your medicines. If you miss a dose of medicine, take it as soon as possible, but DO NOT DOUBLE A DOSE. Read your medicine information when you get home. Know all of the side effects of your medicine. If in doubt, ask your pharmacist Call your Primary Care doctor's office if you have any side effects. Be sure all of your doctors know what medicine and herbs you take (including cold, flu, and herbal medicine). Take the following with you to your follow-up doctor appointments: Weight Chart Medication List List of questions Do not drink excessive alcohol, beer or wine.
[2018-01-17 15:13] VITALS: BP 108/71; PULSE 83; TEMP 36.6; O2SAT 96
[2018-01-18] MEDS ORDERED: FUROSEMIDE 40 MG TAB PO SCH (07:00)
== END 2018-01-17 15:30 | disposition home or self-care (01) | DRG 291 ==
LOC: C.MSICU 16:44 → C.2T 01-13 11:01
PROVIDERS: ADMIT Hospitalist; ATTEND Hospitalist
DX: I11.0 Hypertensive heart disease with heart failure (principal); J96.01 Acute respiratory failure with hypoxia; I50.21 Acute systolic (congestive) heart failure; I25.10 Atherosclerotic heart disease of native coronary artery without angina pectoris; M10.9 Gout, unspecified; Z79.82 Long term (current) use of aspirin; Z79.899 Other long term (current) drug therapy; Z87.891 Personal history of nicotine dependence; Z88.2 Allergy status to sulfonamides; Z95.1 Presence of aortocoronary bypass graft; Z87.01 Personal history of pneumonia (recurrent)

== ENCOUNTER 2018-02-08 14:51 | Inpatient (IN) | payer OTHER ==
[~2018-02-08] VITALS: Ht 177.8 cm; Wt 95.7 kg
[~2018-02-08 14:51] MED LIST changes: -ASPI-232 PO; +ASPI-320 PO; -ATEN50TA PO; -FRS/40 PO; -HYDR-5688 PO; +LSX40 PO; -METO2.5T PO; -SILD100T PO; +SPR25 PO; +TPRSR50 PO
[2018-02-08] MEDS ORDERED: SODIUM CHLORIDE 0.9% 1000ML 1,000 ML IV SCH (15:30)
[2018-02-08] MEDS ORDERED: SODIUM CHLORIDE 0.9% 250ML 250 ML IV ONE (15:30)
[2018-02-08 16:52] LABS: ALBUMIN 2.2 gm/dl (3.4-5.0); CALCIUM 9.9 mg/dl (8.5-10.1); CREATININE 1.6 mg/dl (0.60-1.40); POTASSIUM 4.2 mmol/L (3.5-5.1)
--- NOTE | 2018-02-08 17:01 | DIAGNOSTIC IMAGING REPORT ---
CHEST ONE VIEW PORTABLE CLINICAL HISTORY: 72 years-old Male presenting with SOB, hypoxia, chronic. TECHNIQUE: Portable upright AP view of the chest was obtained. COMPARISON: 01/15/2018. FINDINGS: Median sternotomy wires and mediastinal surgical clips noted. Atherosclerosis of aortic arch. Cardiac silhouette enlarged. Pulmonary vascular prominence. Heterogeneity of lung parenchyma. Interval decrease in mid to basilar predominant right lung opacities. Persistent left basilar opacities. Small pleural effusions may be present. No large pneumothorax. Degenerative changes of the thoracic spine. Posttraumatic deformity of the right clavicle. Degenerative changes of the left glenohumeral joint. Cholecystectomy clips noted. Additional surgical clips project over the epigastrium. IMPRESSION: 1. Cardiomegaly with volume overload/congestive change. Developing pulmonary edema is difficult to exclude. 2. Interval evolution of previous infiltrates at the lung bases, decreased on the right and stable to increased on the left. Electronically signed by: Jonathan Dean M.D. 02/08/2018 5:00 PM Dictated Date/Time: 02/08/2018 4:58 PM
--- NOTE | 2018-02-08 17:06 | EMERGENCY ROOM VISIT NOTE ---
History First contact with patient: 14:55 Chief Complaint: SHORTNESS OF BREATH Stated Complaint: EVAL Nursing Triage Summary: pt w/ pna since December. pt in f/u appt today @ [facility]. pt instructed to come here for SOB by . pt currently on 5 liters chronically. O2 sat 72% on RA. History of Present Illness 72M who presents to the Emergency Room with complaints of SOB x 3 weeks, starting almost immediately after his last hospital discharge for CHF. Patient is accompanied by his . Pt states that he was given home oxygen and is wearing it whenever he is not in bed. He states that his SOB is getting much worse. He states he is compliant with all of his medications but states he thinks he's dehydrated because when he pees only a little bit comes out. He does not check his daily weight because he states he doesn't have enough energy. Shx: Denies chewing, former smoker quit at age 32. Review of Systems See HPI for pertinent positives and negatives. A total of ten systems were reviewed and were otherwise negative. Constitutional: No fever, No chills Respiratory: + shortness of breath, No cough, No sputum, No wheezing, No dyspnea on exertion Cardiovascular: No chest pain Abdomen: No pain, No nausea, No vomiting, No diarrhea, No constipation Musculoskeletal: No joint pain Genitourinary - Male: No hematuria Past Medical/Surgical History Medical Problems: (1) Acute respiratory failure with hypoxia (2) Anxiety (3) CAD (coronary artery disease) (4) Gout (5) H/O carcinoma of bladder (6) HLD (hyperlipidemia) (7) Left carotid stenosis (8) Osteoarthritis (9) Pneumonia (10) Systolic and diastolic CHF, chronic Surgical Problems: (1) H/O heart artery stent Family History Diabetes mellitus FH: heart disease Social History Smoking Status: Former Smoker Marital Status: Housing Status: lives with significant other Occupation Status: retired Current/Historical Medications Scheduled Allopurinol (Zyloprim), 300 MG PO QAM Aspirin (Aspirin Ec), 81 MG PO QAM Cholecalciferol (Vitamin D3), 2,000 UNITS PO QPM Coenzyme Q10 (Ubidecarenone) (Co Q-10), 120 MG PO QPM Furosemide (Lasix), 40 MG PO BID Metoprolol Succinate (Toprol Xl), 75 MG PO BID Omeprazole (Prilosec), 20 MG PO DAILY Potassium Chloride (Micro-K Ext Rel), 10 MEQ PO DAILY Ranolazine (Ranexa), 500 MG PO BID Rosuvastatin Calcium (Crestor), 40 MG PO HS Spironolactone (Aldactone), 25 MG PO QAM Scheduled PRN Alprazolam (Xanax), 1 TAB PO TID PRN for Anxiety/Insomnia Loratadine (Claritin), 10 MG PO DAILY PRN for Seasonal Allergies Physical Exam Vital Signs Date Time Temp Pulse Resp B/P (MAP) Pulse Ox O2 Delivery O2 Flow Rate FiO2 02/08/18 18:16 82 18 100/61 96 Nasal Cannula 4.0 02/08/18 17:34 83 18 105/62 97 Room Air 02/08/18 16:23 90 18 107/62 96 Nasal Cannula 5.0 02/08/18 15:03 87 02/08/18 15:02 96 Nasal Cannula 02/08/18 14:59 Room Air 02/08/18 14:59 36.4 20 18 99/80 72 Room Air Physical Exam Gen: wearing oxygen, appears ill. HEENT: Head - normocephalic and atraumatic. Pupils are equal, round, and reactive to light. Extraocular eye muscles are intact and sclera are anicteric. Nose - moist nasal mucosa without discharge. Mouth - moist buccal mucosa. Oropharynx is nonerythematous and there is no tonsillar exudate or edema noted. Neck: Supple; no JVD, nuchal rigidity, cervical lymphadenopathy, or auscultated bruits. Heart: Regular rate and rhythm. There is a normal S1 and S2 with no murmurs, clicks, or gallops appreciated. Scar on the sternum. Lungs: Crackles in the lung bases bilaterally. Abdomen: Soft, completely nontender, nondistended, with good bowel sounds. There are no palpable pulsatile masses or hepatosplenomegaly. There is no guarding, rigidity, or rebound noted. Extremities: 2+ pitting edema in the LLE, 1+ in the RLE. Neuro:The patient is awake and alert, oriented to day, time, and place. Muscle strength is 5/5 in all 4 extremities. The patient has equal drop forge hand strength and equal pedal push and pull. There are no cerebellar signs. Medical Decision & Procedures ER Provider Diagnostic Interpretation: CHEST ONE VIEW PORTABLE CLINICAL HISTORY: 72 years-old Male presenting with SOB, hypoxia, chronic. TECHNIQUE: Portable upright AP view of the chest was obtained. COMPARISON: 01/15/2018. FINDINGS: Median sternotomy wires and mediastinal surgical clips noted. Atherosclerosis of aortic arch. Cardiac silhouette enlarged. Pulmonary vascular prominence. Heterogeneity of lung parenchyma. Interval decrease in mid to basilar predominant right lung opacities. Persistent left basilar opacities. Small pleural effusions may be present. No large pneumothorax. Degenerative changes of the thoracic spine. Posttraumatic deformity of the right clavicle. Degenerative changes of the left glenohumeral joint. Cholecystectomy clips noted. Additional surgical clips project over the epigastrium. IMPRESSION: 1. Cardiomegaly with volume overload/congestive change. Developing pulmonary edema is difficult to exclude. 2. Interval evolution of previous infiltrates at the lung bases, decreased on the right and stable to increased on the left. [~ rep ct add3]] (CHEST) THORAX WITHOUT CLINICAL HISTORY: 72 years-old Male presenting with elevated WBC, SOB, hypoxia, ? PNA. TECHNIQUE: Multidetector CT imaging of the chest was performed without the use of intravenous contrast. IV contrast: None. A dose lowering technique was used consistent with the principles of ALARA (as low as reasonably achievable). COMPARISON: 12/27/2017 and chest x-ray performed on 02/08/2018. CT DOSE (mGy.cm): The estimated cumulative dose is 615.37 mGy.cm. FINDINGS: Grain Spouter topogram: Median sternotomy wires and surgical clips noted. On soft tissue windows, bilateral gynecomastia. Normal thyroid. Several prominent subcentimeter mediastinal lymph nodes, likely reactive and benign in morphology. Evaluation of the emily limited without intravenous contrast. Atherosclerosis of the aorta. Postsurgical changes of coronary artery bypass grafting. Patency of graft vessels cannot be assessed in the absence of intravenous contrast. Coronary artery calcification. Top normal heart size. No pericardial or pleural effusion. Cholelithiasis. Physiologic distention of the gallbladder. Normal liver density. On lung windows, centrilobular and paraseptal emphysematous changes with an apical predominance again noted. There is diffuse increased density of the lungs which has significantly worsened from prior. Bronchial arteries are not significantly enlarged relative to their adjacent bronchi though smooth interlobular septal thickening is suggested at the lung bases. The previously noted reticulonodular infiltrates are no longer as discretely apparent, including the 1.4 cm previously noted nodular density in the right lower lobe. Central airways demonstrate layering debris in the right mainstem bronchus. Dependent subpleural consolidation and reticulation with bronchiectasis in the bilateral lower lobes at the lung bases. On bone windows, degenerative changes of the spine. IMPRESSION: 1. Interval development of diffuse lung infiltrates evidenced by diffuse added density of the lungs. This is concerning for active inflammation or acute atypical pneumonia. Less likely this may represent pulmonary edema. 2. Resolution of prior reticulonodular infiltrates, including a 1.4 cm right lower lobe nodular consolidation. 3. Background apical predominant emphysematous changes. 4. Findings could suggest chronic aspiration. Additionally, evidence of layering debris in the right mainstem bronchus further raises concern for aspiration. 5. Post surgical changes of coronary artery bypass. Laboratory Results 02/08/18 16:10 Red Blood Count 4.08, Mean Corpuscular Volume 91.2, Mean Corpuscular Hemoglobin 28.7, Mean Corpuscular Hemoglobin Concent 31.5, Mean Platelet Volume 9.4, Neutrophils (%) (Auto) 73.4, Lymphocytes (%) (Auto) 13.7, Monocytes (%) (Auto) 8.6, Eosinophils (%) (Auto) 2.8, Basophils (%) (Auto) 0.2, Neutrophils # (Auto) 10.92, Lymphocytes # (Auto) 2.03, Monocytes # (Auto) 1.27, Eosinophils # (Auto) 0.41, Basophils # (Auto) 0.03 02/08/18 16:10 Test 02/08/18 16:10 02/08/18 17:32 02/08/18 18:30 White Blood Count 14.85 K/uL (4.8-10.8) Red Blood Count 4.08 M/uL (4.7-6.1) Hemoglobin 11.7 g/dL (14.0-18.0) Hematocrit 37.2 % (42-52) Mean Corpuscular Volume 91.2 fL (80-100) Mean Corpuscular Hemoglobin 28.7 pg (25-34) Mean Corpuscular Hemoglobin Concent 31.5 g/dl (32-36) Platelet Count 341 K/uL (130-400) Mean Platelet Volume 9.4 fL (7.4-10.4) Neutrophils (%) (Auto) 73.4 % Lymphocytes (%) (Auto) 13.7 % Monocytes (%) (Auto) 8.6 % Eosinophils (%) (Auto) 2.8 % Basophils (%) (Auto) 0.2 % Neutrophils # (Auto) 10.92 K/uL (1.4-6.5) Lymphocytes # (Auto) 2.03 K/uL (1.2-3.4) Monocytes # (Auto) 1.27 K/uL (0.11-0.59) Eosinophils # (Auto) 0.41 K/uL (0-0.5) Basophils # (Auto) 0.03 K/uL (0-0.2) RDW Standard Deviation 52.6 fL (36.4-46.3) RDW Coefficient of Variation 15.8 % (11.5-14.5) Immature Granulocyte % (Auto) 1.3 % Immature Granulocyte # (Auto) 0.19 K/uL (0.00-0.02) Anion Gap 5.0 mmol/L (3-11) Est Creatinine Clear Calc Drug Dose 51.7 ml/min Estimated GFR () 49.9 Estimated GFR (Non- 43.0 BUN/Creatinine Ratio 16.1 (10-20) Calcium Level 9.9 mg/dl (8.5-10.1) Magnesium Level 2.8 mg/dl (1.8-2.4) Total Bilirubin 0.6 mg/dl (0.2-1) Aspartate Amino Transf (AST/SGOT) 35 U/L (15-37) Alanine Aminotransferase (ALT/SGPT) 31 U/L (12-78) Alkaline Phosphatase 158 U/L (45-117) Pro-B-Type Natriuretic Peptide 1087 pg/ml (0-900) Total Protein 9.0 gm/dl (6.4-8.2) Albumin 2.2 gm/dl (3.4-5.0) Globulin 6.8 gm/dl (2.5-4.0) Albumin/Globulin Ratio 0.3 (0.9-2) Procalcitonin 0.13 ng/ml (0-0.5) Bedside Troponin I < 0.030 ng/ml (0-0.045) Medications Administered Medications (Trade) Dose Ordered Sig/Janine Route Start Time Stop Time Status Last Admin Dose Admin Sodium Chloride 250 ml @ 999 mls/hr Q16M ONCE IV 02/08/18 15:30 02/08/18 15:45 DC 02/08/18 15:30 999 MLS/HR Sodium Chloride 1,000 ml @ 125 mls/hr Q8H IV 02/08/18 15:30 02/08/18 18:37 DC 02/08/18 16:26 125 MLS/HR Procedure EKG Sinus rhythm with occasional Premature ventricular complexes Otherwise normal ECG When compared with ECG of 14-JAN-2018 06:29, Nonspecific T wave abnormality no longer evident in Anterior leads Medical Decision The patient's care and disposition was discussed with Dr. Tapia, Attending ED Physician. This is a 72M with SOB. Differential diagnosis include pneumonia, bronchitis, pneumothorax, pulmonary embolism, congestive heart failure, acute coronary syndrome. Triage Nursing notes were reviewed. ED Course included an extensive history and physical exam, labs and Xray. Patient has a worse oxygen requirement than from discharge from hospital 3 weeks prior. Labs show leukocytosis. Creatinine is elevated. X-ray is suggested of pulm edema and CT Scan suggests pneumonia. Procal negative. It appears that the patient has an acute worsening of his CHF. No EKG changes. BNP is elevated but appears to be at baseline. He does now have a new onset HILARY but this may be his new normal on Lasix. Patient has difficulty standing and walking even with oxygen. Appears ill. 3:00 pm - Pt was seen and examined by resident. 3:30pm - Discussed case with attending and initial orders were placed. 5:30pm - Case discussed with Jericho BADILLO. 6:00pm - Case discussed with Dr. Vasquez and patient will be taken for admission. The pt was informed about the findings as listed above. All questions were answered. Head Trauma GCS Score: 15 Impression Primary Impression: Acute respiratory failure with hypoxia Additional Impression: Congestive heart failure Departure Information Dispostion Rehab Inpatient Facility Condition POOR Referrals Hernando Arroyo D.O. (PCP) Patient Instructions My [facility] Resident Involvement: Resident Care Provided Care Provided: Adult ED Problem Qualifiers
[2018-02-08 17:27] LABS: BASO % 0.2 %; BASO ABS # 0.03 K/uL (0-0.2); EOS % 2.8 %; EOS ABS # 0.41 K/uL (0-0.5); HEMATOCRIT 37.2 % (42-52); HEMOGLOBIN 11.7 g/dL (14.0-18.0); IG# 0.19 K/uL (0.00-0.02); LYMPH % 13.7 %; LYMPH ABS # 2.03 K/uL (1.2-3.4); MEAN CELL VOLUME 91.2 fL (80-100); MEAN CORPUSCULAR HEMOGLOBIN 28.7 pg (25-34); MEAN CORPUSCULAR HGB CONC 31.5 g/dl (32-36); MEAN PLATELET VOLUME 9.4 fL (7.4-10.4); MONO % 8.6 %; MONO ABS # 1.27 K/uL (0.11-0.59); NEUT % 73.4 %; NEUT ABS # 10.92 K/uL (1.4-6.5); PLATELET COUNT 341 K/uL (130-400); RED CELL DISTRIBUTION WIDTH CV 15.8 % (11.5-14.5); RED CELL DISTRIBUTION WIDTH SD 52.6 fL (36.4-46.3); WHITE BLOOD COUNT 14.85 K/uL (4.8-10.8)
[2018-02-08] MEDS ORDERED: ALLO300T2 PO (17:43)
[2018-02-08] MEDS ORDERED: COEN120C PO (17:43)
[2018-02-08] MEDS ORDERED: CHOL2000 PO (17:43)
[2018-02-08] MEDS ORDERED: POTA10CA28 PO (17:43)
[2018-02-08] MEDS ORDERED: FURO40TA3 PO (17:43)
[2018-02-08] MEDS ORDERED: METO-217 PO (17:43)
[2018-02-08] MEDS ORDERED: ASPI81TA28 PO (17:43)
[2018-02-08] MEDS ORDERED: ROSU40TA PO (17:43)
[2018-02-08] MEDS ORDERED: RANO500T PO (17:43)
[2018-02-08] MEDS ORDERED: SPIR25TA PO (17:43)
--- NOTE | 2018-02-08 18:15 | DIAGNOSTIC IMAGING REPORT ---
(CHEST) THORAX WITHOUT CLINICAL HISTORY: 72 years-old Male presenting with elevated WBC, SOB, hypoxia, ? PNA. TECHNIQUE: Multidetector CT imaging of the chest was performed without the use of intravenous contrast. IV contrast: None. A dose lowering technique was used consistent with the principles of ALARA (as low as reasonably achievable). COMPARISON: 12/27/2017 and chest x-ray performed on 02/08/2018. CT DOSE (mGy.cm): The estimated cumulative dose is 615.37 mGy.cm. 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 On soft tissue windows, bilateral gynecomastia. Normal thyroid. Several prominent subcentimeter mediastinal lymph nodes, likely reactive and benign in morphology. Evaluation of the emily limited without intravenous contrast. Atherosclerosis of the aorta. Postsurgical changes of coronary artery bypass grafting. Patency of graft vessels cannot be assessed in the absence of intravenous contrast. Coronary artery calcification. Top normal heart size. No pericardial or pleural effusion. Cholelithiasis. Physiologic distention of the gallbladder. Normal liver density. On lung windows, centrilobular and paraseptal emphysematous changes with an apical predominance again noted. There is diffuse increased density of the lungs which has significantly worsened from prior. Bronchial arteries are not significantly enlarged relative to their adjacent bronchi though smooth interlobular septal thickening is suggested at the lung bases. The previously noted reticulonodular infiltrates are no longer as discretely apparent, including the 1.4 cm previously noted nodular density in the right lower lobe. Central airways demonstrate layering debris in the right mainstem bronchus. Dependent subpleural consolidation and reticulation with bronchiectasis in the bilateral lower lobes at the lung bases. On bone windows, degenerative changes of the spine. IMPRESSION: 1. Interval development of diffuse lung infiltrates evidenced by diffuse added density of the lungs. This is concerning for active inflammation or acute atypical pneumonia. Less likely this may represent pulmonary edema. 2. Resolution of prior reticulonodular infiltrates, including a 1.4 cm right lower lobe nodular consolidation. 3. Background apical predominant emphysematous changes. 4. Findings could suggest chronic aspiration. Additionally, evidence of layering debris in the right mainstem bronchus further raises concern for aspiration. 5. Post surgical changes of coronary artery bypass. Electronically signed by: Jonathan Dean M.D. 02/08/2018 6:14 PM Dictated Date/Time: 02/08/2018 6:06 PM
--- NOTE | 2018-02-08 18:28 | EMERGENCY ROOM VISIT NOTE ---
ED Visit Note First contact with patient: 14:54 Resident Physician Supervision Note: I interviewed and examined the patient. Discussed with Dr. Jacobs and agree with findings and plan as documented in the note. Any exceptions or clarifications are listed here: [None] This patient was evaluated and appeared to be chronically ill. The patient does have an increased oxygen requirement on exertion. At rest he does seem to be maintaining his oxygenation. Chest x-ray is concerning for pulmonary edema although the patient is not behaving as a CHF. He is able to lie flat without increased discomfort. Patient does have some acute kidney injury, likely due to his recent Lasix therapy. Creatinine is 1.6 today. Case was discussed with the hospitalist service and a noncontrast CT scan of the chest was agreed upon. This study was performed and reveals new infiltrative changes diffusely consistent with an atypical pneumonia versus chronic aspiration. This time antibiotics have been deferred to Dr. Vasquez who is at the patient's bedside. There is no evidence of an acute septic picture currently. The patient will be admitted by the hospitalists for further management. Diagnosis: Hypoxia with increased oxygen requirement, bilateral pneumonia Documented By: Hellen Tapia IMPRESSION: 1. Interval development of diffuse lung infiltrates evidenced by diffuse added density of the lungs. This is concerning for active inflammation or acute atypical pneumonia. Less likely this may represent pulmonary edema. 2. Resolution of prior reticulonodular infiltrates, including a 1.4 cm right lower lobe nodular consolidation. 3. Background apical predominant emphysematous changes. 4. Findings could suggest chronic aspiration. Additionally, evidence of layering debris in the right mainstem bronchus further raises concern for aspiration. 5. Post surgical changes of coronary artery bypass. Electronically signed by: Jonathan Dean M.D. 02/08/2018 6:14 PM Dictated Date/Time: 02/08/2018 6:06 PM
[2018-02-08] MEDS ORDERED: VANCOMYCIN IV 1,500 MG in SODIUM CHLORIDE 0.9% 250ML 250 ML IV STA (18:38)
[2018-02-08] MEDS ORDERED: PIPERACILL/TAZOBAC IV 4.5 GM in DEXTROSE 5% 100ML 100 ML IV STA (18:40)
[2018-02-08] MEDS ORDERED: VANCOMYCIN CONSULT ACTIVE PRN (18:45)
[2018-02-08] MEDS ORDERED: PIPERACILL/TAZOBAC CONSULT ACTIVE PRN (18:45)
--- NOTE | 2018-02-08 19:02 | History and Physical ---
History & Physical Date & Time of Service: February 08, 2018 at 18:59 Chief Complaint: EVAL Primary Care Physician: Hernando Arroyo D.O. History of Present Illness Source: patient, family 72 year old M who was recently discharged from [facility] on 12/29/17 under [facility] hospitalist group after he was treated for pneumonia with also echocardiogram of grade 2 diastolic dysfunction and discharged with oral antibiotic and transferred from [facility] for worsening acute respiratory failure and transferred to the ICU of [facility] on 01/11/18. Transferred out of ICU on 01/13/18. Patient was then discharged on 01/21/18. Patient returns to the hospital emergency room on 02/08/18. Patient reports that has been again having more coughing with clear sputum and more dyspnea. Patient reports that he has been as instructed using oxygen with exertion but recently even at rest. Patient reports that he has been using Lasix BID as instructed. He denies worsening lower extremity edema. His lower extremity swelling as seen from last admission is improved. He reports that now when he takes Lasix he does not make a lot of urine. Past Medical/Surgical History Medical Problems: (1) Acute respiratory failure with hypoxia (2) Anxiety (3) Bilateral pneumonia (4) CAD (coronary artery disease) (5) Gout (6) H/O carcinoma of bladder (7) HLD (hyperlipidemia) (8) Left carotid stenosis (9) Osteoarthritis (10) Pneumonia (11) Systolic and diastolic CHF, chronic Surgical Problems: (1) H/O heart artery stent Family History Diabetes mellitus FH: heart disease Social History Smoking Status: Former Smoker Marital Status: Housing status: lives with significant other Occupational Status: retired Immunizations History of Tetanus Vaccine?: 2004 History of Pneumococcal: 2002 History of Hepatitis B Vaccine: No Allergies Coded Allergies: Sulfa Antibiotics (Verified Allergy, Unknown, ., 02/08/18) Home Medications Scheduled Allopurinol (Zyloprim), 300 MG PO QAM Aspirin (Aspirin Ec), 81 MG PO QAM Cholecalciferol (Vitamin D3), 2,000 UNITS PO QPM Coenzyme Q10 (Ubidecarenone) (Co Q-10), 120 MG PO QPM Furosemide (Lasix), 40 MG PO BID Metoprolol Succinate (Toprol Xl), 75 MG PO BID Omeprazole (Prilosec), 20 MG PO DAILY Potassium Chloride (Micro-K Ext Rel), 10 MEQ PO DAILY Ranolazine (Ranexa), 500 MG PO BID Rosuvastatin Calcium (Crestor), 40 MG PO HS Spironolactone (Aldactone), 25 MG PO QAM Scheduled PRN Alprazolam (Xanax), 1 TAB PO TID PRN for Anxiety/Insomnia Loratadine (Claritin), 10 MG PO DAILY PRN for Seasonal Allergies Review of Systems Constitutional: No fever Eyes: No worsening of vision ENT: No nasal symptoms Respiratory: + cough, + sputum, + shortness of breath, + dyspnea on exertion, No wheezing Cardiovascular: No chest pain, No edema, No palpitations Abdomen: No pain, No nausea, No vomiting Musculoskeletal: No joint pain, No muscle pain Genitourinary - Male: + problem reported (less urine output) Neurologic: No numbness/tingling Psychiatric: No substance abuse Endocrine: No excessive urination Hematologic / Lymphatic: No abnormal bleeding/bruising Integumentary: No rash, No itch Physical Exam Vital Signs Date Time Temp Pulse Resp B/P (MAP) Pulse Ox O2 Delivery O2 Flow Rate FiO2 02/08/18 18:16 82 18 100/61 96 Nasal Cannula 4.0 02/08/18 17:34 83 18 105/62 97 Room Air 02/08/18 16:23 90 18 107/62 96 Nasal Cannula 5.0 02/08/18 15:03 87 02/08/18 15:02 96 Nasal Cannula 02/08/18 14:59 Room Air 02/08/18 14:59 36.4 20 18 99/80 72 Room Air General Appearance: no apparent distress Head: normocephalic, atraumatic Eyes: normal inspection, EOMI ENT: normal ENT inspection, hearing grossly normal, pharynx normal Neck: supple, no JVD, trachea midline Respiratory/Chest: chest non-tender, no respiratory distress, no accessory muscle use, + crackles, + pertinent finding (on nasal cannula) Cardiovascular: regular rate, rhythm, no JVD, normal peripheral pulses, + pertinent finding (+1 edema of lower extremities bilaterally) Abdomen/GI: normal bowel sounds, non tender, soft, no organomegaly, no pulsatile mass Back: normal inspection, no muscle spasm, normal range of motion Extremities/Musculoskelatal: normal inspection, no calf tenderness, non-tender Neurologic/Psych: no motor/sensory deficits, alert, normal mood/affect, oriented x 3 Skin: normal color, warm/dry, no rash Diagnostics Laboratory Results Results Past 24 Hours Test 02/08/18 16:10 02/08/18 17:32 02/08/18 18:30 Range/Units White Blood Count 14.85 4.8-10.8 K/uL Red Blood Count 4.08 4.7-6.1 M/uL Hemoglobin 11.7 14.0-18.0 g/dL Hematocrit 37.2 42-52 % Mean Corpuscular Volume 91.2 80-100 fL Mean Corpuscular Hemoglobin 28.7 25-34 pg Mean Corpuscular Hemoglobin Concent 31.5 32-36 g/dl Platelet Count 341 130-400 K/uL Mean Platelet Volume 9.4 7.4-10.4 fL Neutrophils (%) (Auto) 73.4 % Lymphocytes (%) (Auto) 13.7 % Monocytes (%) (Auto) 8.6 % Eosinophils (%) (Auto) 2.8 % Basophils (%) (Auto) 0.2 % Neutrophils # (Auto) 10.92 1.4-6.5 K/uL Lymphocytes # (Auto) 2.03 1.2-3.4 K/uL Monocytes # (Auto) 1.27 0.11-0.59 K/uL Eosinophils # (Auto) 0.41 0-0.5 K/uL Basophils # (Auto) 0.03 0-0.2 K/uL RDW Standard Deviation 52.6 36.4-46.3 fL RDW Coefficient of Variation 15.8 11.5-14.5 % Immature Granulocyte % (Auto) 1.3 % Immature Granulocyte # (Auto) 0.19 0.00-0.02 K/uL Sodium Level 135 136-145 mmol/L Potassium Level 4.2 3.5-5.1 mmol/L Chloride Level 95 98-107 mmol/L Carbon Dioxide Level 35 21-32 mmol/L Anion Gap 5.0 3-11 mmol/L Blood Urea Nitrogen 26 7-18 mg/dl Creatinine 1.60 0.60-1.40 mg/dl Est Creatinine Clear Calc Drug Dose 51.7 ml/min Estimated GFR () 49.9 Estimated GFR (Non- 43.0 BUN/Creatinine Ratio 16.1 10-20 Random Glucose 118 70-99 mg/dl Calcium Level 9.9 8.5-10.1 mg/dl Magnesium Level 2.8 1.8-2.4 mg/dl Total Bilirubin 0.6 0.2-1 mg/dl Aspartate Amino Transf (AST/SGOT) 35 15-37 U/L Alanine Aminotransferase (ALT/SGPT) 31 12-78 U/L Alkaline Phosphatase 158 45-117 U/L Pro-B-Type Natriuretic Peptide 1087 0-900 pg/ml Total Protein 9.0 6.4-8.2 gm/dl Albumin 2.2 3.4-5.0 gm/dl Globulin 6.8 2.5-4.0 gm/dl Albumin/Globulin Ratio 0.3 0.9-2 Procalcitonin 0.13 0-0.5 ng/ml Bedside Troponin I < 0.030 0-0.045 ng/ml Microbiology Results 02/08/18 Blood Culture, Ordered Pending 02/08/18 Blood Culture, Ordered Pending Impression Assessment and Plan 72 year old M who was recently discharged from [facility] on 12/29/17 under [facility]ist group after he was treated for pneumonia with also echocardiogram of grade 2 diastolic dysfunction and discharged with oral antibiotic and transferred from [facility] for worsening acute respiratory failure and transferred to the ICU of [facility] on 01/11/18. Transferred out of ICU on 01/13/18. Patient was then discharged on 01/21/18. Patient returns to the hospital emergency room on 02/08/18. Patient reports that has been again having more coughing with clear sputum and more dyspnea. CT Chest without Contrast 1. Interval development of diffuse lung infiltrates evidenced by diffuse added density of the lungs. This is concerning for active inflammation or acute atypical pneumonia. Less likely this may represent pulmonary edema. 2. Resolution of prior reticulonodular infiltrates, including a 1.4 cm right lower lobe nodular consolidation. 3. Background apical predominant emphysematous changes. 4. Findings could suggest chronic aspiration. Additionally, evidence of layering debris in the right mainstem bronchus further raises concern for aspiration. 5. Post surgical changes of coronary artery bypass Likely Differentials include Pneumonia vs CHF exacerbation Plan Pneumonia vs CHF exacerbation -start broad spectrum antibiotics given recent hospitalizations: Vancomycin and Zosyn -request pulmonary consultation to evaluate whether bronchoscopy needed given recurrent pneumonia admissions in the past 2 months -give diet on admission but keep NPO except medications after midnight incase bronchoscopy deemed to be needed -despite no obvious exacerbation of CHF on physical exam and that patient appears to be less fluid overloaded than December 2017 discharge, there was concern on admission by cardiology service that if symptoms of dyspnea persists , then possible cardiac catheterization may be needed, request cardiology consult evaluation -Echocardiogram 01/12/18 There is an anteroseptal wall motion abnormality with hypokinesis to akinesis of the segments and extending to the apex. There is hypokinesis to akinesis of the inferoseptum. Mild left ventricular systolic dysfunction is present with a qualitative ejection fraction of 40-45%. Compared to the prior echocardiogram images performed on 12/28/17 which were reviewed in comparison inferoseptal wall motion appears to be worse and there has been a subtle decline in the ejection fraction. -Cardiac history of CAD with CABG and PCI: Continue spirolactone, continue metoprolol succinate, Continue aspirin, rosuvastatin, ranexa. -trend troponin, admit to telemetry Fluid Management -at this time it is unclear whether patient should receive IV fluids for pneumonia vs diuretic for CHF -check lactic acid, if elevated then give IV fluids -otherwise patient is not septic and afebrile, then would hold off IV fluids for now and continue home oral lasix -will re-assess by tomorrow and appreciate pulmonary and cardiology recommendations HILARY likely from diuretic use -continue home dose lasix as above, monitor renal function History of recent home oxygen use -Continue oxygen Patient has smoking history in the past but quit for years Allergies to sulfa antibiotics but no known reactions to Lasix Full Code DVT ppx: heparin subc [phone] Resuscitation Status VTE Prophylaxis Will order VTE Prophylaxis: Yes
[2018-02-08] MEDS ORDERED: VANCOMYCIN IV 2,000 MG in SODIUM CHLORIDE 0.9% 500ML 500 ML IV ONE (19:30)
[2018-02-08] MEDS ORDERED: PIPERACILL/TAZOBAC IV 3.375 GM in D5W 100 ML IV ONE (19:30)
--- NOTE | 2018-02-08 19:57 | Pharmacy Progress Note ---
Pharmacy Antibiotic Consult Date of Service: February 08, 2018. Pharmacy Dosing Scope Pharmacy is consulted to initiate vancomycin and zosyn IV dosing therapy, order appropriate labs and adjust drug dose/frequency. Subjective The patient is a 72 year old male admitted on . Objective Height (Feet): 6 Height (Inches): 0 Weight (Kilograms): 96.40 Lab Results (24hrs): Test 02/08/18 16:10 02/08/18 17:32 02/08/18 19:27 White Blood Count 14.85 K/uL (4.8-10.8) Red Blood Count 4.08 M/uL (4.7-6.1) Hemoglobin 11.7 g/dL (14.0-18.0) Hematocrit 37.2 % (42-52) Mean Corpuscular Volume 91.2 fL (80-100) Mean Corpuscular Hemoglobin 28.7 pg (25-34) Mean Corpuscular Hemoglobin Concent 31.5 g/dl (32-36) Platelet Count 341 K/uL (130-400) Mean Platelet Volume 9.4 fL (7.4-10.4) Neutrophils (%) (Auto) 73.4 % Lymphocytes (%) (Auto) 13.7 % Monocytes (%) (Auto) 8.6 % Eosinophils (%) (Auto) 2.8 % Basophils (%) (Auto) 0.2 % Neutrophils # (Auto) 10.92 K/uL (1.4-6.5) Lymphocytes # (Auto) 2.03 K/uL (1.2-3.4) Monocytes # (Auto) 1.27 K/uL (0.11-0.59) Eosinophils # (Auto) 0.41 K/uL (0-0.5) Basophils # (Auto) 0.03 K/uL (0-0.2) RDW Standard Deviation 52.6 fL (36.4-46.3) RDW Coefficient of Variation 15.8 % (11.5-14.5) Immature Granulocyte % (Auto) 1.3 % Immature Granulocyte # (Auto) 0.19 K/uL (0.00-0.02) Sodium Level 135 mmol/L (136-145) Potassium Level 4.2 mmol/L (3.5-5.1) Chloride Level 95 mmol/L (98-107) Carbon Dioxide Level 35 mmol/L (21-32) Anion Gap 5.0 mmol/L (3-11) Blood Urea Nitrogen 26 mg/dl (7-18) Creatinine 1.60 mg/dl (0.60-1.40) Est Creatinine Clear Calc Drug Dose 51.7 ml/min Estimated GFR () 49.9 Estimated GFR (Non- 43.0 BUN/Creatinine Ratio 16.1 (10-20) Random Glucose 118 mg/dl (70-99) Calcium Level 9.9 mg/dl (8.5-10.1) Magnesium Level 2.8 mg/dl (1.8-2.4) Total Bilirubin 0.6 mg/dl (0.2-1) Aspartate Amino Transf (AST/SGOT) 35 U/L (15-37) Alanine Aminotransferase (ALT/SGPT) 31 U/L (12-78) Alkaline Phosphatase 158 U/L (45-117) Pro-B-Type Natriuretic Peptide 1087 pg/ml (0-900) Total Protein 9.0 gm/dl (6.4-8.2) Albumin 2.2 gm/dl (3.4-5.0) Globulin 6.8 gm/dl (2.5-4.0) Albumin/Globulin Ratio 0.3 (0.9-2) Procalcitonin 0.13 ng/ml (0-0.5) Bedside Troponin I < 0.030 ng/ml (0-0.045) Micro Results: Item Value Date Time Blood Culture Ordered 02/08/181942 Blood Pending Blood Culture Received 02/08/181926 Blood Pending Assessment & Plan Patient started on vancomycin and zosyn for possible pneumonia vs CHF exacerbation. Previously hospitalized for pneumonia last month. Blood cultures x 2 are pending. Vancomycin: * LD of vancomycin 2000 mg (~21 mg/kg) iv given in the ED * Will start maintenance dose of vancomycin 1250 mg (~13 mg/kg) iv q 18 hrs to achieve an estimated trough ~15-20 mcg/ml (goal for pneumonia) * Estimated kinetics: t1/2~16 hrs, ke~0.044 hr-1, CrCl ~51 ml/min * Baseline Scr appears closer to 1.1 mg/dL - will wait to order trough, since dose may need adjusted if renal function improves Zosyn: * 3.3.75 gm x 1 given in the ED; will start 3.375 gm iv q 8 hrs (appropriate for CrCl >20 ml/min) Pharmacy will continue to follow and will adjust dose/frequency as necessary. Thank you
[2018-02-08 20:33] VITALS: BP 94/60; PULSE 92; TEMP 36.4; O2SAT 96; Ht 177.8 cm; Wt 95.7 kg
[2018-02-08] MEDS ORDERED: FUROSEMIDE 40 MG TAB PO SCH (21:00)
[2018-02-08] MEDS: METOPROLOL SUCC 50MG EXT REL TAB PO SCH (21:00)
[2018-02-08] MEDS ORDERED: ALBUMIN HUMAN 25% 12.5 GM/50 ML VIAL IV ONE (21:00)
[2018-02-08] MEDS: RANOLAZINE 500 MG ER TAB PO SCH (21:15)
[2018-02-08] MEDS: ROSUVASTATIN CALCIUM 20 MG TAB PO SCH (21:15)
[2018-02-08] MEDS: HEPARIN SOD 5000 UNIT/0.5 ML CARP SQ SCH (21:16)
[2018-02-08] MEDS ORDERED: LEVALBUTEROL/IPRATROPIUM NEB INH STA (21:17)
[2018-02-08 21:20] VITALS: BP 93/56; PULSE 82; O2SAT 96
[2018-02-08] MEDS ORDERED: IPRATROPIUM BROMIDE NEB SOLN 0.02% 2.5 ML VIAL INH STA (21:22)
[2018-02-08] MEDS ORDERED: LEVALBUTEROL 1.25MG/0.5ML NEB INH STA (21:22)
[2018-02-08] MEDS ORDERED: LEVALBUTEROL/IPRATROPIUM NEB INH PRN (21:30)
[2018-02-08] MEDS ORDERED: LEVALBUTEROL 1.25MG/0.5ML NEB INH PRN (21:30)
[2018-02-08] MEDS ORDERED: IPRATROPIUM BROMIDE NEB SOLN 0.02% 2.5 ML VIAL INH PRN (21:30)
[2018-02-08 21:51] VITALS: PULSE 79; O2SAT 97
[2018-02-08 23:35] VITALS: BP 100/62; PULSE 82; TEMP 36.8; O2SAT 94
[2018-02-08 23:59] VITALS: O2SAT 94
[2018-02-09] VITALS (8 sets, daily range): BP systolic 90–127; BP diastolic 52–70; PULSE 70–88; TEMP 36.3–36.6; O2SAT 93–100
[2018-02-09] MEDS ORDERED: PIPERACILL/TAZOBAC IV 3.375 GM in DEXTROSE 5% 100ML 100 ML IV SCH ×2
[2018-02-09] MEDS: PIPERACILL/TAZOBAC IV 3.375 GM in D5W 100ML IV SCH ×3 (02:00→17:23)
[2018-02-09] MEDS: HEPARIN SOD 5000 UNIT/0.5 ML CARP SQ SCH ×3 (05:12→20:43)
[2018-02-09 06:11] LABS: BASO % 0.2 %; BASO ABS # 0.02 K/uL (0-0.2); EOS % 4.4 %; LYMPH % 22.2 %; LYMPH ABS # 2.04 K/uL (1.2-3.4); MEAN CELL VOLUME 90.7 fL (80-100); MEAN CORPUSCULAR HEMOGLOBIN 28.3 pg (25-34); MEAN CORPUSCULAR HGB CONC 31.3 g/dl (32-36); MEAN PLATELET VOLUME 9.1 fL (7.4-10.4); MONO % 8.6 %; MONO ABS # 0.79 K/uL (0.11-0.59); NEUT % 63.5 %; NEUT ABS # 5.83 K/uL (1.4-6.5); PLATELET COUNT 216 K/uL (130-400); RED CELL DISTRIBUTION WIDTH CV 16.2 % (11.5-14.5); RED CELL DISTRIBUTION WIDTH SD 52.9 fL (36.4-46.3); WHITE BLOOD COUNT 9.18 K/uL (4.8-10.8)
[2018-02-09 06:47] LABS: ALBUMIN 2.3 gm/dl (3.4-5.0); ALT/SGPT 23 U/L (12-78); AST/SGOT 26 U/L (15-37); BLOOD UREA NITROGEN 22 mg/dl (7-18); CALCIUM 9.3 mg/dl (8.5-10.1); CARBON DIOXIDE 33 mmol/L (21-32); CREATININE 1.44 mg/dl (0.60-1.40); GLUCOSE 108 mg/dl (70-99); POTASSIUM 3.6 mmol/L (3.5-5.1); SODIUM 138 mmol/L (136-145)
[2018-02-09 06:58] LABS: ALKALINE PHOSPHATASE 113 U/L (45-117); TOTAL PROTEIN 7.4 gm/dl (6.4-8.2)
[2018-02-09] MEDS: RANOLAZINE 500 MG ER TAB PO SCH ×2 (08:49→20:40)
[2018-02-09] MEDS: ASPIRIN 81 MG ECTAB PO SCH (08:49)
[2018-02-09] MEDS: FUROSEMIDE 40 MG TAB PO SCH ×2 (09:00→16:54)
[2018-02-09] MEDS: SPIRONOLACTONE 25 MG TAB PO SCH (09:00)
[2018-02-09] MEDS: METOPROLOL SUCC 50MG EXT REL TAB PO SCH ×2 (09:00→20:41)
--- NOTE | 2018-02-09 10:11 | Pharmacy Progress Note ---
Pharmacy Abx Dose Short Note Date of Service February 09, 2018. Assessment & Plan Assessment 72 year old male receiving Vancomycin and Zosyn for treatment of possible pneumonia Day # 2 of antimicrobial therapy. Plan Vancomycin * Est. PK parameters: Elias ~0.051 hr-1; T1/2 ~14 hrs; CrCl 55.6 * Change to 1250 mg IV every 16 hours * Goal trough level for pneumonia : 15 to 20 mcg/mL * Trough level ordered for: 02/10/18 @ 1930 Renal function has improved slightly. Will change interval to q16h. Will check trough with 4th total dose. Zosyn * Dose remains appropriate for renal function. Pharmacy will continue to follow and will adjust dose/frequency as necessary. Thank you.
--- NOTE | 2018-02-09 10:31 | Cardiology Consultation ---
Cardiology Consultation Date of Consultation: February 09, 2018 Requesting Physician: Pedro Attending General Worker: Jessica (Magnus Schaefer PA-C) History of Present Illness Mr. Verdin is a complex 72-year-old male who is being seen at the request of Dr. Vasquez. Reason for consultation include recent admission for congestive heart failure and dyspnea. Mr. Verdin was hospitalized at [facility] in December with acute decompensated systolic heart failure secondary to underlying pulmonary disease as well as chronic ischemic heart disease. Multiple medication changes were made throughout the course of hospitalization as well as on discharge. ~ Atenolol was switched evidence based Toprol XL at 50 mg twice per day. ~ Furosemide was increased from 40 mg per day to 40 mg twice per day. ~ Spironolactone 25 mg/day is a new medication. ~Metolazone was discontinued. ~ Supplemental potassium was decreased to 10 mEq per day. Viagra was discontinued. Mr. Verdin notes "I never got over the pneumonia." Although on discharge he felt better shortly thereafter he developed worsening cough productive of green mucus and generalized weakness as well as body aches and chills. In early January he was treated with a course of doxycycline by his primary care physician which resulted in significant, albeit transient, improvement. Following discontinuation of doxycycline the patient had recurrent symptoms including a cough productive of green mucus, increased shortness of breath, generalized weakness, body aches, fatigue, decreased appetite, and decreased urine output. The patient was referred to the [facility] Emergency Room on February 08, 2018 by his PCP. Admission chest x-ray revealed interval evolution of previous infiltrates at the lung bases, decreased on the right and stable to increased on the left as well as cardiomegaly with volume overload/congestive change. CAT scan shortly thereafter revealed interval development of diffuse lung infiltrates evidenced by diffuse added density of the lungs concerning for active inflammation or acute atypical pneumonia and less likely pulmonary edema. Findings are concerning for chronic aspiration, evidence of further bile layering debris in the right mainstem bronchus. The patient, this morning, notes improvement since admission that he attributes to IV antibiotic therapy. He denies angina. Denies palpitations. He denies orthopnea or PND. He denies abdominal bloating or scrotal edema. He notes peripheral edema is less than his norm. His weight is down. (Olive,Magnus, PA-C) Past Medical/Surgical History Problem List: Diffuse atherosclerotic coronary disease, status post coronary bypass grafting in 1993, receiving a ALONSO graft to LAD, right internal mammary graft to the right coronary artery. Stenting of the left main in 1999 for progressive angina, with repeat cardiac catheterization last performed 2009, demonstrating no progressive disease. Chronic angina pectoris, class II-III. Congestive heart falure, Class 2 mixed systolic, diastolic Hypertension Dyslipidemia Left carotid stenosis GERD Chronic anxiety Gout History of bladder carcinoma Osteoarthritis Chronic rhinitis (Magnus Schaefer PA-C) Family History Father with an WI at 61. Mother in her early 90's. One brother with an WI at 63. One 1/2 sister is OK. DM in father. (Magnus Schaefer PA-C) Diabetes mellitus FH: heart disease (Wiliam Lopez DO) Social History Prior smoker having quit in 1993 after smoking 1 ppd x 20-25 years. Denies significant alcohol use/abuse. Denies illegal drug use/abuse. 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 . Grown children. (Magnus Schaefer PA-C) Review Of Systems General: Positive chills. Positive fever. Weight is down. No night sweats. HEENT: No headache. Cardiovascular: See above. Pulmonary: Cough productive of green sputum. No hemoptysis. Gastrointestinal: No nausea, vomiting, diarrhea. No melena or hematochezia. Skin: No rash. Musculoskeletal: No recent injury Neurological: No history of seizure. Complete review of system is otherwise as stated above, negative, noncontributory. (Magnus Schaefer PA-C) Allergies Coded Allergies: Sulfa Antibiotics (Verified Allergy, Unknown, ., 02/08/18) Medications Reported Home Medications Medications Dose Route/Sig Max Daily Dose Days Date Category Aldactone (Spironolactone) 25 Mg Tab 25 Mg PO QAM 02/08/18 Reported Crestor (Rosuvastatin Calcium) 40 Mg Tab 40 Mg PO HS 02/08/18 Reported Ranexa (Ranolazine) 500 Mg Tab 500 Mg PO BID 02/08/18 Reported Micro-K Ext Rel (Potassium Chloride) 10 Meq Cap 10 Meq PO DAILY 02/08/18 Reported Toprol Xl (Metoprolol Succinate) 50 Mg Tabcr 75 Mg PO BID 02/08/18 Reported Lasix (Furosemide) 40 Mg Tab 40 Mg PO BID 02/08/18 Reported Co Q-10 (Coenzyme Q10 (Ubidecarenone)) 120 Mg Cap 120 Mg PO QPM 02/08/18 Reported Vitamin D3 (Cholecalciferol) 2,000 Unit Cap 2,000 Units PO QPM 02/08/18 Reported Aspirin Ec (Aspirin) 81 Mg Tab 81 Mg PO QAM 02/08/18 Reported Zyloprim (Allopurinol) 300 Mg Tab 300 Mg PO QAM 02/08/18 Reported Prilosec (Omeprazole) 20 Mg Cap 20 Mg PO DAILY 12/27/17 Reported Claritin (Loratadine) 10 Mg Tab 10 Mg PO DAILY PRN 12/27/17 Reported Xanax (Alprazolam) 0.5 Mg Tab 1 Tab PO TID PRN 30 12/27/17 Reported (Magnus Schaefer PA-C) Physical Exam Vital Signs (Last 8hrs): Last 8 Hrs Date Time Temp Pulse Resp B/P (MAP) Pulse Ox O2 Delivery O2 Flow Rate FiO2 02/09/18 08:46 74 93/58 (70) 02/09/18 07:14 36.3 70 17 96/56 (69) 98 Room Air 02/09/18 04:00 94 Nasal Cannula 4.0 02/09/18 03:45 36.4 88 22 127/70 (89) 95 Nasal Cannula 4.0 General: A&Ox3. NAD. HEENT: Normocephalic. Atraumatic. PER. Conjunctiva pink, sclera clear. Neck: No carotid bruits. No JVD. Heart: Regular at 80 bpm. No murmur. No rub. No gallop. PMI is nondisplaced. Lungs: Diminished. Decreased. Dry bibasilar crackles. No wheeze. Abdomen: +BS. Soft. Nontender. No masses or organomegaly. Extremities: Trivial edema. Lymphedematous changes. No clubbing. No cyanosis. Limited neurological examination is without focal deficits. Pulses: radial=2/4, posterior tibial=2/4. Psychiatric: Normal affect. (Magnus Schaefer PA-C) Data Last 24 Hours Test 02/08/18 16:10 02/08/18 17:32 02/08/18 19:27 02/08/18 23:11 White Blood Count 14.85 K/uL Red Blood Count 4.08 M/uL Hemoglobin 11.7 g/dL Hematocrit 37.2 % Mean Corpuscular Volume 91.2 fL Mean Corpuscular Hemoglobin 28.7 pg Mean Corpuscular Hemoglobin Concent 31.5 g/dl Platelet Count 341 K/uL Mean Platelet Volume 9.4 fL Neutrophils (%) (Auto) 73.4 % Lymphocytes (%) (Auto) 13.7 % Monocytes (%) (Auto) 8.6 % Eosinophils (%) (Auto) 2.8 % Basophils (%) (Auto) 0.2 % Neutrophils # (Auto) 10.92 K/uL Lymphocytes # (Auto) 2.03 K/uL Monocytes # (Auto) 1.27 K/uL Eosinophils # (Auto) 0.41 K/uL Basophils # (Auto) 0.03 K/uL RDW Standard Deviation 52.6 fL RDW Coefficient of Variation 15.8 % Immature Granulocyte % (Auto) 1.3 % Immature Granulocyte # (Auto) 0.19 K/uL Sodium Level 135 mmol/L Potassium Level 4.2 mmol/L Chloride Level 95 mmol/L Carbon Dioxide Level 35 mmol/L Anion Gap 5.0 mmol/L Blood Urea Nitrogen 26 mg/dl Creatinine 1.60 mg/dl Est Creatinine Clear Calc Drug Dose 51.7 ml/min Estimated GFR () 49.9 Estimated GFR (Non- 43.0 BUN/Creatinine Ratio 16.1 Random Glucose 118 mg/dl Calcium Level 9.9 mg/dl Magnesium Level 2.8 mg/dl Total Bilirubin 0.6 mg/dl Aspartate Amino Transf (AST/SGOT) 35 U/L Alanine Aminotransferase (ALT/SGPT) 31 U/L Alkaline Phosphatase 158 U/L Pro-B-Type Natriuretic Peptide 1087 pg/ml Total Protein 9.0 gm/dl Albumin 2.2 gm/dl Globulin 6.8 gm/dl Albumin/Globulin Ratio 0.3 Procalcitonin 0.13 ng/ml Bedside Troponin I < 0.030 ng/ml Troponin I < 0.015 ng/ml < 0.015 ng/ml Lactic Acid Level 2.0 mmol/L Test 02/09/18 05:49 White Blood Count 9.18 K/uL Red Blood Count 3.53 M/uL Hemoglobin 10.0 g/dL Hematocrit 32.0 % Mean Corpuscular Volume 90.7 fL Mean Corpuscular Hemoglobin 28.3 pg Mean Corpuscular Hemoglobin Concent 31.3 g/dl Platelet Count 216 K/uL Mean Platelet Volume 9.1 fL Neutrophils (%) (Auto) 63.5 % Lymphocytes (%) (Auto) 22.2 % Monocytes (%) (Auto) 8.6 % Eosinophils (%) (Auto) 4.4 % Basophils (%) (Auto) 0.2 % Neutrophils # (Auto) 5.83 K/uL Lymphocytes # (Auto) 2.04 K/uL Monocytes # (Auto) 0.79 K/uL Eosinophils # (Auto) 0.40 K/uL Basophils # (Auto) 0.02 K/uL RDW Standard Deviation 52.9 fL RDW Coefficient of Variation 16.2 % Immature Granulocyte % (Auto) 1.1 % Immature Granulocyte # (Auto) 0.10 K/uL Sodium Level 138 mmol/L Potassium Level 3.6 mmol/L Chloride Level 99 mmol/L Carbon Dioxide Level 33 mmol/L Anion Gap 6.0 mmol/L Blood Urea Nitrogen 22 mg/dl Creatinine 1.44 mg/dl Est Creatinine Clear Calc Drug Dose 55.6 ml/min Estimated GFR () 56.6 Estimated GFR (Non- 48.9 BUN/Creatinine Ratio 15.5 Random Glucose 108 mg/dl Calcium Level 9.3 mg/dl Total Bilirubin 0.7 mg/dl Aspartate Amino Transf (AST/SGOT) 26 U/L Alanine Aminotransferase (ALT/SGPT) 23 U/L Alkaline Phosphatase 113 U/L Troponin I < 0.015 ng/ml Total Protein 7.4 gm/dl Albumin 2.3 gm/dl Globulin 5.1 gm/dl Albumin/Globulin Ratio 0.5 Imaging: CXR and CT are as noted above. December 28, 2017 [facility] Interpret[facility] Summary [facility] No significant change compared to previous study of 11/18/15. Normal LV chamber size with mild concentric LVH. Low normal LV systolic function with hypokinesis of the mid to apical anteroseptal and inferoseptal watkins, EF 50-55%. Grade II diastolic dysfunction. Aortic valve sclerosis mild, without significant aortic valvular stenosis. Mild mitral regurgitaiton. Moderate left atrial enlargement. January 12, 2018 TTE Interpretation Summary [facility] A focused study was performed for reassessment of biventricular systolic function, left ventricular wall motion, pulmonary hypertension, and diastolic indices. ~ Patient had a recent previous full echocardiogram performed at this facility on 12/28/17. Study was technically difficult and therefore technically limited. Compared to the prior study dated 12/28/17, ~the anteroseptal wall motion abnormality is chronic and unchanged. ~The inferoseptal wall motion abnormality appears worse with hypokinesis to akinesis. ~There is a subtle decline in the overall left ventricular ejection fraction which is graded to be 50-55% on the prior study and 40-45% on the present study. Doppler findings do not suggest pulmonary hypertension. Admission EKG revealed sinus rhythm at 92 bpm with probable left atrial enlargement, occasional premature ventricular complexes and nonspecific T-wave abnormality. QTc is 450 ms. Telemetry: Sinus rhythm, typically 70-80 bpm with PVCs in singles as well as pattern of bigeminy initially. No atrial fibrillation/flutter. No significant bradycardia or pauses. (Magnus Schaefer PA-C) Assessment & Plan Admission with acute hypoxic respiratory failure secondary to atypical pneumonia , possible aspiration Compensated congestive heart failure signs and symptoms. No current evidence of acute decompensated systolic or diastolic congestive heart failure. Known diffuse atherosclerotic coronary artery disease status post remote CABG as well as left main stenting in 1999. Stable [place] [employer] class II+ angina. No current indication for diagnostic cardiac catheterization. Continue beta-mari, aspirin, statin, Ranexa, and the current diuretic regimen. Further recommendations pending the above, evaluation by Dr. Lopez, and his ongoing hospitalization. (Magnus Schaefer PA-C) CARDIOLOGY ATTENDING ADDENDUM: The patient was seen and personally examined. Agree with Magnus Schaefer PA-C's findings and plans as documented above. The patient is currently considering his options. At this time he is not interested in bronchoscopy however, I discussed with he and his the need to reconsider as a bronchoscopy may be both diagnostic and therapeutic. (Wiliam Lopez, )
--- NOTE | 2018-02-09 11:32 | PULMONARY CONSULTATION ---
DATE OF CONSULTATION: 02/09/2018 REASON FOR CONSULTATION: History of acute respiratory failure with hypoxia/pneumonia/CHF. HISTORY OF PRESENT ILLNESS: A 72-year-old white male who has had several admissions to [facility] within the past 6 months and most recently was discharged on 12/29/2017 while in the [facility] service. Has been treated for pneumonia in the recent past. Echocardiography shown grade 2 diastolic dysfunction and the patient was discharged on oral antibiotic. Apparently at that time, he was transferred from [facility] for worsening acute respiratory failure to our ICU on 01/11/2018 and was transferred out 48 hours later and discharged on 01/22/2018. He then presented to our ER on 02/08/2018 with increasing cough, sputum production, and shortness of breath. He has been on home oxygen. He has been on Lasix b.i.d. and denied worsening lower extremity edema. Last pneumococcal vaccine was in 2002. He does have a remote smoking history having quit some 30 years ago after a pack a day. Chest CT scan on 02/08/2018 done on this admission and compared to 12/27/2017 shows interval development of diffuse lung infiltrates, definite worsening compared to previous radiographic slices from previous CT scan. Interlobular septal thickening is suggested at the lung bases and previous reticular nodule infiltrates are no longer evident, although even the 1.4 cm previously noted nodular density in the right lower lobe. Central airway demonstrates layering debris in the right main stem bronchus with dependence, subpleural consolidation and articulation with bronchiectasis involving the both lower lobes. There are also apical predominant emphysematous changes. No organism from blood cultures, sputum cultures have been isolated from previous admissions. For details of past medical history, medications, family and social history, I refer you to current and past record. The patient does have an ischemic cardiomyopathy, status post CABG in 1993. He had a ALONSO to the LAD and presented with CHF exacerbation, which appeared to be systolic in nature with an EF of 40%. Most recent echo shows an EF of 60%. Dr. Soliz does follow him and Dr. Payan as an outpatient. PCI has been offered to the patient, but refused. Previously treated pneumonia for 12 days with broad-spectrum antibiotic was noted. There is a suggestion of underlying interstitial lung disease. He has worked for [employer] and has had significant chemical exposure. Zaroxolyn and Lasix have been utilized. The patient has been on metoprolol. PHYSICAL EXAMINATION: GENERAL: Reveals a well-developed, somewhat disheveled white male, sleeping comfortably and was awake and exhibiting no signs of respiratory distress. VITAL SIGNS: Temperature 36.3, pulse 70 and regular, respiratory rate 17, blood pressure 120/70-96/56, O2 sat 94% on 4 liters. SKIN: Warm and dry. HEENT: Atraumatic, normocephalic, PERRLA, EOMI. Conjunctivae pale. Sclerae nonicteric. Fundi poorly visualized. NECK: Neck veins are not distended at 45 degrees. No adenopathy. CHEST: Scattered rhonchi right base with rales, distant breath sounds. CARDIAC: Regular rate and rhythm. I do not appreciate a gallop. ABDOMEN: Soft, scaphoid. No evidence for hepatosplenomegaly. EXTREMITIES: Trace pitting pedal edema. No clubbing. Peripheral cyanosis. NEUROLOGIC: Intact. No lateralizing signs. LABORATORY DATA: On admission white count was 14,000, H and H 11.7 and 37.2. Leftward shift noted. BUN 22, creatinine 1.4, albumin 2.3. Review of the CAT scan shows severe disease with prominent subcentimeter mediastinal lymph nodes, probably reactive. Emphysematous changes at the apices. I do not see a discernible mass or nodule previously demonstrated, but there was layering debris in the right mainstem bronchus and severe subpleural consolidation articulation with bronchiectasis. Suspect his traction bronchiectasis involving the left lower lobes. OVERALL ASSESSMENT: A 72-year-old with severe chronic obstructive pulmonary disease and interstitial lung disease, suspect IPF or degree of UIP, although the differential is lengthy with worsening respiratory status. I do not think the x-ray findings currently are the result of fluid overload. In fact, the patient appears euvolemic or even dry. He denies aspiration, but certainly it has to be considered, superimposed on his underlying lung disease. A PET scan may be helpful to discern activity and bronchoscopic intervention may be helpful for the patient has deferred all workup at this point in time. I tried to explain to him that additional information may be helpful to us with his treatment. He is currently on IV vancomycin and IV Zosyn, which for broad spectrum coverage and to cover for staph. I suspect the patient will require IV Solu-Medrol as well and might benefit from bronchoscopic intervention. At this point in time, patient is recalcitrant to the idea. MTDD
[2018-02-09] MEDS: VANCOMYCIN IV 1,250 MG in SODIUM CHLORIDE 0.9% 250ML 250 ML IV SCH (12:12)
[2018-02-09] MEDS ORDERED: VANCOMYCIN IV 1,250 MG in SODIUM CHLORIDE 0.9% 250ML 250 ML IV SCH (14:00)
--- NOTE | 2018-02-09 14:25 | Clinical Documentation Query ---
CLINICAL DOCUMENTATION QUERY Dr. DILLON, In your clinical opinion is this patient being managed for: ( x ) Pneumonia ( ) Aspiration pneumonia ( ) Not Agree ( ) Other explanation of clinical findings (No explanation is considered a No Response) ( ) Unable to determine ( ) Need to Discuss (Phone CDS or qliq) (No discussion is considered a No Response) The medical record reflects the following clinical findings, treatment, and risk factors. Clinical Indicators: 72 yo female presenting with dyspnea x 3 weeks which started almost immediately after last hospital discharge for CHF. WBC 14.85, O2 sat 72% on RA. CT chest suggestive of chronic aspiration with evidence of layering debris in R mainstem bronchus. H/P provides differential of pneumonia vs CHF. Treatment: IV fluids, IV vancomycin, IV zosyn, pulmonary consult, cardiology consult Risk Factors: age, recent hospital admit, COPD, CHF Please clarify and document your clinical opinion in the progress notes and discharge summary. Terms such as "probable", "suspected", "likely", "questionable", "possible", or "still to be ruled out" are acceptable. IF IN AGREEMENT, YOU MUST DOCUMENT ABOVE DIAGNOSTIC STATEMENT IN DAILY PROGRESS NOTES AND DISCHARGE SUMMARY. This document is not part of the patient's record. Thank You, Amaya Shin, CHASE [phone]
--- NOTE | 2018-02-09 15:31 | Progress Note ---
Internal Med Progress Note Date of Service: February 09, 2018. Provider Documentation: SUBJECTIVE: Patient declined bronchoscopy at this time. Patient denies other concerns OBJECTIVE: Exam: General- no acute distress Eyes- EOMI Neck- no JVD Lungs- crackles on exam, but good air entry Heart- regular rate Abdomen- soft, nontender, + bowel sounds Extremities- slight lower extremity edema Neuro - awake and alert ASSESSMENT & PLAN: 72 year old M who was recently discharged from [facility] on 12/29/17 under [facility] group after he was treated for pneumonia with also echocardiogram of grade 2 diastolic dysfunction and discharged with oral antibiotic and transferred from [facility] for worsening acute respiratory failure and transferred to the ICU of [facility] on 01/11/18. Transferred out of ICU on 01/13/18. Patient was then discharged on 01/21/18. Patient returns to the hospital emergency room on 02/08/18. Patient reports that has been again having more coughing with clear sputum and more dyspnea. CT Chest without Contrast 1. Interval development of diffuse lung infiltrates evidenced by diffuse added density of the lungs. This is concerning for active inflammation or acute atypical pneumonia. Less likely this may represent pulmonary edema. 2. Resolution of prior reticulonodular infiltrates, including a 1.4 cm right lower lobe nodular consolidation. 3. Background apical predominant emphysematous changes. 4. Findings could suggest chronic aspiration. Additionally, evidence of layering debris in the right mainstem bronchus further raises concern for aspiration. 5. Post surgical changes of coronary artery bypass Plan Pneumonia vs CHF exacerbation (with pneumonia differential more likely) -was started broad spectrum antibiotics given recent hospitalizations with Vancomycin and Zosyn on 02/09/18 -sputum culture light normal iván -blood culture results pending -despite recommendations from hospitalist and pulmonary physician to work up the recurrent pneumonia hospital presentations vs interstitial lung disease, patient has declined bronchoscopy at this time -Echocardiogram 01/12/18 There is an anteroseptal wall motion abnormality with hypokinesis to akinesis of the segments and extending to the apex. There is hypokinesis to akinesis of the inferoseptum. Mild left ventricular systolic dysfunction is present with a qualitative ejection fraction of 40-45%. Compared to the prior echocardiogram images performed on 12/28/17 which were reviewed in comparison inferoseptal wall motion appears to be worse and there has been a subtle decline in the ejection fraction. -Cardiac history of CAD with CABG and PCI: Continue spirolactone, continue metoprolol succinate, Continue aspirin, rosuvastatin, ranexa. -troponins negative on this admission -cardiology service does not deem patient to be in acute CHF exacerbation and lung findings on this admission is attributed to lung process such as pneumonia , also that there is no need for cardiac catheterization at this time (Compensated congestive heart failure signs and symptoms. No current evidence of acute decompensated systolic or diastolic congestive heart failure.) Fluid Management -monitor renal function and urine output while on diuretics (oral Lasix BID) for chronic CHF -HILARY likely from diuretic use History of recent home oxygen use -Continue oxygen Patient has smoking history in the past but quit for years Allergies to sulfa antibiotics but no known reactions to Lasix Full Code DVT ppx: heparin subc Family [phone] Vital Signs: Date Time Temp Pulse Resp B/P (MAP) Pulse Ox O2 Delivery O2 Flow Rate FiO2 02/09/18 12:00 Nasal Cannula 3.0 02/09/18 11:44 36.5 76 20 100/62 (75) 100 Nasal Cannula 3.0 02/09/18 08:46 74 93/58 (70) 02/09/18 08:00 Nasal Cannula 4.0 02/09/18 07:14 36.3 70 17 96/56 (69) 98 Room Air 02/09/18 04:00 94 Nasal Cannula 4.0 02/09/18 03:45 36.4 88 22 127/70 (89) 95 Nasal Cannula 4.0 02/08/18 23:59 94 Nasal Cannula 4.0 02/08/18 23:35 36.8 82 18 100/62 (75) 94 Nasal Cannula 4.0 02/08/18 21:51 79 16 97 Nasal Cannula 4.0 02/08/18 21:20 82 93/56 (68) 96 Nasal Cannula 4.0 02/08/18 20:33 36.4 92 22 94/60 96 Nasal Cannula 4.0 02/08/18 19:35 79 18 91/61 99 Nasal Cannula 4.0 02/08/18 19:06 79 02/08/18 18:16 82 18 100/61 96 Nasal Cannula 4.0 02/08/18 17:34 83 18 105/62 97 Room Air 02/08/18 16:23 90 18 107/62 96 Nasal Cannula 5.0 Lab Results: Results Past 24 Hours Test 02/08/18 16:10 02/08/18 17:32 02/08/18 19:27 02/08/18 23:11 Range/Units White Blood Count 14.85 4.8-10.8 K/uL Red Blood Count 4.08 4.7-6.1 M/uL Hemoglobin 11.7 14.0-18.0 g/dL Hematocrit 37.2 42-52 % Mean Corpuscular Volume 91.2 80-100 fL Mean Corpuscular Hemoglobin 28.7 25-34 pg Mean Corpuscular Hemoglobin Concent 31.5 32-36 g/dl Platelet Count 341 130-400 K/uL Mean Platelet Volume 9.4 7.4-10.4 fL Neutrophils (%) (Auto) 73.4 % Lymphocytes (%) (Auto) 13.7 % Monocytes (%) (Auto) 8.6 % Eosinophils (%) (Auto) 2.8 % Basophils (%) (Auto) 0.2 % Neutrophils # (Auto) 10.92 1.4-6.5 K/uL Lymphocytes # (Auto) 2.03 1.2-3.4 K/uL Monocytes # (Auto) 1.27 0.11-0.59 K/uL Eosinophils # (Auto) 0.41 0-0.5 K/uL Basophils # (Auto) 0.03 0-0.2 K/uL RDW Standard Deviation 52.6 36.4-46.3 fL RDW Coefficient of Variation 15.8 11.5-14.5 % Immature Granulocyte % (Auto) 1.3 % Immature Granulocyte # (Auto) 0.19 0.00-0.02 K/uL Sodium Level 135 136-145 mmol/L Potassium Level 4.2 3.5-5.1 mmol/L Chloride Level 95 98-107 mmol/L Carbon Dioxide Level 35 21-32 mmol/L Anion Gap 5.0 3-11 mmol/L Blood Urea Nitrogen 26 7-18 mg/dl Creatinine 1.60 0.60-1.40 mg/dl Est Creatinine Clear Calc Drug Dose 51.7 ml/min Estimated GFR () 49.9 Estimated GFR (Non- 43.0 BUN/Creatinine Ratio 16.1 10-20 Random Glucose 118 70-99 mg/dl Calcium Level 9.9 8.5-10.1 mg/dl Magnesium Level 2.8 1.8-2.4 mg/dl Total Bilirubin 0.6 0.2-1 mg/dl Aspartate Amino Transf (AST/SGOT) 35 15-37 U/L Alanine Aminotransferase (ALT/SGPT) 31 12-78 U/L Alkaline Phosphatase 158 45-117 U/L Pro-B-Type Natriuretic Peptide 1087 0-900 pg/ml Total Protein 9.0 6.4-8.2 gm/dl Albumin 2.2 3.4-5.0 gm/dl Globulin 6.8 2.5-4.0 gm/dl Albumin/Globulin Ratio 0.3 0.9-2 Procalcitonin 0.13 0-0.5 ng/ml Bedside Troponin I < 0.030 0-0.045 ng/ml Troponin I < 0.015 < 0.015 0-0.045 ng/ml Lactic Acid Level 2.0 0.4-2.0 mmol/L Test 02/09/18 05:49 Range/Units White Blood Count 9.18 4.8-10.8 K/uL Red Blood Count 3.53 4.7-6.1 M/uL Hemoglobin 10.0 14.0-18.0 g/dL Hematocrit 32.0 42-52 % Mean Corpuscular Volume 90.7 80-100 fL Mean Corpuscular Hemoglobin 28.3 25-34 pg Mean Corpuscular Hemoglobin Concent 31.3 32-36 g/dl Platelet Count 216 130-400 K/uL Mean Platelet Volume 9.1 7.4-10.4 fL Neutrophils (%) (Auto) 63.5 % Lymphocytes (%) (Auto) 22.2 % Monocytes (%) (Auto) 8.6 % Eosinophils (%) (Auto) 4.4 % Basophils (%) (Auto) 0.2 % Neutrophils # (Auto) 5.83 1.4-6.5 K/uL Lymphocytes # (Auto) 2.04 1.2-3.4 K/uL Monocytes # (Auto) 0.79 0.11-0.59 K/uL Eosinophils # (Auto) 0.40 0-0.5 K/uL Basophils # (Auto) 0.02 0-0.2 K/uL RDW Standard Deviation 52.9 36.4-46.3 fL RDW Coefficient of Variation 16.2 11.5-14.5 % Immature Granulocyte % (Auto) 1.1 % Immature Granulocyte # (Auto) 0.10 0.00-0.02 K/uL Sodium Level 138 136-145 mmol/L Potassium Level 3.6 3.5-5.1 mmol/L Chloride Level 99 98-107 mmol/L Carbon Dioxide Level 33 21-32 mmol/L Anion Gap 6.0 3-11 mmol/L Blood Urea Nitrogen 22 7-18 mg/dl Creatinine 1.44 0.60-1.40 mg/dl Est Creatinine Clear Calc Drug Dose 55.6 ml/min Estimated GFR () 56.6 Estimated GFR (Non- 48.9 BUN/Creatinine Ratio 15.5 10-20 Random Glucose 108 70-99 mg/dl Calcium Level 9.3 8.5-10.1 mg/dl Total Bilirubin 0.7 0.2-1 mg/dl Aspartate Amino Transf (AST/SGOT) 26 15-37 U/L Alanine Aminotransferase (ALT/SGPT) 23 12-78 U/L Alkaline Phosphatase 113 45-117 U/L Troponin I < 0.015 0-0.045 ng/ml Total Protein 7.4 6.4-8.2 gm/dl Albumin 2.3 3.4-5.0 gm/dl Globulin 5.1 2.5-4.0 gm/dl Albumin/Globulin Ratio 0.5 0.9-2 Microbiology Results 02/08/18 Blood Culture, Received Pending 02/08/18 Blood Culture, Received Pending 02/08/18 MRSA DNA Surveillance Screen - Final, Complete Specimen Negative for MRSA by DNA Probe 02/08/18 Gram Stain - Final, Resulted 02/08/18 Sputum Culture - Preliminary, Resulted LIGHT NORMAL IVÁN Present, Final Rep...
[2018-02-09] MEDS ORDERED: VANCOMYCIN IV 0 MG in SODIUM CHLORIDE 0.9% 500ML 500 ML IV SCH (18:45)
[2018-02-09] MEDS: ROSUVASTATIN CALCIUM 20 MG TAB PO SCH (20:41)
[2018-02-10] VITALS (7 sets, daily range): BP systolic 90–111; BP diastolic 55–66; PULSE 56–83; TEMP 36.5–36.8; O2SAT 95–98
[2018-02-10] MEDS: PIPERACILL/TAZOBAC IV 3.375 GM in D5W 100ML IV SCH ×3 (01:05→18:25)
[2018-02-10] MEDS: VANCOMYCIN IV 1,250 MG in SODIUM CHLORIDE 0.9% 250ML 250 ML IV SCH (05:07)
[2018-02-10] MEDS: HEPARIN SOD 5000 UNIT/0.5 ML CARP SQ SCH (05:09)
[2018-02-10 07:38] LABS: CREATININE 1.34 mg/dl (0.60-1.40)
[2018-02-10] MEDS: METOPROLOL SUCC 50MG EXT REL TAB PO SCH ×2 (07:39→20:17)
[2018-02-10] MEDS: RANOLAZINE 500 MG ER TAB PO SCH ×2 (07:40→20:17)
[2018-02-10] MEDS: FUROSEMIDE 40 MG TAB PO SCH ×2 (07:40→17:04)
[2018-02-10] MEDS: SPIRONOLACTONE 25 MG TAB PO SCH (07:40)
[2018-02-10] MEDS: ASPIRIN 81 MG ECTAB PO SCH (07:40)
--- NOTE | 2018-02-10 09:20 | DIAGNOSTIC IMAGING REPORT ---
CHEST 2 VIEWS ROUTINE HISTORY: 72 years-old Male follow up lung infiltrates follow-up study in a patient with consolidative opacities COMPARISON: Chest radiograph 02/08/2018, CT chest 02/08/2018 TECHNIQUE: Portable AP and lateral views of the chest FINDINGS: Cardiac silhouette is mildly enlarged. Prior median sternotomy. Atherosclerosis of the aorta. There is no pneumothorax. Small left pleural effusion. Chronic interstitial coarsening redemonstrated with patchy alveolar opacities primarily seen about the left lung, generally unchanged. Emphysema and mild pulmonary vascular congestion noted. The bones of the chest appear grossly intact. Degenerative changes about the spine and left shoulder. IMPRESSION: 1. Cardiomegaly with mild pulmonary vascular congestion. 2. Emphysema with chronic interstitial coarsening. 2. Patchy alveolar opacities about the left lung with small left pleural effusion redemonstrated suspicious for pneumonia. The above report was generated using voice recognition software. It may contain grammatical, syntax or spelling errors. Electronically signed by: Kyrie Dean M.D. 02/10/2018 9:18 AM Dictated Date/Time: 02/10/2018 9:11 AM
--- NOTE | 2018-02-10 09:38 | Cardiology Follow-Up ---
Subjective General Date of Service: February 10, 2018. Chief Complaint: Cough Pt evaluation today including: conversation w/ patient, physical exam, chart review, lab review, review of studies, review of inpatient medication list History of Present Illness Patient seen and examined prior to departing for a follow-up chest x-ray. Overall, is feeling considerably better. He notes that his commented on how much better he appeared. He denies chest pain, angina, worsening dyspnea, orthopnea, PND, or increased edema. Telemetry: Sinus in the 70s. One brief episode of SVT at 0037, asymptomatic. Allergies Coded Allergies: Sulfa Antibiotics (Verified Allergy, Unknown, ., 02/08/18) Social History Hx Tobacco Use In Past Year?: No Hx Alcohol Use - Type And Amou: No Hx Substance Use - Type And Am: No Problem List Medical Problems: (1) Bilateral pneumonia Status: Acute (2) Congestive heart failure Status: Acute Physical Exam Vital Signs Last Vital Signs Documentation Date Time Temp Pulse Resp B/P (MAP) Pulse Ox O2 Delivery O2 Flow Rate FiO2 02/10/18 08:00 Nasal Cannula 3.0 02/10/18 07:12 36.8 74 18 95/56 (69) 96 Physical Exam Constitutional: Level of Distress: NAD Psychiatric: Mental Status: active & alert Orientation: to time, to place, to person Memory: recent memory normal, remote memory normal Head: normocephalic, atraumatic Eyes: Pupils: PERRLA Neck: pertinent finding (Normal jugular venous pressure. No hepatojugular reflux) Lungs: Respiratory effort: no dyspnea Auscultation: no wheezing, deminished air movement, decreased breath sounds , rhonchi, rales/crackles on the left, rales/crackles on the right Cardiovascular: Heart Auscultation: RRR, normal S1, normal S2, II/ MATHEW Peripheral Pulses: Radial Pulse: normal on the left, normal on the right Dorsalis Pedis Pulse: decreased on the left, decreased on the right Abdomen: Bowel Sounds: normal Extremities: no cyanosis, no clubbing, edema (Minimal) Neurologic: Cranial Nerves: grossly intact Assessment and Plan Assessment and Plan 1. Admission with acute hypoxic respiratory failure secondary to atypical pneumonia, possible aspiration 2. Compensated congestive heart failure signs and symptoms. No current evidence of acute decompensated systolic or diastolic congestive heart failure. 3. Known diffuse atherosclerotic coronary artery disease status post remote CABG as well as left main stenting in 1999. Stable [place] Cardiovascular Society class II+ angina. No current indication for diagnostic cardiac catheterization. Continue beta-mari, aspirin, statin, Ranexa, and the current diuretic regimen. Outpatient cardiology follow-up. Please call if any questions or concerns. CARDIOLOGY ATTENDING ADDENDUM: The patient was seen and personally examined. Agree with Magnus Schaefer PA-C's findings and plans as documented above. The patient has decided to undergo bronchoscopy which will be completed tomorrow. Otherwise the patient is currently stable from cardiac standpoint. Laboratory Results Last 24 Hours Test 02/09/18 15:30 02/10/18 06:43 Urine Color DK YELLOW Urine Appearance TURBID Urine pH 6.0 Urine Specific [place] 1.027 Urine Protein 2+ Urine Glucose (UA) NEG Urine Ketones NEG Urine Occult Blood 1+ Urine Nitrite NEG Urine Bilirubin NEG Urine Urobilinogen NEG Urine Leukocyte Esterase TRACE Urine WBC (Auto) 10-30 /hpf Urine RBC (Auto) 0-4 /hpf Urine Hyaline Casts (Auto) 1-5 /lpf Urine Epithelial Cells (Auto) >30 /lpf Urine Bacteria (Auto) NEG Urine Renal Epithelial Cells /lpf Urine Pathogenic Casts 1-5 GRANULAR CASTS /lpf Urine Yeast (Auto) Creatinine 1.34 mg/dl Est Creatinine Clear Calc Drug Dose 59.6 ml/min Estimated GFR () 61.8 Estimated GFR (Non- 53.3
[2018-02-10] MEDS ORDERED: DEXTROSE 5% 1000ML 1,000 ML IV SCH (11:37)
--- NOTE | 2018-02-10 12:23 | PULMONARY PROGRESS NOTE ---
DATE: 02/10/2018 SUBJECTIVE: Still dyspneic and congested. He has changed his mind and would like us to proceed with bronchoscopic intervention. The patient is seen earlier today by cardiology and felt that he showed no current evidence of acute decompensated systolic or diastolic congestive failure. I believe bronchoscopy is indicated because of recurrent bouts of pneumonitis in addition to CHF and the concern about aspiration. The patient is on excellent antibiotic coverage, but will schedule him tomorrow and hold his subcutaneous heparin prior to the procedure.
[2018-02-10] MEDS ORDERED: VANCOMYCIN TROUGH ONE (19:30)
[2018-02-10] MEDS: ROSUVASTATIN CALCIUM 20 MG TAB PO SCH (20:17)
--- NOTE | 2018-02-10 20:21 | Progress Note ---
Internal Med Progress Note Date of Service: February 10, 2018. Provider Documentation: SUBJECTIVE: Patient has agreed to bronchoscopy. Patient remains having shortness of breath complaints but not acutely short of breath OBJECTIVE: Exam: General- no acute distress Eyes- EOMI Neck- no JVD Lungs- crackles on exam, but good air entry Heart- regular rate Abdomen- soft, nontender, + bowel sounds Extremities- slight lower extremity edema Neuro - awake and alert ASSESSMENT & PLAN: 72 year old M who was recently [facility] treated for pneumonia with also echocardiogram of grade 2 diastolic dysfunction and discharged with oral antibiotic and transferred from [facility] for worsening acute respiratory failure and transferred to the ICU of [facility] on 01/11/18. Transferred out of ICU on 01/13/18. Patient was then discharged on 01/21/18. Patient returns to the hospital emergency room on 02/08/18. Patient reports that has been again having more coughing with clear sputum and more dyspnea. CT Chest without Contrast 1. Interval development of diffuse lung infiltrates evidenced by diffuse added density of the lungs. This is concerning for active inflammation or acute atypical pneumonia. Less likely this may represent pulmonary edema. 2. Resolution of prior reticulonodular infiltrates, including a 1.4 cm right lower lobe nodular consolidation. 3. Background apical predominant emphysematous changes. 4. Findings could suggest chronic aspiration. Additionally, evidence of layering debris in the right mainstem bronchus further raises concern for aspiration. 5. Post surgical changes of coronary artery bypass Plan Pneumonia vs other pulmonary etiologies -was started broad spectrum antibiotics given recent hospitalizations with Vancomycin and Zosyn on 02/09/18 -sputum culture light normal iván -blood culture results negative - Vancomycin stopped on 02/10/18. Continue Zosyn -patient has agreed to bronchoscopy for 02/11/18 Compensated CHF as per cardiology service -Cardiac history of CAD with CABG and PCI: Continue spirolactone, continue metoprolol succinate, Continue aspirin, rosuvastatin, ranexa. -troponins negative on this admission -cardiology service does not deem patient to be in acute CHF exacerbation and lung findings on this admission is attributed to lung process such as pneumonia , also that there is no need for cardiac catheterization at this time (Compensated congestive heart failure signs and symptoms. No current evidence of acute decompensated systolic or diastolic congestive heart failure.) Fluid Management -monitor renal function and urine output while on diuretics (oral Lasix BID) for chronic CHF -HILARY likely from diuretic use -creatinine downtrending History of recent home oxygen use -Continue oxygen Patient has smoking history in the past but quit for years Allergies to sulfa antibiotics but no known reactions to Lasix Full Code DVT ppx: heparin subc Family [phone] NPO after midnight for bronchoscopy Vital Signs: Date Time Temp Pulse Resp B/P (MAP) Pulse Ox O2 Delivery O2 Flow Rate FiO2 02/10/18 16:13 36.5 80 16 111/66 (81) 96 Nasal Cannula 3.0 02/10/18 16:00 Nasal Cannula 3.0 02/10/18 12:00 Nasal Cannula 3.0 02/10/18 11:10 36.5 56 16 90/55 (67) 98 Nasal Cannula 3.0 02/10/18 08:00 Nasal Cannula 3.0 02/10/18 07:12 36.8 74 18 95/56 (69) 96 Nasal Cannula 3.0 02/10/18 04:00 Nasal Cannula 3.0 02/10/18 03:33 36.5 74 16 102/55 (71) 98 Nasal Cannula 3.0 02/10/18 00:00 Nasal Cannula 3.0 02/09/18 23:40 36.6 75 18 99/61 (74) 93 Nasal Cannula 3.0 Lab Results: Results Past 24 Hours Test 02/10/18 06:43 02/10/18 15:39 Range/Units Creatinine 1.34 0.60-1.40 mg/dl Est Creatinine Clear Calc Drug Dose 59.6 ml/min Estimated GFR () 61.8 Estimated GFR (Non- 53.3 Vancomycin Level Trough 27.1 SEE COMMENT mcg/ml
[2018-02-11] VITALS (12 sets, daily range): BP systolic 81–124; BP diastolic 58–75; PULSE 70–86; TEMP 36.4–36.5; O2SAT 88–100
[2018-02-11] MEDS: PIPERACILL/TAZOBAC IV 3.375 GM in D5W 100ML IV SCH ×3 (02:09→17:55)
[2018-02-11] MEDS ORDERED: PANTOprazole SOD 40 MG TAB PO ONE (02:19)
[2018-02-11] MEDS ORDERED: ALPRAZOLAM 0.5 MG TAB PO ONE (02:19)
[2018-02-11] MEDS ORDERED: ALPRAZOLAM 0.5 MG TAB PO PRN (02:30)
[2018-02-11 06:03] LABS: BASO % 0.1 %; BASO ABS # 0.01 K/uL (0-0.2); EOS ABS # 0.35 K/uL (0-0.5); HEMATOCRIT 29.5 % (42-52); HEMOGLOBIN 9.5 g/dL (14.0-18.0); LYMPH % 26.4 %; LYMPH ABS # 1.83 K/uL (1.2-3.4); MEAN CELL VOLUME 89.4 fL (80-100); MEAN CORPUSCULAR HEMOGLOBIN 28.8 pg (25-34); MEAN CORPUSCULAR HGB CONC 32.2 g/dl (32-36); MONO % 8.8 %; MONO ABS # 0.61 K/uL (0.11-0.59); NEUT % 58.3 %; NEUT ABS # 4.04 K/uL (1.4-6.5); PLATELET COUNT 182 K/uL (130-400); RED CELL DISTRIBUTION WIDTH CV 16.2 % (11.5-14.5); RED CELL DISTRIBUTION WIDTH SD 52.8 fL (36.4-46.3); WHITE BLOOD COUNT 6.94 K/uL (4.8-10.8)
[2018-02-11 06:24] LABS: CREATININE 1.42 mg/dl (0.60-1.40)
[2018-02-11] MEDS: RANOLAZINE 500 MG ER TAB PO SCH ×2 (08:04→20:52)
[2018-02-11] MEDS: METOPROLOL SUCC 50MG EXT REL TAB PO SCH ×2 (08:04→20:53)
[2018-02-11] MEDS: FUROSEMIDE 40 MG TAB PO SCH (08:05)
[2018-02-11] MEDS: ASPIRIN 81 MG ECTAB PO SCH (08:05)
[2018-02-11] MEDS: SPIRONOLACTONE 25 MG TAB PO SCH (08:05)
--- NOTE | 2018-02-11 08:58 | Pre Sedation Assessment ---
Pre Sedation Assessment General Date of Sedation: February 11, 2018. Vital Signs Past 12 Hours Date Time Temp Pulse Resp B/P (MAP) Pulse Ox O2 Delivery O2 Flow Rate FiO2 02/11/18 07:46 36.5 74 20 101/62 (75) 93 Nasal Cannula 3.0 02/11/18 04:05 94 Nasal Cannula 3.0 02/11/18 02:06 36.5 74 18 106/63 (77) 94 Nasal Cannula 3.0 02/11/18 00:05 95 Nasal Cannula 3.0 02/10/18 23:45 36.5 73 17 98/60 (73) 95 Nasal Cannula 3.0 Pre-Sedation Airway Assessment Oral Cavity: Dentures Mallampati Classification: Class II ASA Classification: Class II Procedure Planning Contraindications for Sedation: None Current Medications Reviewed: Yes Notes The planned sedation has been discussed with the patient. Informed Consent was obtained. I have identified the patient, determined the appropriateness of sedation and have assessed the patient immediately prior to the procedure. All medicine(s) and interventions are by my order.
--- NOTE | 2018-02-11 08:58 | History & Physical Bridge Note ---
H&P Re-Evaluation Bridge Note: I have examined the patient, reviewed the History & Physical and in the interval since the performance of the History & Physical I have noted the following changes of clinical significance: No changes noted
--- NOTE | 2018-02-11 09:04 | Cardiology Follow-Up ---
Subjective General Date of Service: February 11, 2018. Chief Complaint: Cough Pt evaluation today including: conversation w/ patient, physical exam, chart review, lab review, review of studies, review of inpatient medication list History of Present Illness Patient seen and examined approximately twenty minutes prior to completing this documentation. For bronchoscopy today with Dr. Campuzano. No chest pain, angina, worsening dyspnea, orthopnea, PND, or increased edema. Porter catheter remains in place. Telemetry: Sinus in the 70s. Allergies Coded Allergies: Sulfa Antibiotics (Verified Allergy, Unknown, ., 02/08/18) Social History Hx Tobacco Use In Past Year?: No Hx Alcohol Use - Type And Amou: No Hx Substance Use - Type And Am: No Problem List Medical Problems: (1) Bilateral pneumonia Status: Acute (2) Congestive heart failure Status: Acute Physical Exam Vital Signs Last Vital Signs Documentation Date Time Temp Pulse Resp B/P (MAP) Pulse Ox O2 Delivery O2 Flow Rate FiO2 02/11/18 07:46 36.5 74 20 101/62 (75) 93 Nasal Cannula 3.0 Physical Exam Constitutional: Level of Distress: NAD Psychiatric: Mental Status: active & alert Orientation: to time, to place, to person Memory: recent memory normal, remote memory normal Head: normocephalic, atraumatic Eyes: Pupils: PERRLA Neck: pertinent finding (Normal jugular venous pressure. No hepatojugular reflux) Lungs: Respiratory effort: no dyspnea Auscultation: no wheezing, no rhonchi, deminished air movement, decreased breath sounds, rhonchi, pertinent finding (dry crackles heard throughout.) Cardiovascular: Heart Auscultation: RRR, normal S1, normal S2, II/ MATHEW Peripheral Pulses: Radial Pulse: normal on the left, normal on the right Dorsalis Pedis Pulse: decreased on the left, decreased on the right Abdomen: Bowel Sounds: normal Extremities: no cyanosis, no clubbing, edema (Minimal) Neurologic: Cranial Nerves: grossly intact Assessment and Plan Assessment and Plan 1. Admission with acute hypoxic respiratory failure secondary to atypical pneumonia, possible aspiration 2. Compensated congestive heart failure signs and symptoms. 3. Stable atherosclerotic coronary artery disease. Continue beta-mari, aspirin, statin, Ranexa, and the current diuretic regimen. Outpatient cardiology follow-up. Singing off. Please call if any questions or concerns. CARDIOLOGY ATTENDING ADDENDUM: The patient was seen and personally examined. Agree with Magnus Schaefer PA-C's findings and plans as documented above. We will follow the patient as an outpatient. Please reconsult if necessary. Laboratory Results Last 24 Hours Test 02/10/18 15:39 02/11/18 05:23 Vancomycin Level Trough 27.1 mcg/ml White Blood Count 6.94 K/uL Red Blood Count 3.30 M/uL Hemoglobin 9.5 g/dL Hematocrit 29.5 % Mean Corpuscular Volume 89.4 fL Mean Corpuscular Hemoglobin 28.8 pg Mean Corpuscular Hemoglobin Concent 32.2 g/dl Platelet Count 182 K/uL Mean Platelet Volume 9.0 fL Neutrophils (%) (Auto) 58.3 % Lymphocytes (%) (Auto) 26.4 % Monocytes (%) (Auto) 8.8 % Eosinophils (%) (Auto) 5.0 % Basophils (%) (Auto) 0.1 % Neutrophils # (Auto) 4.04 K/uL Lymphocytes # (Auto) 1.83 K/uL Monocytes # (Auto) 0.61 K/uL Eosinophils # (Auto) 0.35 K/uL Basophils # (Auto) 0.01 K/uL RDW Standard Deviation 52.8 fL RDW Coefficient of Variation 16.2 % Immature Granulocyte % (Auto) 1.4 % Immature Granulocyte # (Auto) 0.10 K/uL Creatinine 1.42 mg/dl Est Creatinine Clear Calc Drug Dose 56.1 ml/min Estimated GFR () 57.6 Estimated GFR (Non- 49.7
[2018-02-11] MEDS ORDERED: SODIUM CHLORIDE 0.9% 1000ML 1,000 ML IV SCH (10:00)
[2018-02-11] MEDS ORDERED: LIDOCAINE VISCOUS 2% 100ML TOP ONE (11:57)
[2018-02-11] MEDS ORDERED: MIDAZOLAM HCL 5 MG/ML 1 ML VIAL IV ONE (11:57)
[2018-02-11] MEDS ORDERED: LEVALBUTEROL 1.25MG/3ML NEB INH ONE (11:57)
[2018-02-11] MEDS ORDERED: OXYMETAZOLINE HCL 0.05% NA SPR 15 ML BTL ONE (11:57)
[2018-02-11] MEDS ORDERED: LIDOCAINE 4% INH SOLN 4 ML BTL TOP ONE (11:57)
--- NOTE | 2018-02-11 11:59 | [facility] Operative Report ---
Operative Report Operative Date February 11, 2018. Pre-Operative Diagnosis Pneumonitis Post-Operative Diagnosis Pneumonitis Procedure(s) Performed Bronchoscopy Surgeon Dr. Campuzano Childcare Worker Surgeon(s) None Estimated Blood Loss 0 Findings Chronic inlammatory mucosal changes Specimens Right and left washings Complication(s) None Disposition I attest to the content of the Intraoperative Record and any orders documented therein. Any exceptions are noted below.
--- NOTE | 2018-02-11 12:00 | Post Sedation Assessment ---
Post Sedation Assessment General Date of Sedation February 11, 2018. Vital Signs: Vital Signs Past 12 Hours Date Time Temp Pulse Resp B/P (MAP) Pulse Ox O2 Delivery O2 Flow Rate FiO2 02/11/18 11:55 81 21 130/82 95 Mask 6 02/11/18 11:50 80 18 142/92 94 Mask 6 02/11/18 11:45 81 16 97/57 100 Mask 6 02/11/18 11:40 80 22 107/64 100 Mask 6 02/11/18 11:30 81 10 93/64 91 Mask 6 02/11/18 11:17 84 7 122/69 91 Nasal Cannula 3 02/11/18 08:00 Nasal Cannula 3.0 02/11/18 07:46 36.5 74 20 101/62 (75) 93 Nasal Cannula 3.0 02/11/18 04:05 94 Nasal Cannula 3.0 02/11/18 02:06 36.5 74 18 106/63 (77) 94 Nasal Cannula 3.0 02/11/18 00:05 95 Nasal Cannula 3.0 Post Procedure Recovery Score Activity: (2) Moves 4 extremities * Respiration: (2) Deep breath/cough Circulation: (2) +/-20% PreAnes Value Consciousness: (2) Fully Awake Oxygen Saturation: (1) O2 needed for >90% Post Anesthesia Score: 9 Discharge Sedation Level of Care: Fast Track Phase II Post Sedation Plan On clinical assessment, the patient appears to have tolerated the sedation without complications. Patient is recovering as anticipated. Patient will continue to be monitored by nursing and may be discharged when sedation discharge criteria are met per below protocol. Upon Completions of procedure and additional 15 minutes continue every 5 minute vital signs and the P.A.R. score; then discharge to a Phase I or Fast Track to Phase II per the following guidelines: * Discharge Patient to appropriate Phase II area if PAR is 8 or greater or return to pre- procedure baseline. The post - procedure orders will be as directed. * If PAR score is less than 8 or not return to pre-procedure baseline then patient will follow Phase I monitoring till PAR is reached for Phase II. The Phase I may be done in procedure room or may call to secure a Phase I area. * If naloxone or flumazenil are used for reversal, hold in Phase I for an additional 60 -120 minutes before discharge to Phase II. Please call the Sedation Physician to re-evaluate and complete post-note for discharge to Phase II area. Do NOT discharge from procedure sedation or Phase 1 until post- sedation evaluation note is complete by procedure /sedation MD Sedation Discharge Instructions to be given to the patient at discharge to home.
--- NOTE | 2018-02-11 13:50 | PULMONARY PROGRESS NOTE ---
DATE: 02/11/2018 SUBJECTIVE: Seems somewhat improved post-bronchoscopy. Sputum minimal. Seems back to baseline. Still breathless with minimal exertion. PHYSICAL EXAMINATION: VITAL SIGNS: Temperature 36.5, pulse 74 and regular, respiratory rate 20, blood pressure 101/62, O2 sat 93% on 3 liters. SKIN: Without lesion. HEENT: Atraumatic, normocephalic, PERRLA, EOMI. Conjunctivae pink. Sclerae nonicteric. Fundi poorly visualized. NECK: Veins are not distended at 45 degrees. No adenopathy in the supra or infraclavicular areas. LUNGS: Distant P and A. No audible wheezes. Some fine rales. CARDIAC: Regular rhythm. I do not appreciate a gallop. ABDOMEN: Soft, scaphoid. No evidence of hepatosplenomegaly. EXTREMITIES: No pedal edema, clubbing, cyanosis. NEUROLOGICAL: Intact. No lateralizing signs. LABORATORY DATA: White count 6900, H and H 9.5 and 29.5, creatinine 1.4. Cultures from the bronchial washings pending. ASSESSMENT: A 72-year-old white male with a history of grade 2 diastolic dysfunction and congestive heart failure, admission for acute hypoxic respiratory failure and bronchopneumonia with a degree of bronchiectasis. The patient's bronchoscopy was not compatible with an acute infection at this point in time and no further signs of any aspirated material. I believe he is slowly improving and if cultures prove negative this weekend, would convert to oral antibiotics. I discussed with Dr. Vasquez the patient's hematuria which apparently began yesterday afternoon and was easily to observe during the bronchoscopy with his Porter bag filled with showing gross hematuria.
--- NOTE | 2018-02-11 17:10 | OPERATIVE REPORT ---
DATE OF OPERATION: 02/11/2018 PROCEDURE: Fiberoptic bronchoscopy with bronchoalveolar lavage. INDICATIONS: Bronchopneumonia, acute hypoxic respiratory failure, ? aspiration. ANESTHESIA PREOPERATIVELY: None. ANESTHESIA DURING PROCEDURE: 3 mg IV Versed, 25 mcg IV fentanyl, 20 mL 2% Xylocaine spray above and below the cords, 4% viscous Xylocaine intranasally. DESCRIPTION OF PROCEDURE: Fiberoptic bronchoscope was inserted into the right naris with minimal difficulty. The patient was being admitted with 6 liters of oxygen via Oxymask. The patient's blood pressure was borderline at 96/60. The scope was passed to the level of the true vocal cords. The cords appeared to approximate normally with phonation without evidence of lesions or paralysis. The area was anesthetized with 2% Xylocaine spray and the scope was then introduced in the trachea and right and left tracheobronchial tree. The trachea and casey was sharp. The right main stem bronchus was found to be free of endobronchial lesions. Right upper lobe with the apical-posterior and anterior segments, bronchus intermedius, right middle lobe, medial lateral segments and all basilar segments right lower lobe were found to be free of endobronchial lesions. A small amount of mucopurulence secretion was lavaged from right lower lobe basal segments until clear. Left tracheobronchial tree was explored and a [id number] degree of global inflammatory mucosal change was seen with mucous pitting visible. Left upper lobe with the apical-posterior and anterior segments, lingular subdivision and left lower lobe were free of endobronchial lesions with a moderate amount of mucoviscous and mucopurulent secretion lavaged from the left tracheobronchial tree in each lobar segment until clear. No brushings or biopsies were deemed necessary. The procedure was terminated. The patient was given a nebulizer treatment with Xopenex 1.25 mg and appeared to tolerate the procedure and remained hemodynamically stable with no further signs of respiratory compromise. We will await microbiological and cytologic examination of the bronchial washings. I attest to the content of the Intraoperative Record and any orders documented therein. Any exception s are noted below.
--- NOTE | 2018-02-11 19:10 | Progress Note ---
Internal Med Progress Note Date of Service: February 11, 2018. Provider Documentation: SUBJECTIVE: Patient s/p bronchoscopy. Patient tolerated the bronchoscopy. Also have hematuria in arcos more today. Denies abdominal or pelvic pain OBJECTIVE: Exam: General- no acute distress Eyes- EOMI Neck- no JVD Lungs- but good air entry, no wheezing Heart- regular rate Abdomen- soft, nontender, + bowel sounds Extremities- slight lower extremity edema Neuro - awake and alert ASSESSMENT & PLAN: 72 year old M who was recently [facility] was treated for pneumonia with also echocardiogram of grade 2 diastolic dysfunction and discharged with oral antibiotic and transferred from [facility] for worsening acute respiratory failure and transferred to the ICU of [facility] on 01/11/18. Transferred out of ICU on 01/13/18. Patient was then discharged on 01/21/18. Patient returns to the hospital emergency room on 02/08/18. Patient reports that has been again having more coughing with clear sputum and more dyspnea. CT Chest without Contrast 1. Interval development of diffuse lung infiltrates evidenced by diffuse added density of the lungs. This is concerning for active inflammation or acute atypical pneumonia. Less likely this may represent pulmonary edema. 2. Resolution of prior reticulonodular infiltrates, including a 1.4 cm right lower lobe nodular consolidation. 3. Background apical predominant emphysematous changes. 4. Findings could suggest chronic aspiration. Additionally, evidence of layering debris in the right mainstem bronchus further raises concern for aspiration. 5. Post surgical changes of coronary artery bypass Plan Pneumonia vs other pulmonary etiologies -was started broad spectrum antibiotics given recent hospitalizations with Vancomycin and Zosyn on 02/09/18 -sputum culture light normal iván -blood culture results negative - Vancomycin stopped on 02/10/18. Continue Zosyn -patient s/p bronchoscopy 02/11/18. Continue Zosyn until further bronchoscopy culture results return Compensated CHF as per cardiology service -Cardiac history of CAD with CABG and PCI: Continue spirolactone, continue metoprolol succinate, Continue aspirin, rosuvastatin, ranexa. -troponins negative on this admission -cardiology service does not deem patient to be in acute CHF exacerbation and lung findings on this admission is attributed to lung process such as pneumonia , also that there is no need for cardiac catheterization at this time (Compensated congestive heart failure signs and symptoms. No current evidence of acute decompensated systolic or diastolic congestive heart failure.) Fluid Management -monitor renal function and urine output while on diuretics (oral Lasix BID) for chronic CHF -HILARY likely from diuretic use -creatinine downtrending -IV fluids given today, hold diuretics Hematuria -has arcos for urinary retention -hematuria in arcos bag -IV fluids given today, hold diuretics History of recent home oxygen use -Continue oxygen Patient has smoking history in the past but quit for years Allergies to sulfa antibiotics but no known reactions to Lasix Full Code DVT ppx: heparin subc held and switched to SCDs due to hematuria Family [phone] Vital Signs: Date Time Temp Pulse Resp B/P (MAP) Pulse Ox O2 Delivery O2 Flow Rate FiO2 02/11/18 16:00 98 Nasal Cannula 3.0 02/11/18 15:09 36.4 70 18 92/61 (71) 100 Nasal Cannula 3.0 02/11/18 13:50 74 20 98/65 (76) 95 Nasal Cannula 3.0 02/11/18 13:20 80 18 101/68 (79) 99 Nasal Cannula 3.0 02/11/18 12:50 86 18 81/58 (66) 99 Nasal Cannula 3.0 02/11/18 12:30 Oxymask 02/11/18 12:22 36.4 84 20 124/75 (91) 88 Nasal Cannula 3.0 02/11/18 12:05 83 21 109/62 94 Nasal Cannula 4 02/11/18 12:00 81 21 122/72 96 Nasal Cannula 4 02/11/18 11:55 81 21 130/82 95 Mask 6 02/11/18 11:50 80 18 142/92 94 Mask 6 02/11/18 11:45 81 16 97/57 100 Mask 6 02/11/18 11:40 80 22 107/64 100 Mask 6 02/11/18 11:30 81 10 93/64 91 Mask 6 02/11/18 11:17 84 7 122/69 91 Nasal Cannula 3 02/11/18 08:00 Nasal Cannula 3.0 02/11/18 07:46 36.5 74 20 101/62 (75) 93 Nasal Cannula 3.0 02/11/18 04:05 94 Nasal Cannula 3.0 02/11/18 02:06 36.5 74 18 106/63 (77) 94 Nasal Cannula 3.0 02/11/18 00:05 95 Nasal Cannula 3.0 02/10/18 23:45 36.5 73 17 98/60 (73) 95 Nasal Cannula 3.0 02/10/18 20:18 36.7 83 20 102/65 (77) 97 Nasal Cannula 3.0 02/10/18 20:00 95 Nasal Cannula 3.0 Lab Results: Results Past 24 Hours Test 02/11/18 05:23 02/11/18 09:19 02/11/18 11:47 Range/Units White Blood Count 6.94 4.8-10.8 K/uL Red Blood Count 3.30 4.7-6.1 M/uL Hemoglobin 9.5 14.0-18.0 g/dL Hematocrit 29.5 42-52 % Mean Corpuscular Volume 89.4 80-100 fL Mean Corpuscular Hemoglobin 28.8 25-34 pg Mean Corpuscular Hemoglobin Concent 32.2 32-36 g/dl Platelet Count 182 130-400 K/uL Mean Platelet Volume 9.0 7.4-10.4 fL Neutrophils (%) (Auto) 58.3 % Lymphocytes (%) (Auto) 26.4 % Monocytes (%) (Auto) 8.8 % Eosinophils (%) (Auto) 5.0 % Basophils (%) (Auto) 0.1 % Neutrophils # (Auto) 4.04 1.4-6.5 K/uL Lymphocytes # (Auto) 1.83 1.2-3.4 K/uL Monocytes # (Auto) 0.61 0.11-0.59 K/uL Eosinophils # (Auto) 0.35 0-0.5 K/uL Basophils # (Auto) 0.01 0-0.2 K/uL RDW Standard Deviation 52.8 36.4-46.3 fL RDW Coefficient of Variation 16.2 11.5-14.5 % Immature Granulocyte % (Auto) 1.4 % Immature Granulocyte # (Auto) 0.10 0.00-0.02 K/uL Creatinine 1.42 0.60-1.40 mg/dl Est Creatinine Clear Calc Drug Dose 56.1 ml/min Estimated GFR () 57.6 Estimated GFR (Non- 49.7 Urine Color RED Urine Appearance CLEAR CLEAR Urine pH 4.5-7.5 Urine Specific [place] 1.009 1.000-1.030 Urine Protein NEG Urine Glucose (UA) NEG Urine Ketones NEG Urine Occult Blood NEG Urine Nitrite NEG Urine Bilirubin NEG Urine Urobilinogen NEG Urine Leukocyte Esterase NEG Urine RBC >30 0-4 /hpf Urine WBC 10-30 0-5 /hpf Urine Epithelial Cells 0-5 0-5 /lpf Urine Bacteria 3+ NEG Microbiology Results 02/11/18 Fungal Smear, Received Pending 02/11/18 Fungal Culture, Received Pending 02/11/18 Acid Fast Stain, Received Pending 02/11/18 Mycobacterial Culture, Received Pending 02/11/18 Gram Stain, Received Pending 02/11/18 Bronchoalveolar Lavage Culture, Received Pending 02/11/18 Urine Culture, Received Pending
[2018-02-11] MEDS: ROSUVASTATIN CALCIUM 20 MG TAB PO SCH (20:53)
[2018-02-12] VITALS (11 sets, daily range): BP systolic 93–101; BP diastolic 58–66; PULSE 69–89; TEMP 36.4–37; O2SAT 91–99
[2018-02-12] MEDS: PIPERACILL/TAZOBAC IV 3.375 GM in D5W 100ML IV SCH ×3 (02:35→18:38)
[2018-02-12 06:16] LABS: BASO % 0.2 %; BASO ABS # 0.01 K/uL (0-0.2); EOS % 4.8 %; HEMATOCRIT 32.2 % (42-52); HEMOGLOBIN 10.3 g/dL (14.0-18.0); IG# 0.06 K/uL (0.00-0.02); LYMPH % 27.4 %; LYMPH ABS # 1.72 K/uL (1.2-3.4); MEAN CELL VOLUME 89.4 fL (80-100); MEAN CORPUSCULAR HEMOGLOBIN 28.6 pg (25-34); MEAN PLATELET VOLUME 8.9 fL (7.4-10.4); MONO % 9.4 %; MONO ABS # 0.59 K/uL (0.11-0.59); NEUT % 57.2 %; NEUT ABS # 3.59 K/uL (1.4-6.5); PLATELET COUNT 157 K/uL (130-400); RED CELL DISTRIBUTION WIDTH CV 16.1 % (11.5-14.5); RED CELL DISTRIBUTION WIDTH SD 52.5 fL (36.4-46.3); WHITE BLOOD COUNT 6.27 K/uL (4.8-10.8)
[2018-02-12 07:02] LABS: ALBUMIN 2.2 gm/dl (3.4-5.0); CREATININE 1.34 mg/dl (0.60-1.40); TOTAL PROTEIN 7.5 gm/dl (6.4-8.2)
[2018-02-12] MEDS: PANTOprazole SOD 40 MG TAB PO SCH (07:43)
[2018-02-12] MEDS: ASPIRIN 81 MG ECTAB PO SCH (07:44)
[2018-02-12] MEDS: METOPROLOL SUCC 50MG EXT REL TAB PO SCH ×3 (07:44→21:12)
[2018-02-12] MEDS: SPIRONOLACTONE 25 MG TAB PO SCH (07:44)
[2018-02-12] MEDS: RANOLAZINE 500 MG ER TAB PO SCH ×2 (07:44→21:11)
[2018-02-12 08:20] LABS: POTASSIUM 3.5 mmol/L (3.5-5.1)
--- NOTE | 2018-02-12 10:26 | DIAGNOSTIC IMAGING REPORT ---
CHEST 2 VIEWS ROUTINE HISTORY: Abnormal chest x-ray. Follow-up. COMPARISON: Chest 02/10/2018. FINDINGS: There are low lung volumes. No pneumothorax. Cardiomegaly remains unchanged. There are poststernotomy changes. Diffuse interstitial thickening persists. There is improved aeration within the left lung base. No pleural effusions. Emphysema. IMPRESSION: 1. Improved aeration within the left lung base suggestive of a resolving pneumonia. 2. Cardiomegaly and chronic interstitial thickening persists. Electronically signed by: Igor Bocanegra M.D. 02/12/2018 10:24 AM Dictated Date/Time: 02/12/2018 10:23 AM
--- NOTE | 2018-02-12 12:37 | PULMONARY PROGRESS NOTE ---
DATE: 02/12/2018 TIME: 11:55 a.m. SUBJECTIVE: The patient is feeling better. His shortness of breath overall is improved. He is still requiring oxygen. Earlier this morning, he was decreased to 2 liters, but his sats went down to 88%. On 3 liters, he is now at 93-94%. He had bronchoscopy done yesterday. He tolerated the procedure well. The preliminary micro report from the scope is gram-negative bacilli, but a final identification is pending. The quantity was reported as few, but he had been on antibiotics. The patient relates that he has not had any lung trouble in the past, but it only started in the last 2 months or so. Review of his x-rays and CAT scans would suggest something much more chronic than that in addition to the acute problem. He has very significant emphysematous changes as well as probable underlying interstitial disease. OBJECTIVE: GENERAL: The patient appeared comfortable. VITAL SIGNS: Temperature is 36.6. He has not had any fevers. Heart rate is 88 per minute. The rhythm is regular. Blood pressure 101/65. LUNGS: Lung zamora reveal diffuse rales bilaterally. I have not examined him previously and thus I do not know if these are increased or decreased. Respiratory rate was 18. Saturation was 94% on 3 liters. EXTREMITIES: Showed no edema. The patient does have a Porter catheter in place. LABORATORY DATA: White count today is 16.27. It had been 14.85 on admission. Hemoglobin is 10.3. Platelets are 157,000. Electrolytes show sodium 137, potassium 3.5, chloride 98, bicarbonate 33. BUN is 12 with a creatinine of 1.34. AST was elevated at 41. Upper limit of normal would be 37. Albumin is low at 2.2, but globulin is high at 5.3. IMPRESSION: 1. Bilateral pneumonia. 2. Emphysema. 3. Interstitial lung disease. COMMENTS: Dr. Campuzano did a scope yesterday. The secretions were mild to moderate on the left side. They were minimal on the right. There is a preliminary growth of gram-negative bacilli. The final identification is still pending. I would not change antibiotics until the final culture is available. The patient is ordered nebulizer treatments, but only on a p.r.n. basis. I do not believe he is getting any. Consideration is given to giving him treatments 3 times a day on a regular basis and see if this improves his respiratory status. The globulin is elevated. Consider protein electrophoresis if it has not been done. I am going to order a hypersensitivity pneumonitis profile.
--- NOTE | 2018-02-12 15:28 | Progress Note ---
Internal Med Progress Note Date of Service: February 12, 2018. Provider Documentation: SUBJECTIVE: Patient's urine less red today. patient reports that his breathing is subjectively better but still dyspneic with exertion. Denies pain OBJECTIVE: Exam: General- no acute distress Eyes- EOMI Neck- no JVD Lungs- crackles, no wheezing, no use of accessory muscles, on nasal cannula Heart- regular rate Abdomen- soft, nontender, + bowel sounds Extremities- no gross edema Neuro - awake and alert ASSESSMENT & PLAN: 72 year old M who was recently discharged from [facility] after he was treated for pneumonia with also echocardiogram of grade 2 diastolic dysfunction and discharged with oral antibiotic and transferred from [facility] for worsening acute respiratory failure and transferred to the ICU of [facility] on 01/11/18. Transferred out of ICU on 01/13/18. Patient was then discharged on 01/21/18. Patient returns to the hospital emergency room on 02/08/18. Patient reports that has been again having more coughing with clear sputum and more dyspnea. CT Chest without Contrast 1. Interval development of diffuse lung infiltrates evidenced by diffuse added density of the lungs. This is concerning for active inflammation or acute atypical pneumonia. Less likely this may represent pulmonary edema. 2. Resolution of prior reticulonodular infiltrates, including a 1.4 cm right lower lobe nodular consolidation. 3. Background apical predominant emphysematous changes. 4. Findings could suggest chronic aspiration. Additionally, evidence of layering debris in the right mainstem bronchus further raises concern for aspiration. 5. Post surgical changes of coronary artery bypass Plan 1. Bilateral pneumonia. 2. Emphysema. 3. Interstitial lung disease.Pneumonia vs other pulmonary etiologies -was started broad spectrum antibiotics given recent hospitalizations with Vancomycin and Zosyn on 02/09/18 -sputum culture light normal iván -blood culture results negative - Vancomycin stopped on 02/10/18. Continue Zosyn -patient s/p bronchoscopy 02/11/18. The secretions were mild to moderate on the left side. They were minimal on the right. There is a preliminary growth of gram-negative bacilli. The final identification is still pending. Continue Zosyn until further bronchoscopy culture results return -as per pulmonary service, will change a nebulizer treatment as 3 times a day as scheduled instead of prn. will have atrovent TID, Xopenex will be for prn -will send protein electrophoresis as recommended by pulmonary service -pulmonary service sending hypersensitivity pneumonitis profile Compensated CHF as per cardiology service -Cardiac history of CAD with CABG and PCI: Continue spirolactone, continue metoprolol succinate, Continue aspirin, rosuvastatin, ranexa. -troponins negative on this admission -cardiology service does not deem patient to be in acute CHF exacerbation and lung findings on this admission is attributed to lung process such as pneumonia , also that there is no need for cardiac catheterization at this time (Compensated congestive heart failure signs and symptoms. No current evidence of acute decompensated systolic or diastolic congestive heart failure.) Fluid Management -monitor renal function and urine output while on diuretics (oral Lasix BID) for chronic CHF -HILARY likely from diuretic use -creatinine downtrended but stable -will resume Lasix which was held on 02/12/18 while hematuria assessed Hematuria -has arcos for urinary retention -hematuria between 02/10/18 and 02/11/18, heparin subcutaneous stopped, IV fluids was given and Lasix was held -hematuria appears resolved and Lasix restarted, use SCDs instead of heparin subcut History of recent home oxygen use -Continue oxygen Patient has smoking history in the past but quit for years Allergies to sulfa antibiotics but no known reactions to Lasix Full Code DVT ppx: SCDs due to hematuria Family [phone] Vital Signs: Date Time Temp Pulse Resp B/P (MAP) Pulse Ox O2 Delivery O2 Flow Rate FiO2 02/12/18 12:00 Nasal Cannula 3.0 02/12/18 11:42 36.6 89 18 101/65 (77) 98 2.0 02/12/18 09:54 99/62 (74) 02/12/18 08:00 Nasal Cannula 3.0 02/12/18 07:48 93 Nasal Cannula 3.0 02/12/18 06:51 37.0 70 18 93/58 (70) 95 3.0 02/12/18 04:00 Nasal Cannula 3.0 02/12/18 03:30 36.5 69 16 101/66 (78) 96 02/12/18 00:05 36.4 69 18 97/59 (72) 97 Room Air 3.5 02/12/18 00:01 Nasal Cannula 3.0 02/11/18 20:00 95 Nasal Cannula 3.0 02/11/18 19:13 36.5 74 18 98/61 (73) 98 Nasal Cannula 3.0 02/11/18 16:00 98 Nasal Cannula 3.0 Lab Results: Results Past 24 Hours Test 02/12/18 05:55 02/12/18 07:38 02/12/18 12:58 Range/Units White Blood Count 6.27 4.8-10.8 K/uL Red Blood Count 3.60 4.7-6.1 M/uL Hemoglobin 10.3 14.0-18.0 g/dL Hematocrit 32.2 42-52 % Mean Corpuscular Volume 89.4 80-100 fL Mean Corpuscular Hemoglobin 28.6 25-34 pg Mean Corpuscular Hemoglobin Concent 32.0 32-36 g/dl Platelet Count 157 130-400 K/uL Mean Platelet Volume 8.9 7.4-10.4 fL Neutrophils (%) (Auto) 57.2 % Lymphocytes (%) (Auto) 27.4 % Monocytes (%) (Auto) 9.4 % Eosinophils (%) (Auto) 4.8 % Basophils (%) (Auto) 0.2 % Neutrophils # (Auto) 3.59 1.4-6.5 K/uL Lymphocytes # (Auto) 1.72 1.2-3.4 K/uL Monocytes # (Auto) 0.59 0.11-0.59 K/uL Eosinophils # (Auto) 0.30 0-0.5 K/uL Basophils # (Auto) 0.01 0-0.2 K/uL RDW Standard Deviation 52.5 36.4-46.3 fL RDW Coefficient of Variation 16.1 11.5-14.5 % Immature Granulocyte % (Auto) 1.0 % Immature Granulocyte # (Auto) 0.06 0.00-0.02 K/uL Sodium Level 137 136-145 mmol/L Potassium Level 3.5 3.5-5.1 mmol/L Chloride Level 98 98-107 mmol/L Carbon Dioxide Level 33 21-32 mmol/L Anion Gap 6.0 3-11 mmol/L Blood Urea Nitrogen 12 7-18 mg/dl Creatinine 1.34 0.60-1.40 mg/dl Est Creatinine Clear Calc Drug Dose 59.5 ml/min Estimated GFR () 61.8 Estimated GFR (Non- 53.3 BUN/Creatinine Ratio 9.1 10-20 Random Glucose 101 70-99 mg/dl Calcium Level 9.0 8.5-10.1 mg/dl Total Bilirubin 0.7 0.2-1 mg/dl Aspartate Amino Transf (AST/SGOT) 41 15-37 U/L Alanine Aminotransferase (ALT/SGPT) 26 12-78 U/L Alkaline Phosphatase 97 45-117 U/L Total Protein 7.5 6.4-8.2 gm/dl Albumin 2.2 3.4-5.0 gm/dl Globulin 5.3 2.5-4.0 gm/dl Albumin/Globulin Ratio 0.4 0.9-2
[2018-02-12] MEDS: LACTOBACILLUS ACIDOPHILUS 1 GM PACK PO SCH (16:28)
[2018-02-12] MEDS: FUROSEMIDE 40 MG TAB PO SCH (18:55)
[2018-02-12] MEDS: IPRATROPIUM BROMIDE NEB SOLN 0.02% 2.5 ML VIAL INH SCH (19:13)
[2018-02-12] MEDS: ROSUVASTATIN CALCIUM 20 MG TAB PO SCH (21:11)
[2018-02-13] VITALS (8 sets, daily range): BP systolic 96–136; BP diastolic 62–74; PULSE 73–98; TEMP 36.4–36.7; O2SAT 90–99
[2018-02-13] MEDS: PIPERACILL/TAZOBAC IV 3.375 GM in D5W 100ML IV SCH ×2 (01:48→10:35)
[2018-02-13 06:26] LABS: BASO % 0.3 %; BASO ABS # 0.02 K/uL (0-0.2); EOS % 2.7 %; EOS ABS # 0.19 K/uL (0-0.5); HEMATOCRIT 30.7 % (42-52); IG# 0.07 K/uL (0.00-0.02); LYMPH % 23.9 %; LYMPH ABS # 1.65 K/uL (1.2-3.4); MEAN CELL VOLUME 88.5 fL (80-100); MEAN CORPUSCULAR HEMOGLOBIN 28.8 pg (25-34); MEAN CORPUSCULAR HGB CONC 32.6 g/dl (32-36); MEAN PLATELET VOLUME 8.9 fL (7.4-10.4); MONO % 8.2 %; MONO ABS # 0.57 K/uL (0.11-0.59); NEUT % 63.9 %; NEUT ABS # 4.41 K/uL (1.4-6.5); PLATELET COUNT 154 K/uL (130-400); RED CELL DISTRIBUTION WIDTH CV 16.4 % (11.5-14.5); RED CELL DISTRIBUTION WIDTH SD 52.5 fL (36.4-46.3); WHITE BLOOD COUNT 6.91 K/uL (4.8-10.8)
[2018-02-13] MEDS: IPRATROPIUM BROMIDE NEB SOLN 0.02% 2.5 ML VIAL INH SCH ×3 (06:53→19:02)
[2018-02-13 07:00] LABS: ALBUMIN 2.2 gm/dl (3.4-5.0); CALCIUM 8.9 mg/dl (8.5-10.1); CREATININE 1.25 mg/dl (0.60-1.40); POTASSIUM 3.3 mmol/L (3.5-5.1); TOTAL PROTEIN 7.3 gm/dl (6.4-8.2)
[2018-02-13] MEDS: METOPROLOL SUCC 50MG EXT REL TAB PO SCH ×2 (07:30→21:03)
[2018-02-13] MEDS: RANOLAZINE 500 MG ER TAB PO SCH ×2 (07:31→21:04)
[2018-02-13] MEDS: LACTOBACILLUS ACIDOPHILUS 1 GM PACK PO SCH ×3 (07:31→16:49)
[2018-02-13] MEDS: FUROSEMIDE 40 MG TAB PO SCH ×2 (07:31→16:50)
[2018-02-13] MEDS: ASPIRIN 81 MG ECTAB PO SCH (07:31)
[2018-02-13] MEDS: SPIRONOLACTONE 25 MG TAB PO SCH (07:31)
[2018-02-13] MEDS: PANTOprazole SOD 40 MG TAB PO SCH (07:36)
[2018-02-13] MEDS ORDERED: POTASSIUM CHLORIDE 20 MEQ TABCR PO STA (08:31)
--- NOTE | 2018-02-13 11:39 | PULMONARY PROGRESS NOTE ---
DATE: 02/13/2018 TIME: 11:15 a.m. SUBJECTIVE: The patient feels a little congested this morning. It sounds like it began after a nebulizer treatment. When speaking with the patient, it seemed like he was trying to take a deep breath with each puff. I suspect this was making him cough. The treatment was only ipratropium. I am going to change the levalbuterol to t.i.d. as well. The patient still feels weak. He has not done any significant ambulation. OBJECTIVE: GENERAL: The patient did not look in any distress. VITAL SIGNS: Temperature was 36.4. He has been afebrile. Heart rate is 73 per minute. The rhythm is regular. Blood pressure is 105/64. LUNGS: Auscultation reveals diffuse rales bilaterally. He did not cough during the exam. No wheezing was heard. Respiratory rate is 18. Bronchial washings were noted to be positive for Serratia marcescens. The sensitivities were pansensitive. It was noted to be sensitive to the Zosyn he has been on, but the MICU was reported as less than 16. LABORATORY DATA: White count today was 6.91. Hemoglobin 10. Platelets 154,000. Protein electrophoresis is pending. Hypersensitivity pneumonitis profile is pending. IMPRESSIONS: 1. Pneumonia bilaterally -- culture positive for Serratia. 2. Emphysema. 3. Interstitial lung disease. RECOMMENDATIONS: 1. Advise physical therapy. 2. We would suggest changing the antibiotic to levofloxacin, which appear sensitive and could be given orally. 3. Change the levalbuterol to t.i.d. along with the ipratropium.
[2018-02-13] MEDS ORDERED: LEVOFLOXACIN 750 MG TAB PO ONE (11:45)
[2018-02-13] MEDS: LEVALBUTEROL 1.25MG/0.5ML NEB INH SCH ×2 (13:59→19:02)
--- NOTE | 2018-02-13 20:43 | Progress Note ---
Internal Med Progress Note Date of Service: February 13, 2018. Provider Documentation: SUBJECTIVE: Patient was examined earlier today as he was having trial of void. Patient continues to have similar respiratory complaints of shortness of breath OBJECTIVE: Exam: General- no acute distress Eyes- EOMI Neck- no JVD Lungs- crackles, no wheezing, no use of accessory muscles, on nasal cannula Heart- regular rate Abdomen- soft, nontender, + bowel sounds Extremities- no gross edema Neuro - awake and alert ASSESSMENT & PLAN: 72 year old M who was recently discharged from [facility] on 12/29/17 under [facility] after he was treated for pneumonia with also echocardiogram of grade 2 diastolic dysfunction and discharged with oral antibiotic and transferred from [facility] for worsening acute respiratory failure and transferred to the ICU of [facility] on 01/11/18. Transferred out of ICU on 01/13/18. Patient was then discharged on 01/21/18. Patient returns to the hospital emergency room on 02/08/18. Patient reports that has been again having more coughing with clear sputum and more dyspnea. CT Chest without Contrast 1. Interval development of diffuse lung infiltrates evidenced by diffuse added density of the lungs. This is concerning for active inflammation or acute atypical pneumonia. Less likely this may represent pulmonary edema. 2. Resolution of prior reticulonodular infiltrates, including a 1.4 cm right lower lobe nodular consolidation. 3. Background apical predominant emphysematous changes. 4. Findings could suggest chronic aspiration. Additionally, evidence of layering debris in the right mainstem bronchus further raises concern for aspiration. 5. Post surgical changes of coronary artery bypass Plan 1. Bilateral pneumonia. 2. Emphysema. 3. Interstitial lung disease.Pneumonia vs other pulmonary etiologies -was started broad spectrum antibiotics given recent hospitalizations with Vancomycin and Zosyn on 02/09/18 -sputum culture light normal iván -blood culture results negative - Vancomycin stopped on 02/10/18. Continue Zosyn -patient s/p bronchoscopy 02/11/18. The secretions were mild to moderate on the left side. They were minimal on the right. There is a preliminary growth of gram-negative bacilli which is a pansensitive SERRATIA MARCESCENS. Zosyn stopped on 02/13/18 and switched to Levofloxacin as per pulmonary consult. ID consult also requested for further input. -as per pulmonary service, nebulizer treatment as 3 times a day as scheduled instead of prn -pulmonary service sent hypersensitivity pneumonitis profile, pending results -protein electrophoresis sent as recommended by pulmonary service, pending results Compensated CHF as per cardiology service -Cardiac history of CAD with CABG and PCI: Continue spirolactone, continue metoprolol succinate, Continue aspirin, rosuvastatin, ranexa. -troponins negative on this admission -cardiology service does not deem patient to be in acute CHF exacerbation and lung findings on this admission is attributed to lung process such as pneumonia , also that there is no need for cardiac catheterization at this time (Compensated congestive heart failure signs and symptoms. No current evidence of acute decompensated systolic or diastolic congestive heart failure.) Fluid Management -monitor renal function and urine output while on diuretics (oral Lasix BID) for chronic CHF -HILARY likely from diuretic use -creatinine downtrended but stable -will resume Lasix which was held on 02/12/18 while hematuria assessed, continue Lasix, replete electrolytes including potassium Hematuria -has arcos for urinary retention -hematuria between 02/10/18 and 02/11/18, heparin subcutaneous stopped, IV fluids was given and Lasix was held -hematuria appears resolved and patient had arcos removed on 02/13/18 and completed trial of void History of recent home oxygen use -Continue oxygen Patient has smoking history in the past but quit for years Allergies to sulfa antibiotics but no known reactions to Lasix PT/OT evaluations requested Full Code DVT ppx: SCDs due to previous hematuria Family [phone] Vital Signs: Date Time Temp Pulse Resp B/P (MAP) Pulse Ox O2 Delivery O2 Flow Rate FiO2 02/13/18 19:33 36.6 90 20 102/66 (78) 95 Nasal Cannula 3.0 02/13/18 16:00 Nasal Cannula 3.0 02/13/18 15:16 36.4 87 16 108/70 (83) 95 Nasal Cannula 3.0 02/13/18 13:59 83 18 90 Nasal Cannula 3.0 02/13/18 12:00 Nasal Cannula 3.0 02/13/18 11:37 36.5 98 16 136/74 (94) 90 02/13/18 08:00 Nasal Cannula 3.0 02/13/18 07:10 36.4 73 18 105/64 (78) 99 5/20/18 06:56 75 16 99 Nasal Cannula 3.0 02/13/18 04:00 Nasal Cannula 3.0 02/13/18 03:11 36.7 76 18 97/62 (74) 98 Nasal Cannula 4.0 02/13/18 00:01 Nasal Cannula 4.0 02/12/18 23:06 36.9 79 19 95/62 (73) 99 Nasal Cannula 4.0 Lab Results: Results Past 24 Hours Test 02/13/18 05:56 Range/Units White Blood Count 6.91 4.8-10.8 K/uL Red Blood Count 3.47 4.7-6.1 M/uL Hemoglobin 10.0 14.0-18.0 g/dL Hematocrit 30.7 42-52 % Mean Corpuscular Volume 88.5 80-100 fL Mean Corpuscular Hemoglobin 28.8 25-34 pg Mean Corpuscular Hemoglobin Concent 32.6 32-36 g/dl Platelet Count 154 130-400 K/uL Mean Platelet Volume 8.9 7.4-10.4 fL Neutrophils (%) (Auto) 63.9 % Lymphocytes (%) (Auto) 23.9 % Monocytes (%) (Auto) 8.2 % Eosinophils (%) (Auto) 2.7 % Basophils (%) (Auto) 0.3 % Neutrophils # (Auto) 4.41 1.4-6.5 K/uL Lymphocytes # (Auto) 1.65 1.2-3.4 K/uL Monocytes # (Auto) 0.57 0.11-0.59 K/uL Eosinophils # (Auto) 0.19 0-0.5 K/uL Basophils # (Auto) 0.02 0-0.2 K/uL RDW Standard Deviation 52.5 36.4-46.3 fL RDW Coefficient of Variation 16.4 11.5-14.5 % Immature Granulocyte % (Auto) 1.0 % Immature Granulocyte # (Auto) 0.07 0.00-0.02 K/uL Sodium Level 136 136-145 mmol/L Potassium Level 3.3 3.5-5.1 mmol/L Chloride Level 98 98-107 mmol/L Carbon Dioxide Level 33 21-32 mmol/L Anion Gap 5.0 3-11 mmol/L Blood Urea Nitrogen 11 7-18 mg/dl Creatinine 1.25 0.60-1.40 mg/dl Est Creatinine Clear Calc Drug Dose 63.7 ml/min Estimated GFR () 67.2 Estimated GFR (Non- 58.0 BUN/Creatinine Ratio 8.9 10-20 Random Glucose 110 70-99 mg/dl Calcium Level 8.9 8.5-10.1 mg/dl Total Bilirubin 0.7 0.2-1 mg/dl Aspartate Amino Transf (AST/SGOT) 37 15-37 U/L Alanine Aminotransferase (ALT/SGPT) 29 12-78 U/L Alkaline Phosphatase 92 45-117 U/L Pro-B-Type Natriuretic Peptide 1009 0-900 pg/ml Total Protein 7.3 6.4-8.2 gm/dl Albumin 2.2 3.4-5.0 gm/dl Globulin 5.1 2.5-4.0 gm/dl Albumin/Globulin Ratio 0.4 0.9-2 Microbiology Results 02/13/18 C.difficile Toxin B Gene (PCR) - Final, Complete No C. difficile toxin B gene detected
[2018-02-13] MEDS: ROSUVASTATIN CALCIUM 20 MG TAB PO SCH (21:04)
[2018-02-14 01:13] VITALS: PULSE 83
[2018-02-14 04:27] VITALS: BP 102/62; PULSE 82; TEMP 36.6; O2SAT 97
[2018-02-14 06:20] LABS: BASO % 0.1 %; BASO ABS # 0.01 K/uL (0-0.2); EOS ABS # 0.15 K/uL (0-0.5); HEMATOCRIT 32.4 % (42-52); HEMOGLOBIN 10.1 g/dL (14.0-18.0); IG# 0.06 K/uL (0.00-0.02); LYMPH % 23.5 %; LYMPH ABS # 1.76 K/uL (1.2-3.4); MEAN CELL VOLUME 90.3 fL (80-100); MEAN CORPUSCULAR HEMOGLOBIN 28.1 pg (25-34); MEAN CORPUSCULAR HGB CONC 31.2 g/dl (32-36); MEAN PLATELET VOLUME 9.1 fL (7.4-10.4); MONO % 8.3 %; MONO ABS # 0.62 K/uL (0.11-0.59); NEUT % 65.3 %; NEUT ABS # 4.89 K/uL (1.4-6.5); PLATELET COUNT 154 K/uL (130-400); RED CELL DISTRIBUTION WIDTH SD 54.1 fL (36.4-46.3); WHITE BLOOD COUNT 7.49 K/uL (4.8-10.8)
[2018-02-14 06:55] LABS: ALBUMIN 2.4 gm/dl (3.4-5.0); CALCIUM 9.2 mg/dl (8.5-10.1); CREATININE 1.24 mg/dl (0.60-1.40); POTASSIUM 3.7 mmol/L (3.5-5.1); TOTAL PROTEIN 7.4 gm/dl (6.4-8.2)
[2018-02-14] MEDS: IPRATROPIUM BROMIDE NEB SOLN 0.02% 2.5 ML VIAL INH SCH ×2 (06:57→14:07)
[2018-02-14] MEDS: LEVALBUTEROL 1.25MG/0.5ML NEB INH SCH ×2 (06:57→14:08)
[2018-02-14 07:16] VITALS: BP 105/68; PULSE 76; TEMP 36.6; O2SAT 99
[2018-02-14] MEDS: RANOLAZINE 500 MG ER TAB PO SCH (08:11)
[2018-02-14] MEDS: METOPROLOL SUCC 50MG EXT REL TAB PO SCH (08:11)
[2018-02-14] MEDS: ASPIRIN 81 MG ECTAB PO SCH (08:11)
[2018-02-14] MEDS: SPIRONOLACTONE 25 MG TAB PO SCH (08:11)
[2018-02-14] MEDS: FUROSEMIDE 40 MG TAB PO SCH (08:11)
[2018-02-14] MEDS: LACTOBACILLUS ACIDOPHILUS 1 GM PACK PO SCH ×2 (08:12→11:42)
[2018-02-14] MEDS: PANTOprazole SOD 40 MG TAB PO SCH (08:12)
[2018-02-14 10:58] VITALS: BP 119/76; PULSE 88; TEMP 36.3; O2SAT 95
[2018-02-14] MEDS ORDERED: LEVOFLOXACIN 750 MG TAB PO SCH (11:00)
--- NOTE | 2018-02-14 12:05 | PULMONARY PROGRESS NOTE ---
DATE: 02/14/2018 TIME: 11:30 a.m. SUBJECTIVE: The patient states he feels much better. He is convinced that 1 hour after taking levofloxacin that he felt better. I explained to him I would not expect it to work that quickly. He has been having loose bowel movements. C. diff test was obtained and was negative. The patient is bothered by the nebulizer treatments. He states he is still coughing and getting lightheaded. We will change those back to p.r.n. only. The patient states that he had physical therapy today. They did not walk him outside of the room, however. He states he was just doing some exercises on his bed or close to his bed. OBJECTIVE: GENERAL: The patient appears comfortable. VITAL SIGNS: Temperature is 36.3. HEART: Heart rate is 80 per minute. The rhythm is regular. Blood pressure 119/76. LUNGS: Auscultation of the lung zamora revealed rales posteriorly. These sound more dry. Respiratory rate is 20 breaths per minute. Saturation 95% on 2 liters. EXTREMITIES: Showed no cyanosis, clubbing or edema. LABORATORY DATA: White count today is 7.49. Hemoglobin 10.1. Platelets 154,000. Electrolytes today 138 sodium, potassium 3.7, chloride 100, bicarb 33. The BUN is 12 with a creatinine of 1.24. IMPRESSIONS: 1. Pneumonia, right lower lobe and left lower lobe, secondary to serratia. 2. Emphysema. 3. Interstitial lung disease. COMMENTS AND RECOMMENDATIONS: The patient seems to be feeling better. I would encourage having physical therapy walked the patient in the hallway. Only in this way can reassess when and if he is ready for discharge. I will change his neb treatments to p.r.n. as he is bothered by the neb treatments themselves. The patient will need pulmonary followup after discharge. This would likely be with Dr. Campuzano as he did bronchoscopy. I reinforced to the patient and his that the pneumonia is just one aspect of his case that ultimately still needs to be evaluated. We did order hypersensitivity pneumonitis profile.
[2018-02-14] MEDS ORDERED: LOPERAMIDE HCL 2 MG CAP PO PRN (13:30)
[2018-02-14] MEDS ORDERED: LOPERAMIDE HCL 2 MG CAP PO ONE (13:30)
[2018-02-14 15:28] VITALS: BP 134/79; PULSE 95; TEMP 36.7; O2SAT 94
[2018-02-14] MEDS ORDERED: LVQ750 PO (16:21)
[2018-02-14 16:29] VITALS: BP 134/79; PULSE 95; TEMP 36.7; O2SAT 94
--- NOTE | 2018-02-14 16:31 | Progress Note ---
Internal Med Progress Note Date of Service: February 14, 2018. Provider Documentation: SUBJECTIVE: Patient ambulated while on oxygen. Became Dyspneic and Tachycardic to the 140s. Patient insisted that despite symptoms he wishes to go home today against medical advice OBJECTIVE: Exam: General- no acute distress at rest Eyes- EOMI Neck- no JVD Lungs- crackles, no wheezing, no use of accessory muscles, on nasal cannula Heart- regular rate Abdomen- soft, nontender, + bowel sounds Extremities- no gross edema Neuro - awake and alert ASSESSMENT & PLAN: HOSPITAL COURSE 72 year old M who was recently [facility] was treated for pneumonia with also echocardiogram of grade 2 diastolic dysfunction and discharged with oral antibiotic and transferred from [facility] for worsening acute respiratory failure and transferred to the ICU of [facility] on 01/11/18. Transferred out of ICU on 01/13/18. Patient was then discharged on 01/21/18. Patient returns to the hospital emergency room on 02/08/18. Patient reports that has been again having more coughing with clear sputum and more dyspnea. CT Chest without Contrast 1. Interval development of diffuse lung infiltrates evidenced by diffuse added density of the lungs. This is concerning for active inflammation or acute atypical pneumonia. Less likely this may represent pulmonary edema. 2. Resolution of prior reticulonodular infiltrates, including a 1.4 cm right lower lobe nodular consolidation. 3. Background apical predominant emphysematous changes. 4. Findings could suggest chronic aspiration. Additionally, evidence of layering debris in the right mainstem bronchus further raises concern for aspiration. 5. Post surgical changes of coronary artery bypass Plan 1. Bilateral pneumonia. 2. Emphysema. 3. Interstitial lung disease.Pneumonia vs other pulmonary etiologies -was started broad spectrum antibiotics given recent hospitalizations with Vancomycin and Zosyn on 02/09/18 -sputum culture light normal iván -blood culture results negative - Vancomycin stopped on 02/10/18. Continue Zosyn -patient s/p bronchoscopy 02/11/18. The secretions were mild to moderate on the left side. They were minimal on the right. There is a preliminary growth of gram-negative bacilli which is a pansensitive SERRATIA MARCESCENS. Zosyn stopped on 02/13/18 and switched to Levofloxacin as per pulmonary consult. ID consult also requested for further input. -as per pulmonary service, nebulizer treatment as 3 times a day as scheduled instead of prn -pulmonary service sent hypersensitivity pneumonitis profile, pending results -protein electrophoresis sent as recommended by pulmonary service, pending results -02/14/18 Patient ambulated while on oxygen. Became Dyspneic and Tachycardic to the 140s. Patient insisted that despite symptoms he wishes to go home today against medical advice -Discharge Prescription made for 5 days of Levofloxacin of 750 mg daily as discussed with pulmonary doctor -Appointments made for patient to see pulmonary clinic [facility] at 1PM [facility] [address], [address] [place] [address] Wednesday through Wednesday, from 8:30 am to 5:00 pm Compensated CHF as per cardiology service -Cardiac history of CAD with CABG and PCI: Continue spirolactone, continue metoprolol succinate, Continue aspirin, rosuvastatin, ranexa. -troponins negative on this admission -cardiology service does not deem patient to be in acute CHF exacerbation and lung findings on this admission is attributed to lung process such as pneumonia , also that there is no need for cardiac catheterization at this time (Compensated congestive heart failure signs and symptoms. No current evidence of acute decompensated systolic or diastolic congestive heart failure.) Fluid Management -monitor renal function and urine output while on diuretics (oral Lasix BID) for chronic CHF -HILARY likely from diuretic use -creatinine downtrended but stable -will resume Lasix which was held on 02/12/18 while hematuria assessed, continue Lasix, replete electrolytes including potassium Hematuria -has arcos for urinary retention -hematuria between 02/10/18 and 02/11/18, heparin subcutaneous stopped, IV fluids was given and Lasix was held -hematuria appears resolved and patient had arcos removed on 02/13/18 and completed trial of void History of recent home oxygen use -Continue oxygen Patient has smoking history in the past but quit for years Allergies to sulfa antibiotics but no known reactions to Lasix PT/OT evaluations requested Full Code DVT ppx: SCDs due to previous hematuria Family [phone] DISCHARGE INSTRUCTIONS Discharge Against Medical Advice -Discharge Prescription made for 5 days of Levofloxacin of 750 mg daily as discussed with pulmonary doctor -Appointments made for patient to see pulmonary clinic [facility] at 1PM [facility] [address], [address] [place] [address] Wednesday through Wednesday, from 8:30 am to 5:00 pm Follow up with [address]. Duran 02/16/18 at 10:45 AM Vital Signs: Date Time Temp Pulse Resp B/P (MAP) Pulse Ox O2 Delivery O2 Flow Rate FiO2 02/14/18 15:28 36.7 95 20 134/79 (97) 94 Nasal Cannula 1.5 02/14/18 12:00 Nasal Cannula 3.0 02/14/18 10:58 36.3 88 22 119/76 (90) 95 Nasal Cannula 2.0 02/14/18 08:00 Nasal Cannula 3.0 02/14/18 07:16 36.6 76 18 105/68 (80) 99 Nasal Cannula 3.0 02/14/18 04:27 36.6 82 18 102/62 (75) 97 Nasal Cannula 3.0 02/14/18 04:02 Nasal Cannula 3.0 02/14/18 01:13 83 02/14/18 00:02 Nasal Cannula 3.0 02/13/18 22:42 36.5 79 18 96/62 (73) 99 Nasal Cannula 3.0 02/13/18 20:01 Nasal Cannula 3.0 02/13/18 19:33 36.6 90 20 102/66 (78) 95 Nasal Cannula 3.0 Lab Results: Results Past 24 Hours Test 02/14/18 05:43 Range/Units White Blood Count 7.49 4.8-10.8 K/uL Red Blood Count 3.59 4.7-6.1 M/uL Hemoglobin 10.1 14.0-18.0 g/dL Hematocrit 32.4 42-52 % Mean Corpuscular Volume 90.3 80-100 fL Mean Corpuscular Hemoglobin 28.1 25-34 pg Mean Corpuscular Hemoglobin Concent 31.2 32-36 g/dl Platelet Count 154 130-400 K/uL Mean Platelet Volume 9.1 7.4-10.4 fL Neutrophils (%) (Auto) 65.3 % Lymphocytes (%) (Auto) 23.5 % Monocytes (%) (Auto) 8.3 % Eosinophils (%) (Auto) 2.0 % Basophils (%) (Auto) 0.1 % Neutrophils # (Auto) 4.89 1.4-6.5 K/uL Lymphocytes # (Auto) 1.76 1.2-3.4 K/uL Monocytes # (Auto) 0.62 0.11-0.59 K/uL Eosinophils # (Auto) 0.15 0-0.5 K/uL Basophils # (Auto) 0.01 0-0.2 K/uL RDW Standard Deviation 54.1 36.4-46.3 fL RDW Coefficient of Variation 17.0 11.5-14.5 % Immature Granulocyte % (Auto) 0.8 % Immature Granulocyte # (Auto) 0.06 0.00-0.02 K/uL Sodium Level 138 136-145 mmol/L Potassium Level 3.7 3.5-5.1 mmol/L Chloride Level 100 98-107 mmol/L Carbon Dioxide Level 33 21-32 mmol/L Anion Gap 5.0 3-11 mmol/L Blood Urea Nitrogen 12 7-18 mg/dl Creatinine 1.24 0.60-1.40 mg/dl Est Creatinine Clear Calc Drug Dose 64.4 ml/min Estimated GFR () 67.8 Estimated GFR (Non- 58.5 BUN/Creatinine Ratio 9.3 10-20 Random Glucose 111 70-99 mg/dl Calcium Level 9.2 8.5-10.1 mg/dl Total Bilirubin 0.5 0.2-1 mg/dl Aspartate Amino Transf (AST/SGOT) 38 15-37 U/L Alanine Aminotransferase (ALT/SGPT) 31 12-78 U/L Alkaline Phosphatase 86 45-117 U/L Total Protein 7.4 6.4-8.2 gm/dl Albumin 2.4 3.4-5.0 gm/dl Globulin 5.0 2.5-4.0 gm/dl Albumin/Globulin Ratio 0.5 0.9-2
--- NOTE | 2018-02-14 16:33 | Discharge Instructions ---
Discharge Instructions Date of Service February 14, 2018. Admission Reason for Admission: Pneumonia Discharge Discharge Diagnosis / Problem: DISCHARGE AGAINST MEDICAL ADVICE. Interstitial lung disease.Pneumonia Discharge Goals Goal(s): Improve function, Increase independence, Improve disease control Activity Recommendations Activity Limitations: per Instructions/Follow-up section . Instructions / Follow-Up Instructions / Follow-Up HOSPITAL COURSE 72 year old M who was recently [facility] was treated for pneumonia with also echocardiogram of grade 2 diastolic dysfunction and discharged with oral antibiotic and transferred from [facility] for worsening acute respiratory failure and transferred to the ICU of [facility] on 01/11/18. Transferred out of ICU on 01/13/18. Patient was then discharged on 01/21/18. Patient returns to the hospital emergency room on 02/08/18. Patient reports that has been again having more coughing with clear sputum and more dyspnea. CT Chest without Contrast 1. Interval development of diffuse lung infiltrates evidenced by diffuse added density of the lungs. This is concerning for active inflammation or acute atypical pneumonia. Less likely this may represent pulmonary edema. 2. Resolution of prior reticulonodular infiltrates, including a 1.4 cm right lower lobe nodular consolidation. 3. Background apical predominant emphysematous changes. 4. Findings could suggest chronic aspiration. Additionally, evidence of layering debris in the right mainstem bronchus further raises concern for aspiration. 5. Post surgical changes of coronary artery bypass Plan 1. Bilateral pneumonia. 2. Emphysema. 3. Interstitial lung disease.Pneumonia vs other pulmonary etiologies -was started broad spectrum antibiotics given recent hospitalizations with Vancomycin and Zosyn on 02/09/18 -sputum culture light normal iván -blood culture results negative - Vancomycin stopped on 02/10/18. Continue Zosyn -patient s/p bronchoscopy 02/11/18. The secretions were mild to moderate on the left side. They were minimal on the right. There is a preliminary growth of gram-negative bacilli which is a pansensitive SERRATIA MARCESCENS. Zosyn stopped on 02/13/18 and switched to Levofloxacin as per pulmonary consult. ID consult also requested for further input. -as per pulmonary service, nebulizer treatment as 3 times a day as scheduled instead of prn -pulmonary service sent hypersensitivity pneumonitis profile, pending results -protein electrophoresis sent as recommended by pulmonary service, pending results -02/14/18 Patient ambulated while on oxygen. Became Dyspneic and Tachycardic to the 140s. Patient insisted that despite symptoms he wishes to go home today against medical advice -Discharge Prescription made for 5 days of Levofloxacin of 750 mg daily as discussed with pulmonary doctor -Appointments made for patient to see pulmonary clinic candice Espana at 1PM on 02/23/18 [place] [id number], [address] [place] [address] Wednesday through Wednesday, from 8:30 am to 5:00 pm Compensated CHF as per cardiology service -Cardiac history of CAD with CABG and PCI: Continue spirolactone, continue metoprolol succinate, Continue aspirin, rosuvastatin, ranexa. -troponins negative on this admission -cardiology service does not deem patient to be in acute CHF exacerbation and lung findings on this admission is attributed to lung process such as pneumonia , also that there is no need for cardiac catheterization at this time (Compensated congestive heart failure signs and symptoms. No current evidence of acute decompensated systolic or diastolic congestive heart failure.) Fluid Management -monitor renal function and urine output while on diuretics (oral Lasix BID) for chronic CHF -HILARY likely from diuretic use -creatinine downtrended but stable -will resume Lasix which was held on 02/12/18 while hematuria assessed, continue Lasix, replete electrolytes including potassium Hematuria -has arcos for urinary retention -hematuria between 02/10/18 and 02/11/18, heparin subcutaneous stopped, IV fluids was given and Lasix was held -hematuria appears resolved and patient had arcos removed on 02/13/18 and completed trial of void History of recent home oxygen use -Continue oxygen Patient has smoking history in the past but quit for years Allergies to sulfa antibiotics but no known reactions to Lasix PT/OT evaluations requested Full Code DVT ppx: SCDs due to previous hematuria Family [phone] DISCHARGE INSTRUCTIONS Discharge Against Medical Advice -Discharge Prescription made for 5 days of Levofloxacin of 750 mg daily as discussed with pulmonary doctor -Appointments made for patient to see pulmonary clinic candice Espana at 1PM [facility] [address], [address] [place] [address] Wednesday through Wednesday, from 8:30 am to 5:00 pm Follow up with [address] Duran 02/16/18 at 10:45 AM Current Hospital Diet Patient's current hospital diet: AHA Diet (Heart Healthy) Discharge Diet Recommended Diet: AHA Diet (Heart Healthy) Procedures Procedures Performed: Bronchoscopy Pending Studies Studies pending at discharge: no Laboratory Results 02/14/18 05:43 Red Blood Count 3.59, Mean Corpuscular Volume 90.3, Mean Corpuscular Hemoglobin 28.1, Mean Corpuscular Hemoglobin Concent 31.2, Mean Platelet Volume 9.1, Neutrophils (%) (Auto) 65.3, Lymphocytes (%) (Auto) 23.5, Monocytes (%) (Auto) 8.3, Eosinophils (%) (Auto) 2.0, Basophils (%) (Auto) 0.1, Neutrophils # (Auto) 4.89, Lymphocytes # (Auto) 1.76, Monocytes # (Auto) 0.62, Eosinophils # (Auto) 0.15, Basophils # (Auto) 0.01 02/14/18 05:43 Test 02/08/18 16:10 02/08/18 17:32 02/08/18 19:27 02/09/18 05:49 Magnesium Level 2.8 mg/dl (1.8-2.4) Procalcitonin 0.13 ng/ml (0-0.5) Bedside Troponin I < 0.030 ng/ml (0-0.045) Lactic Acid Level 2.0 mmol/L (0.4-2.0) Troponin I < 0.015 ng/ml (0-0.045) Test 02/09/18 15:30 02/10/18 15:39 02/11/18 09:19 02/11/18 11:47 Urine WBC (Auto) 10-30 /hpf (0-5) Urine RBC (Auto) 0-4 /hpf (0-4) Urine Hyaline Casts (Auto) 1-5 /lpf (0-5) Urine Epithelial Cells (Auto) >30 /lpf (0-5) Urine Bacteria (Auto) NEG (NEG) Urine Renal Epithelial Cells /lpf (0-5) Urine Pathogenic Casts 1-5 GRANULAR CASTS /lpf (0) Urine Yeast (Auto) (NONE PRSENT) Vancomycin Level Trough 27.1 mcg/ml (SEE COMMENT) Urine Color RED Urine Appearance CLEAR (CLEAR) Urine pH (4.5-7.5) Urine Specific [place] 1.009 (1.000-1.030) Urine Protein (NEG) Urine Glucose (UA) (NEG) Urine Ketones (NEG) Urine Occult Blood (NEG) Urine Nitrite (NEG) Urine Bilirubin (NEG) Urine Urobilinogen (NEG) Urine Leukocyte Esterase (NEG) Urine RBC >30 /hpf (0-4) Urine WBC 10-30 /hpf (0-5) Urine Epithelial Cells 0-5 /lpf (0-5) Urine Bacteria 3+ (NEG) Test 02/12/18 12:58 02/13/18 05:56 02/14/18 05:43 Pro-B-Type Natriuretic Peptide 1009 pg/ml (0-900) White Blood Count 7.49 K/uL (4.8-10.8) Red Blood Count 3.59 M/uL (4.7-6.1) Hemoglobin 10.1 g/dL (14.0-18.0) Hematocrit 32.4 % (42-52) Mean Corpuscular Volume 90.3 fL (80-100) Mean Corpuscular Hemoglobin 28.1 pg (25-34) Mean Corpuscular Hemoglobin Concent 31.2 g/dl (32-36) Platelet Count 154 K/uL (130-400) Mean Platelet Volume 9.1 fL (7.4-10.4) Neutrophils (%) (Auto) 65.3 % Lymphocytes (%) (Auto) 23.5 % Monocytes (%) (Auto) 8.3 % Eosinophils (%) (Auto) 2.0 % Basophils (%) (Auto) 0.1 % Neutrophils # (Auto) 4.89 K/uL (1.4-6.5) Lymphocytes # (Auto) 1.76 K/uL (1.2-3.4) Monocytes # (Auto) 0.62 K/uL (0.11-0.59) Eosinophils # (Auto) 0.15 K/uL (0-0.5) Basophils # (Auto) 0.01 K/uL (0-0.2) RDW Standard Deviation 54.1 fL (36.4-46.3) RDW Coefficient of Variation 17.0 % (11.5-14.5) Immature Granulocyte % (Auto) 0.8 % Immature Granulocyte # (Auto) 0.06 K/uL (0.00-0.02) Anion Gap 5.0 mmol/L (3-11) Est Creatinine Clear Calc Drug Dose 64.4 ml/min Estimated GFR () 67.8 Estimated GFR (Non- 58.5 BUN/Creatinine Ratio 9.3 (10-20) Calcium Level 9.2 mg/dl (8.5-10.1) Total Bilirubin 0.5 mg/dl (0.2-1) Aspartate Amino Transf (AST/SGOT) 38 U/L (15-37) Alanine Aminotransferase (ALT/SGPT) 31 U/L (12-78) Alkaline Phosphatase 86 U/L (45-117) Total Protein 7.4 gm/dl (6.4-8.2) Albumin 2.4 gm/dl (3.4-5.0) Globulin 5.0 gm/dl (2.5-4.0) Albumin/Globulin Ratio 0.5 (0.9-2) Date/Time Source Procedure Growth Status 02/08/18 19:43 Blood Blood Culture - Final NO GROWTH Complete 02/08/18 20:05 Nasal MRSA DNA Surveillance Screen - Final Specimen Negative for MRSA by DNA Probe Complete 02/13/18 11:30 Stool C.difficile Toxin B Gene (PCR) - Final No C. difficile toxin B gene detected Complete 02/11/18 11:47 Bronchial Washings Right & Left Lower Lobe Fungal Smear - Final Resulted 02/11/18 11:47 Fungal Culture - Preliminary Yeast Not Baylee Albicans Resulted 02/11/18 09:19 Urine,Catheterized Urine Culture - Final NO GROWTH - LESS THAN 1,000 COLONIES/ML Complete Medical Emergencies . Who to Call and When: Medical Emergencies: If at any time you feel your situation is an emergency, please call 911 immediately. . Non-Emergent Contact Non-Emergency issues call your: Primary Care Provider, District Plant Engineer Call Non-Emergent contact if: you have any medication questions . . "Provider Documentation" section prepared by Gee Vasquez. .
--- NOTE | 2018-02-14 21:43 | Discharge Summary ---
Discharge Summary Date of Service February 14, 2018. Discharge Summary Admission Date: February 08, 2018 at 18:36 Discharge Date: February 14, 2018 Discharge Disposition: Home ( DISCHARGE AGAINST MEDICAL ADVICE.) Principal Diagnosis: DISCHARGE AGAINST MEDICAL ADVICE. Interstitial lung disease. Pneumonia Secondary Diagnoses/Problems: CHF Urinary retention Hematuria HILARY Chronic oxygen therapy Procedures: Bronchoscopy Admission Information HPI (per Admitting provider): 72 year old M who was recently discharged from [facility] after he was treated for pneumonia with also echocardiogram of grade 2 diastolic dysfunction and discharged with oral antibiotic and transferred from [facility] for worsening acute respiratory failure and transferred to the ICU of [facility] on 01/11/18. Transferred out of ICU on 01/13/18. Patient was then discharged on 01/21/18. Patient returns to the hospital emergency room on 02/08/18. Patient reports that has been again having more coughing with clear sputum and more dyspnea. Patient reports that he has been as instructed using oxygen with exertion but recently even at rest. Patient reports that he has been using Lasix BID as instructed. He denies worsening lower extremity edema. His lower extremity swelling as seen from last admission is improved. He reports that now when he takes Lasix he does not make a lot of urine. Physical Exam (per Admitting): General Appearance: no apparent distress Head: normocephalic, atraumatic Eyes: normal inspection, EOMI ENT: normal ENT inspection, hearing grossly normal, pharynx normal Neck: supple, no JVD, trachea midline Respiratory/Chest: chest non-tender, no respiratory distress, no accessory muscle use, + crackles, + pertinent finding (on nasal cannula) Cardiovascular: regular rate, rhythm, no JVD, normal peripheral pulses, + pertinent finding (+1 edema of lower extremities bilaterally) Abdomen/GI: normal bowel sounds, non tender, soft, no organomegaly, no pulsatile mass Back: normal inspection, no muscle spasm, normal range of motion Extremities/Musculoskelatal: normal inspection, no calf tenderness, non- tender Neurologic/Psych: no motor/sensory deficits, alert, normal mood/affect, oriented x 3 Skin: normal color, warm/dry, no rash Hospital Course HOSPITAL COURSE 72 year old M who was recently discharged from [facility] on 12/29/17 under [facility]ist group after he was treated for pneumonia with also echocardiogram of grade 2 diastolic dysfunction and discharged with oral antibiotic and transferred from [facility] for worsening acute respiratory failure and transferred to the ICU of [facility] on 01/11/18. Transferred out of ICU on 01/13/18. Patient was then discharged on 01/21/18. Patient returns to the hospital emergency room on 02/08/18. Patient reports that has been again having more coughing with clear sputum and more dyspnea. CT Chest without Contrast 1. Interval development of diffuse lung infiltrates evidenced by diffuse added density of the lungs. This is concerning for active inflammation or acute atypical pneumonia. Less likely this may represent pulmonary edema. 2. Resolution of prior reticulonodular infiltrates, including a 1.4 cm right lower lobe nodular consolidation. 3. Background apical predominant emphysematous changes. 4. Findings could suggest chronic aspiration. Additionally, evidence of layering debris in the right mainstem bronchus further raises concern for aspiration. 5. Post surgical changes of coronary artery bypass Plan 1. Bilateral pneumonia. 2. Emphysema. 3. Interstitial lung disease.Pneumonia vs other pulmonary etiologies -was started broad spectrum antibiotics given recent hospitalizations with Vancomycin and Zosyn on 02/09/18 -sputum culture light normal iván -blood culture results negative - Vancomycin stopped on 02/10/18. Continue Zosyn -patient s/p bronchoscopy 02/11/18. The secretions were mild to moderate on the left side. They were minimal on the right. There is a preliminary growth of gram-negative bacilli which is a pansensitive SERRATIA MARCESCENS. Zosyn stopped on 02/13/18 and switched to Levofloxacin as per pulmonary consult. ID consult also requested for further input. -as per pulmonary service, nebulizer treatment as 3 times a day as scheduled instead of prn -pulmonary service sent hypersensitivity pneumonitis profile, pending results -protein electrophoresis sent as recommended by pulmonary service, pending results -02/14/18 Patient ambulated while on oxygen. Became Dyspneic and Tachycardic to the 140s. Patient insisted that despite symptoms he wishes to go home today against medical advice -Discharge Prescription made for 5 days of Levofloxacin of 750 mg daily as discussed with pulmonary doctor -Appointments made for patient to see pulmonary clinic candice Espana at 1PM [facility] [address], [address] [place] [address] Wednesday through Wednesday, from 8:30 am to 5:00 pm Compensated CHF as per cardiology service -Cardiac history of CAD with CABG and PCI: Continue spirolactone, continue metoprolol succinate, Continue aspirin, rosuvastatin, ranexa. -troponins negative on this admission -cardiology service does not deem patient to be in acute CHF exacerbation and lung findings on this admission is attributed to lung process such as pneumonia , also that there is no need for cardiac catheterization at this time (Compensated congestive heart failure signs and symptoms. No current evidence of acute decompensated systolic or diastolic congestive heart failure.) Fluid Management -monitor renal function and urine output while on diuretics (oral Lasix BID) for chronic CHF -HILARY likely from diuretic use -creatinine downtrended but stable -will resume Lasix which was held on 02/12/18 while hematuria assessed, continue Lasix, replete electrolytes including potassium Hematuria -has arcos for urinary retention -hematuria between 02/10/18 and 02/11/18, heparin subcutaneous stopped, IV fluids was given and Lasix was held -hematuria appears resolved and patient had arcos removed on 02/13/18 and completed trial of void History of recent home oxygen use -Continue oxygen Patient has smoking history in the past but quit for years Allergies to sulfa antibiotics but no known reactions to Lasix PT/OT evaluations requested Full Code DVT ppx: SCDs due to previous hematuria Family [phone] DISCHARGE INSTRUCTIONS Discharge Against Medical Advice -Discharge Prescription made for 5 days of Levofloxacin of 750 mg daily as discussed with pulmonary doctor -Appointments made for patient to see pulmonary clinic candice Espana at 1PM [facility] [facility] [address] [facility] [address], [address] [place] [address] Wednesday through Wednesday, from 8:30 am to 5:[address] Follow up [address] Duran 02/16/18 at 10:45 AM Total time spent on discharge = This includes examination of the patient, discharge planning, medication reconciliation, and communication with other providers. Discharge Instructions see above
== END 2018-02-14 16:38 | disposition left against medical advice (07) | DRG 166 ==
LOC: EDBD 14:51 → C.EDB 14:52 → C.2T 18:36 → ENRESERV 19:36
PROVIDERS: ADMIT Hospitalist; ATTEND Hospitalist
PROC: 0B9F8ZX Drainage of Right Lower Lung Lobe, Via Natural or Artificial Opening Endoscopic, Diagnostic (ICD-10-PCS; principal; 2018-02-11 11:00)
PROC: 0B9L8ZX Drainage of Left Lung, Via Natural or Artificial Opening Endoscopic, Diagnostic (ICD-10-PCS; principal; 2018-02-11 11:00)
DX: J18.9 Pneumonia, unspecified organism (principal); J96.01 Acute respiratory failure with hypoxia; J84.9 Interstitial pulmonary disease, unspecified; N17.9 Acute kidney failure, unspecified; I50.42 Chronic combined systolic (congestive) and diastolic (congestive) heart failure; I25.10 Atherosclerotic heart disease of native coronary artery without angina pectoris; M10.9 Gout, unspecified; Z85.51 Personal history of malignant neoplasm of bladder; E78.5 Hyperlipidemia, unspecified; J43.9 Emphysema, unspecified; I65.22 Occlusion and stenosis of left carotid artery; M19.90 Unspecified osteoarthritis, unspecified site; Z87.890 Personal history of sex reassignment; Z95.1 Presence of aortocoronary bypass graft; T50.2X5A Adverse effect of carbonic-anhydrase inhibitors, benzothiadiazides and other diuretics, initial encounter; R33.9 Retention of urine, unspecified; R31.9 Hematuria, unspecified; F41.9 Anxiety disorder, unspecified; Z88.2 Allergy status to sulfonamides; B96.89 Other specified bacterial agents as the cause of diseases classified elsewhere